=== PATIENT | female | born 1980 | race Caucasian/White ===

== ENCOUNTER → 2017-01-24 | Outpatient (CLI) | payer OTHER ==
[2017-01-24 07:54] LABS: Blood Urea Nitrogen 17 mg/dL (7-17); Cholesterol 184 mg/dL (<200); Glucose 90 mg/dL (74-99); HDL Cholesterol 60 mg/dL (40-60); Non-African American GFR(MDRD) >60 (>60 ml/min/1.73 sqM); Triglycerides 126 mg/dL (<150)
[2017-01-24 09:13] LABS: Hemoglobin A1C 5.1 % (4.2-6.1)
[2017-01-24 11:07] LABS: Lithium 0.4 mmol/L
== END | disposition home or self-care (01) ==
LOC: LABWHC1 07:11
PROVIDERS: ATTEND Psychiatry & Neurology Psychiatry
DX: Z51.81 Encounter for therapeutic drug level monitoring (principal); Z79.899 Other long term (current) drug therapy
CPT/HCPCS: 36415; 80061; 80178; 82565; 82947; 83036; 84439; 84443; 84520

== ENCOUNTER 2017-02-02 19:40 | Emergency (ER) | payer OTHER ==
[2017-02-02 19:55] VITALS: BP 135/76; PULSE 100; RESP 18; TEMP 97
--- NOTE | 2017-02-02 20:15 | ED ---
General Adult HPI - General Chief complaint: Extremity Problem,Nontraumatic Stated complaint: leg swelling/burning/numbness Time Seen by Provider: 02/02/17 20:04 Source: patient, RN notes reviewed Mode of arrival: wheelchair Limitations: no limitations - History of Present Illness Initial comments: 36-year-old female presenting for left foot pain and swelling. Patient states this began about 3 days ago and has been persistent. States she feels a sensation like her toes are turning blue and she is concerned she is not getting good blood flow to them. She states that she did recently get started on a thyroid medication for low thyroid levels about a week ago. She denies any history of blood clots. She denies any shortness of breath or chest pain associated. She denies any trauma or injury. - Related Data Home Medications Medication Instructions Recorded Confirmed ARIPiprazole [Abilify] 10 mg PO HS 02/02/17 02/02/17 Dextroamphetamine/Amphetamine 20 mg PO BID 02/02/17 02/02/17 [Adderall] Levomilnacipran Hydrochloride 40 mg PO HS 02/02/17 02/02/17 [Fetzima] Levothyroxine Sodium [Synthroid] 50 mcg PO DAILY 02/02/17 02/02/17 [place] Carbonate 600 mg PO HS 02/02/17 02/02/17 Allergies Allergy/AdvReac Type Severity Reaction Status Date / Time cephalexin monohydrate Allergy Mild Dyspnea Verified 02/02/17 20:17 [From [employer]] Review of Systems ROS Statement: Those systems with pertinent positive or pertinent negative responses have been documented in the HPI. ROS Other: All systems not noted in ROS Statement are negative. 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 Additional Past Medical History / Comment(s): Narcolepsy History of Any Multi-Drug Resistant Organisms: None Reported Past Surgical History: Hernia Repair Past Psychological History: Bipolar, Depression Smoking Status: Heavy tobacco smoker Past Alcohol Use History: None Reported Additional Past Alcohol Use History / Comment(s): He is a smoker one pack per day since she was 10 years of age. She denies any street drug or marijuana use. She drinks alcohol very rare basis. Patient is . 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 Past Drug Use History: None Reported Additional Drug Use History / Comment(s): none - Past Family History Mother Family Medical History: Cancer Additional Family Medical History / Comment(s): Mother of lung cancer with history of smoking. Father Additional Family Medical History / Comment(s): Father from suicide. He had history of alcoholism and drug abuse. Sister(s) Additional Family Medical History / Comment(s): She has one sister with no major medical problems. Brother(s) Additional Family Medical History / Comment(s): She has 2 half brothers with no major medical problems. Daughter(s) Additional Family Medical History / Comment(s): She has 4 children. One daughter at 17, son 14, son 12, son 6. Youngest has autism. General Exam - General Exam Comments Initial Comments: General: Awake and Alert. No acute distress. Does not appear acutely ill. Eyes: RUDDY, EOM intact. No nystagmus. No scleral icterus. HENT: Atraumatic, normocephalic. Mucous membranes moist. Trachea midline. Neck: The neck is supple, there is no tenderness or JVD. Cardiovascular: Regular rate and rhythm. No murmur, rub, or gallop is appreciated. Distal pulses intact, 2+ PT and DP bilaterally. Respiratory: Lungs are clear to auscultation bilaterally. No wheezes, rales, rhonchi. No respiratory distress. Gastrointestinal: Soft, Nontender. No rebound or guarding. Non-distended. No masses or organomegaly noted. No CVA tenderness. Musculoskeletal: Mild tenderness to the bottom of the left foot, trace swelling in this area. Otherwise MSK exam with no tenderness. Normal ROM. No gross deformity. No strength deficits. Neurological: A&Ox3. CN II-XII grossly intact, There are no obvious motor or sensory deficits. Coordination appears grossly intact. Speech is normal. Skin: Skin is warm and dry and no rashes or lesions are noted. Psychiatric: Cooperative, appropriate mood & affect, normal judgment. Limitations: no limitations Course Vital Signs 02/02/17 19:51 Temperature 97 F L Pulse Rate 100 Respiratory 18 Rate Blood Pressure 135/76 O2 Sat by Pulse 99 Oximetry Medical Decision Making - Medical Decision Making 36-year-old female presented for left foot pain and swelling. Vitals are stable. Examination with mild tenderness to the bottom of the foot and possible trace edema. She has good arterial pulses intact B/L DP and PT. There is no calf pain on exam. There is lower suspicion of DVT however given symptoms left lower extremity duplex was performed with no evidence of DVT. Discussed that this could be possible side effect to recent initiation of her thyroid medication. Recommend NSAIDs for pain. Recommend heat and elevation as needed. Discussed close follow-up with PCP for further evaluation. Discussed concerning signs symptoms for immediate return to the ED. Patient is agreeable with plan and discharge home. - Radiology Data Radiology results: report reviewed Disposition Clinical Impression: Left foot pain, Foot swelling Disposition: HOME SELF-CARE Condition: Stable Instructions: Swollen Joint (ED), Levothyroxine (By mouth) Referrals: Ashley Dunbar MD [Primary Care Provider] - 1-2 days Time of Disposition: 21:00
--- NOTE | 2017-02-02 20:45 | US ---
EXAMINATION TYPE: US venous doppler duplex LE LT DATE OF EXAM: 02/02/2017 8:36 PM COMPARISON: NONE CLINICAL HISTORY: Pain in left foot. Patient states she noticed swelling in her left foot x3 days ago SIDE PERFORMED: Left VESSELS IMAGED: External Iliac Vein (EIV) Common Femoral Vein Deep Femoral Vein Greater Saphenous Vein * Femoral Vein Popliteal Vein Small Saphenous Vein * Proximal Calf Veins (* superficial vessels) TECHNOLOGIST IMPRESSION: Left Leg: Negative for DVT IMPRESSION: No sonographic evidence of deep venous thrombosis within the left lower extremity.
== END 2017-02-02 21:04 | disposition home or self-care (01) ==
LOC: EC 19:40
DX: M79.672 Pain in left foot (principal); M79.89 Other specified soft tissue disorders; F31.9 Bipolar disorder, unspecified; F17.200 Nicotine dependence, unspecified, uncomplicated; Z79.899 Other long term (current) drug therapy; Z88.1 Allergy status to other antibiotic agents
CPT/HCPCS: 99283

== ENCOUNTER → 2017-04-11 | Outpatient (CLI) | payer OTHER ==
[2017-04-11 10:48] LABS: Lithium 0.5 mmol/L
== END | disposition home or self-care (01) ==
LOC: LABWHC1 08:50
PROVIDERS: ATTEND Psychiatry & Neurology Psychiatry
DX: Z51.81 Encounter for therapeutic drug level monitoring (principal); Z79.899 Other long term (current) drug therapy
CPT/HCPCS: 36415; 80178; 84439; 84443

== ENCOUNTER → 2017-05-31 | Outpatient (CLI) | payer OTHER | END | disposition home or self-care (01) | LOC: LABWHC1 12:37 | PROVIDERS: ATTEND Internal Medicine Sleep Medicine | DX: G47.419 Narcolepsy without cataplexy (principal) | CPT/HCPCS: 36415 ==

== ENCOUNTER → 2018-01-02 | Outpatient (CLI) | payer OTHER ==
[2018-01-02 09:38] LABS: Basophils # (A) 0.1 k/uL (0-0.2); Basophils % (A) 1 %; Eosinophils # (A) 0.3 k/uL (0-0.7); Eosinophils % (A) 2 %; HCT 45.5 % (34.0-46.0); HGB 14.8 gm/dL (11.4-16.0); Lymphocytes # (A) 2.5 k/uL (1.0-4.8); Lymphocytes % (A) 19 %; MCH 29.6 pg (25.0-35.0); MCHC 32.6 g/dL (31.0-37.0); MCV 90.9 fL (80.0-100.0); Mean Platelet Volume 7.9; Monocytes # (A) 0.6 k/uL (0-1.0); Monocytes % (A) 5 %; Neutrophils # (A) 9.5 k/uL (1.3-7.7); Neutrophils % (A) 72 %; Platelet Count 242 k/uL (150-450); RBC 5.01 m/uL (3.80-5.40); RDW 11.9 % (11.5-15.5); WBC 13.2 k/uL (3.8-10.6)
[2018-01-02 10:49] LABS: ALT 27 U/L (9-52); AST 17 U/L (14-36); Albumin 4.4 g/dL (3.5-5.0); Alkaline Phosphatase 67 U/L (38-126); Anion Gap 9 mmol/L; Blood Urea Nitrogen 16 mg/dL (7-17); Calcium 10.1 mg/dL (8.4-10.2); Carbon Dioxide 28 mmol/L (22-30); Chloride 103 mmol/L (98-107); Cholesterol 176 mg/dL (<200); Glucose 94 mg/dL (74-99); HDL Cholesterol 52 mg/dL (40-60); LDL Cholesterol,Calculated 91 mg/dL (0-99); Lithium 0.4 mmol/L; Potassium 5.3 mmol/L (3.5-5.1); Sodium 140 mmol/L (137-145); Total Bilirubin 0.3 mg/dL (0.2-1.3); Total Protein 7.1 g/dL (6.3-8.2); Triglycerides 165 mg/dL (<150)
[2018-01-02 11:04] LABS: T4, Free (Free Thyroxine) 0.83 ng/dL (0.78-2.19)
[2018-01-02 16:36] LABS: Hemoglobin A1C 5.4 % (4.0-6.0)
== END | disposition home or self-care (01) ==
LOC: LABWHC1 09:01
PROVIDERS: ATTEND Nurse Practitioner
DX: F31.81 Bipolar II disorder (principal); G47.419 Narcolepsy without cataplexy; Z79.899 Other long term (current) drug therapy
CPT/HCPCS: 36415; 80053; 80061; 80178; 83036; 84439; 84443; 85025

== ENCOUNTER 2018-10-22 09:11 | Observation (INO) | payer OTHER ==
[2018-10-22] MEDS ORDERED: SODIUM CHLORIDE 0.9% 1,000 ML IV STA (09:33)
[2018-10-22 09:38] LABS: Glucose,Whole Blood 109 mg/dL (75-99)
[2018-10-22 09:56] LABS: Basophils # (A) 0.1 k/uL (0-0.2); Basophils % (A) 1 %; Eosinophils # (A) 0.1 k/uL (0-0.7); Eosinophils % (A) 1 %; HCT 44.1 % (34.0-46.0); HGB 14.8 gm/dL (11.4-16.0); Lymphocytes # (A) 2.6 k/uL (1.0-4.8); Lymphocytes % (A) 24 %; MCH 29.9 pg (25.0-35.0); MCHC 33.5 g/dL (31.0-37.0); MCV 89.3 fL (80.0-100.0); Mean Platelet Volume 8.4; Monocytes # (A) 0.5 k/uL (0-1.0); Monocytes % (A) 5 %; Neutrophils # (A) 7.4 k/uL (1.3-7.7); Neutrophils % (A) 68 %; Platelet Count 226 k/uL (150-450); RBC 4.93 m/uL (3.80-5.40); RDW 12.1 % (11.5-15.5); WBC 10.8 k/uL (3.8-10.6)
[2018-10-22 10:03] LABS: Appearance,Urine Clear (Clear); Bilirubin,Urine Negative (Negative); Blood,Urine Small (Negative); Color,Urine Light Yellow; Glucose,Urine (UA) Negative (Negative); Ketones,Urine Negative (Negative); Leukocyte Esterase,Urine Negative (Negative); Nitrite,Urine Negative (Negative); Protein,Urine Negative (Negative); Specific Gravity,Urine 1.003 (1.001-1.035); Squamous Epithelial Cell,Urine 2 /hpf (0-4); Urobilinogen,Urine <2.0 mg/dL (<2.0); WBC,Urine 1 /hpf (0-5)
[2018-10-22 10:11] LABS: ALT 20 U/L (9-52); AST 17 U/L (14-36); Albumin 4.4 g/dL (3.5-5.0); Alkaline Phosphatase 65 U/L (38-126); Anion Gap 8 mmol/L; Blood Urea Nitrogen 14 mg/dL (7-17); Calcium 9.9 mg/dL (8.4-10.2); Carbon Dioxide 26 mmol/L (22-30); Chloride 106 mmol/L (98-107); Glucose 106 mg/dL (74-99); Magnesium 1.9 mg/dL (1.6-2.3); Potassium 4.3 mmol/L (3.5-5.1); Sodium 140 mmol/L (137-145); Total Bilirubin 0.4 mg/dL (0.2-1.3); Total Protein 7.3 g/dL (6.3-8.2)
[2018-10-22 10:14] LABS: Creatine Kinase 74 U/L (30-135)
--- NOTE | 2018-10-22 10:14 | XR ---
EXAMINATION TYPE: XR chest 2V DATE OF EXAM: 10/22/2018 COMPARISON: 07/26/2015 HISTORY: Altered mental status TECHNIQUE: Frontal and lateral views of the chest are obtained. FINDINGS: There is no focal air space opacity, pleural effusion, or pneumothorax seen. The cardiac silhouette size is within normal limits. The osseous structures are intact. IMPRESSION: No acute cardiopulmonary process.
--- NOTE | 2018-10-22 10:17 | CT ---
EXAMINATION TYPE: CT brain wo con DATE OF EXAM: 10/22/2018 COMPARISON: none HISTORY: Lt facial numbness CT DLP: 1123.4 mGycm. Automated Exposure Control for Dose Reduction was Utilized. TECHNIQUE: CT scan of the head is performed without contrast. FINDINGS: There is no acute intracranial hemorrhage, mass effect, or midline shift identified. The ventricles and sulci are within normal limits in size. The globes are intact and the visualized sin uses are remarkable for possible mucus retention cyst or polyp left maxillary sinus. IMPRESSION: No acute intracranial hemorrhage, mass effect, or midline shift is seen.
[2018-10-22 10:20] LABS: INR 1.1 (<1.2); Partial Thromboplastin Time 24.6 sec (22.0-30.0); Prothrombin Time 10.3 sec (9.0-12.0)
[2018-10-22 10:27] LABS: Creatine Kinase MB 1.3 ng/mL (0.0-2.4); Troponin I <0.012 ng/mL (0.000-0.034)
--- NOTE | 2018-10-22 11:57 | ED ---
Neuro HPI - General Chief Complaint: Neuro Symptoms/Deficit Stated Complaint: lt sided facial numbness Time Seen by Provider: 10/22/18 09:20 Source: patient Mode of arrival: ambulatory Limitations: no limitations - History of Present Illness Is the patient presenting with stroke symptoms?: Yes - Related Data Home Medications: Home Medications Medication Instructions Recorded Confirmed Dextroamphetamine/Amphetamine 20 mg PO BID 02/02/17 10/22/18 [Adderall] [place] Carbonate 600 mg PO HS 02/02/17 10/22/18 Allergies/Adverse Reactions: Allergies Allergy/AdvReac Type Severity Reaction Status Date / Time cephalexin monohydrate Allergy Mild Dyspnea Verified 10/22/18 09:49 [From Keflex] Review of Systems ROS Statement: Those systems with pertinent positive or pertinent negative responses have been documented in the HPI. ROS Other: All systems not noted in ROS Statement are negative. General Exam Limitations: no limitations Stroke MDM - Lab Data Result diagrams: 10/22/18 09:32 10/22/18 09:32 Lab Results 10/22/18 10/22/18 10/22/18 Range/Units 09:32 09:32 09:32 WBC 10.8 H (3.8-10.6) k/uL RBC 4.93 (3.80-5.40) m/uL Hgb 14.8 (11.4-16.0) gm/dL Hct 44.1 (34.0-46.0) % MCV 89.3 (80.0-100.0) fL MCH 29.9 (25.0-35.0) pg MCHC 33.5 (31.0-37.0) g/dL RDW 12.1 (11.5-15.5) % Plt Count 226 (150-450) k/uL Neutrophils % 68 % Lymphocytes % 24 % Monocytes % 5 % Eosinophils % 1 % Basophils % 1 % Neutrophils # 7.4 (1.3-7.7) k/uL Lymphocytes # 2.6 (1.0-4.8) k/uL Monocytes # 0.5 (0-1.0) k/uL Eosinophils # 0.1 (0-0.7) k/uL Basophils # 0.1 (0-0.2) k/uL PT (9.0-12.0) sec INR (<1.2) APTT (22.0-30.0) sec Sodium 140 (137-145) mmol/L Potassium 4.3 (3.5-5.1) mmol/L Chloride 106 (98-107) mmol/L Carbon Dioxide 26 (22-30) mmol/L Anion Gap 8 mmol/L BUN 14 (7-17) mg/dL Creatinine 0.73 (0.52-1.04) mg/dL Est GFR (CKD-EPI)AfAm >90 (>60 ml/min/1.73 sqM) Est GFR (CKD-EPI)NonAf >90 (>60 ml/min/1.73 sqM) Glucose 106 H (74-99) mg/dL POC Glucose (mg/dL) (75-99) mg/dL POC Glu Healthcare Business Analyst ID Calcium 9.9 (8.4-10.2) mg/dL Magnesium 1.9 (1.6-2.3) mg/dL Total Bilirubin 0.4 (0.2-1.3) mg/dL AST 17 (14-36) U/L ALT 20 (9-52) U/L Alkaline Phosphatase 65 (38-126) U/L Total Creatine Kinase 74 (30-135) U/L CK-MB (CK-2) 1.3 (0.0-2.4) ng/mL CK-MB (CK-2) Rel Index 1.8 Troponin I <0.012 (0.000-0.034) ng/mL Total Protein 7.3 (6.3-8.2) g/dL Albumin 4.4 (3.5-5.0) g/dL Urine Color Urine Appearance (Clear) Urine pH (5.0-8.0) Ur Specific [place] (1.001-1.035) Urine Protein (Negative) Urine Glucose (UA) (Negative) Urine Ketones (Negative) Urine Blood (Negative) Urine Nitrite (Negative) Urine Bilirubin (Negative) Urine Urobilinogen (<2.0) mg/dL Ur Leukocyte Esterase (Negative) Urine WBC (0-5) /hpf Ur Squamous Epith Cells (0-4) /hpf 10/22/18 10/22/18 10/22/18 Range/Units 09:32 09:32 09:37 WBC (3.8-10.6) k/uL RBC (3.80-5.40) m/uL Hgb (11.4-16.0) gm/dL Hct (34.0-46.0) % MCV (80.0-100.0) fL MCH (25.0-35.0) pg MCHC (31.0-37.0) g/dL RDW (11.5-15.5) % Plt Count (150-450) k/uL Neutrophils % % Lymphocytes % % Monocytes % % Eosinophils % % Basophils % % Neutrophils # (1.3-7.7) k/uL Lymphocytes # (1.0-4.8) k/uL Monocytes # (0-1.0) k/uL Eosinophils # (0-0.7) k/uL Basophils # (0-0.2) k/uL PT 10.3 (9.0-12.0) sec INR 1.1 (<1.2) APTT 24.6 (22.0-30.0) sec Sodium (137-145) mmol/L Potassium (3.5-5.1) mmol/L Chloride (98-107) mmol/L Carbon Dioxide (22-30) mmol/L Anion Gap mmol/L BUN (7-17) mg/dL Creatinine (0.52-1.04) mg/dL Est GFR (CKD-EPI)AfAm (>60 ml/min/1.73 sqM) Est GFR (CKD-EPI)NonAf (>60 ml/min/1.73 sqM) Glucose (74-99) mg/dL POC Glucose (mg/dL) 109 H (75-99) mg/dL POC Glu Healthcare Business Analyst ID Swetha Wilson Calcium (8.4-10.2) mg/dL Magnesium (1.6-2.3) mg/dL Total Bilirubin (0.2-1.3) mg/dL AST (14-36) U/L ALT (9-52) U/L Alkaline Phosphatase (38-126) U/L Total Creatine Kinase (30-135) U/L CK-MB (CK-2) (0.0-2.4) ng/mL CK-MB (CK-2) Rel Index Troponin I (0.000-0.034) ng/mL Total Protein (6.3-8.2) g/dL Albumin (3.5-5.0) g/dL Urine Color Light Yellow Urine Appearance Clear (Clear) Urine pH 7.0 (5.0-8.0) Ur Specific [place] 1.003 (1.001-1.035) Urine Protein Negative (Negative) Urine Glucose (UA) Negative (Negative) Urine Ketones Negative (Negative) Urine Blood Small H (Negative) Urine Nitrite Negative (Negative) Urine Bilirubin Negative (Negative) Urine Urobilinogen <2.0 (<2.0) mg/dL Ur Leukocyte Esterase Negative (Negative) Urine WBC 1 (0-5) /hpf Ur Squamous Epith Cells 2 (0-4) /hpf - NIH Stroke Scale 1a. Level of Consciousness: (0) alert 1b. LOC Questions: (0) answers correctly 1c. LOC Commands: (0) performs tasks correctly 3. Visual: (0) no visual loss 4. Facial Palsy: (0) normal symmetrical movement 5a. Motor Arm Left: (0) no drift 5b. Motor Arm Right: (0) no drift 6a. Motor Leg Left: (0) no drift 6b. Motor Leg Right: (0) no drift 7. Limb Ataxia: (0) absent 8. Sensory: (1) mild/moderate sensory loss 9. Best Language: (0) no aphasia 10. Dysarthria: (0) normal 11. Extinction/Inattention: (0) no abnormality - Thrombolytic Inclusion/Exclusion Thrombolytic Exclusion Criteria: Symptom Onset > 3 Hours - Medical Decision Making I did review the imaging and the tests were performed patient is no evidence of acute findings. She does still have left facial left extremity numbness compared to the right side. She does state that since he began 4 days ago. She currently is not a candidate for intervention she will be admitted for further inpatient evaluation. 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 Additional Past Medical History / Comment(s): Narcolepsy History of Any Multi-Drug Resistant Organisms: None Reported Past Surgical History: Hernia Repair Past Psychological History: Bipolar, Depression Smoking Status: Heavy tobacco smoker Past Alcohol Use History: None Reported Past Drug Use History: None Reported - Past Family History Mother Family Medical History: Cancer Additional Family Medical History / Comment(s): Mother of lung cancer with history of smoking. Father Additional Family Medical History / Comment(s): Father from suicide. He had history of alcoholism and drug abuse. Sister(s) Additional Family Medical History / Comment(s): She has one sister with no major medical problems. Brother(s) Additional Family Medical History / Comment(s): She has 2 half brothers with no major medical problems. Daughter(s) Additional Family Medical History / Comment(s): She has 4 children. One daughter at 17, son 14, son 12, son 6. Youngest has autism. Course Vital Signs 10/22/18 10/22/18 10/22/18 09:14 10:30 11:00 Temperature 98.3 F Pulse Rate 100 86 77 Respiratory 18 20 15 Rate Blood Pressure 135/82 125/89 119/75 O2 Sat by Pulse 100 99 99 Oximetry - Reevaluation(s) Reevaluation #1: 10/22/18 11:51 I did reevaluate the patient after return from CAT scan she has no change in her symptoms. Disposition Clinical Impression: Cerebrovascular accident, Paresthesia Disposition: ADMITTED IP TO THIS [facility] Condition: Stable Referrals: Zuleima Bullock MD [Primary Care Provider] - 1-2 days
[2018-10-22] MEDS ORDERED: ASPIRIN 325 MG TAB PO STA (12:00)
[2018-10-22] MEDS ORDERED: NICOTINE 21MG/24HR PATCH TRANSDERM STA (12:10)
[2018-10-22] MEDS ORDERED: TEMAZEPAM 15 MG CAP PO PRN (15:07)
[2018-10-22] MEDS ORDERED: HYDROcodone/APAP 5-325MG 1 EACH TAB PO PRN (15:07)
[2018-10-22] MEDS ORDERED: ALPRAZolam 0.25 MG TAB PO PRN (15:07)
[2018-10-22] MEDS: SODIUM CHLORIDE 0.9% 1,000 ML IV SCH (17:38)
--- NOTE | 2018-10-22 19:31 | HP ---
HISTORY AND PHYSICAL DATE OF SERVICE: 10/22/2018 CHIEF COMPLAINT: Numbness and weakness of the left side of the body. HISTORY OF PRESENT ILLNESS: This 38-year-old woman with a past medical history of multiple medical problems including narcolepsy, UTI and hernia repair, bilateral inguinal hernia, bipolar depression being followed by Dr. Bullock in the outpatient setting, was complaining of numbness and weakness of the left side of the body. The patient reports several stressors and because of lack of improvement, the patient came to [facility] and was admitted for further evaluation and treatment. There is no history of fever, rigors. No history of headache, loss of consciousness, seizures. PAST MEDICAL HISTORY: Narcolepsy, UTI, bipolar depression. MEDICATIONS: Prior to admission include home medications are: 1. Adderall 20 mg p.o. b.i.d. 2. [place] carbonate 600 mg q.h.s. ALLERGIES: KEFLEX. FAMILY HISTORY: History of lung cancer. SOCIAL HISTORY: History of smoking. Occasional alcohol intake. REVIEW OF SYSTEMS: ENT: No diminished hearing or vision. CARDIOVASCULAR: No angina or palpitations. Respirations: No cough or hemoptysis. GI: No nausea or vomiting. : No dysuria. NERVOUS SYSTEM: No numbness or weakness. ALLERGY/IMMUNOLOGY: No asthma or hay fever. MUSCULOSKELETAL: As mentioned earlier. Hematology/Oncology: No history of anemia. ENDOCRINE: No history of diabetes or hypothyroidism. CONSTITUTIONAL: As mentioned earlier. Dermatology: Negative. Rheumatology: Negative. Psychiatry: As mentioned earlier. PHYSICAL EXAM: Patient is alert, oriented x3. The pulse is 78, blood pressure 112/74, respiration 18, temp is normal. Pulse ox 100 percent on room air. HEENT: Conjunctivae normal. Oral mucosa moist. Neck is no jugular venous distention. No carotid bruit. No lymph node enlargement. Cardiovascular: S1, S2. Respiratory: Breath sounds diminished in the bases. No rhonchi. No crackles. ABDOMEN: Soft, nontender. No mass palpable. Legs: No edema. No swelling. NERVOUS SYSTEM: Higher functions as mentioned earlier. Moves all 4 limbs. No focal motor or sensory deficits. Minimal left facial deviation noted. Otherwise, no sensory abnormality. No sensory or cerebellar dysfunction. Gait normal. Skin: No ulcer, rash or bleeding. JOINTS: No active deforming arthropathy. LABS: At this time shows WBC 10.8 and glucose 106. ASSESSMENT: 1. Numbness and weakness left side of the body, possible acute transient ischemic attack. 2. History of narcolepsy. 3. History of urinary tract infection. 4. Bilateral inguinal hernia repair. 5. Bipolar depression. 6. History of continued ongoing nicotine dependence. RECOMMENDATIONS AND DISCUSSION: This 38-year-old woman who presented with multiple complex medical issues, we will monitor the patient closely, continue the current medications, management and symptomatic treatment. Initiate antiplatelet agents. Otherwise continue to monitor. Smoking cessation. Resume the home medications. I would also recommend lipid panel in the morning. Prognosis guarded. Further recommendations to follow. MMODL / IJN: [id number] /
--- NOTE | 2018-10-22 20:10 | P.CNNES ---
History of Present Illness Consult date: 10/22/18 History of Present Illness: The patient is a 38-year-old right-handed white female who states that today she noticed some numbness in the left upper and lower lip area. She states a 4 days ago she noticed a change in [place] temperature sensation in the left arm and left hand. She also noticed some numbness in the left leg at that time. Also she complains of swelling in the fingers of both hands. She felt that heat sensation in the back of her neck earlier today. She denies any visual disturbance or headache. She denies any swallowing difficulty. The patient takes lithium for bipolar disorder disease but decided to taper off of it over a one-week period. The patient did not inform her psychiatrist regarding this taper. She decided to come off of lithium she states she is not sure. Review of Systems Constitutional: Denies chills, Denies fever Ears, nose, mouth and throat: Denies headache, Denies sore throat Cardiovascular: Denies chest pain, Denies shortness of breath Respiratory: Denies cough Gastrointestinal: Denies abdominal pain, Denies diarrhea, Denies nausea, Denies vomiting Genitourinary: Denies dysuria, Denies hematuria Musculoskeletal: Denies myalgias Neurological: Denies numbness, Denies weakness Psychiatric: Denies anxiety, Denies depression 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 Additional Past Medical History / Comment(s): Narcolepsy, UTI History of Any Multi-Drug Resistant Organisms: None Reported Past Surgical History: Hernia Repair Additional Past Surgical History / Comment(s): Bilateral inguinal hernia repairs Past Anesthesia/Blood Transfusion Reactions: No Reported Reaction Smoking Status: Current every day smoker - Past Family History Mother Family Medical History: Cancer Additional Family Medical History / Comment(s): Mother of lung cancer with history of smoking. Father Additional Family Medical History / Comment(s): Father from suicide. He had history of alcoholism and drug abuse. Sister(s) Additional Family Medical History / Comment(s): She has one sister with no major medical problems. Brother(s) Additional Family Medical History / Comment(s): She has 2 half brothers with no major medical problems. Daughter(s) Additional Family Medical History / Comment(s): She has 4 children. One daughter at 20, son 17, son 15, son 9. Youngest has autism. Medications and Allergies Home Medications Medication Instructions Recorded Confirmed Type Dextroamphetamine/Amphetamine 20 mg PO BID 02/02/17 10/22/18 History [Adderall] [place] Carbonate 600 mg PO HS 02/02/17 10/22/18 History Allergies Allergy/AdvReac Type Severity Reaction Status Date / Time cephalexin monohydrate Allergy Mild Dyspnea Verified 10/22/18 09:49 [From Keflex] Physical Examination - Vital Signs Vital Signs: Vital Signs Temp Pulse Pulse Resp BP BP Pulse Ox 10/22/18 19:51 98.0 F 80 16 123/73 100 10/22/18 17:45 98.7 F 84 142/86 99 10/22/18 17:00 87 18 123/62 99 10/22/18 15:00 85 20 123/75 99 10/22/18 14:00 97 18 123/75 99 10/22/18 13:00 69 18 113/76 98 10/22/18 12:00 78 18 112/74 100 10/22/18 11:00 77 15 119/75 99 10/22/18 10:30 86 20 125/89 99 10/22/18 09:14 98.3 F 100 18 135/82 100 Intake and Output 10/22/18 10/22/18 10/22/18 06:59 14:59 22:59 Other: Weight 63.503 kg - Constitutional General appearance: cooperative - EENT EENT: PERRL, vision intact - Respiratory Respiratory: lungs clear - Cardiovascular Cardiovascular: regular rate, normal S1 - Neurologic Neurologic examination: Mental status: She was awake alert and oriented 3. Her speech was fluent. There is no a aphasia or dysarthria. Cranial nerve examination: Cranial nerves II through XII grossly intact Motor examination: 5 out of 5 throughout Sensory examination: Slightly decreased light touch left leg and left arm Deep tendon reflexes: 1+ and symmetric Coordination: Finger to nose [id number] intact Gait: Not tested Results - Laboratory Findings CBC and BMP: 10/22/18 09:32 10/22/18 09:32 Abnormal Lab Findings: Abnormal Labs 10/22/18 10/22/18 10/22/18 09:32 09:32 09:32 WBC 10.8 H Glucose 106 H POC Glucose (mg/dL) Urine Blood Small H 10/22/18 09:37 WBC Glucose POC Glucose (mg/dL) 109 H Urine Blood Assessment and Plan (1) Left sided numbness Current Visit: Yes Status: Acute SNOMED Code(s): 36704618 (2) Depression Current Visit: No Status: Acute SNOMED Code(s): 59735862 Plan: The patient is a 38-year-old woman who has been experiencing some left-sided symptoms for the past 4 days. Her neurologic examination demonstrates decreased subjective numbness on the left arm and leg. Commend further evaluation with MRI of the brain rule out underlying demyelinating disease. will have a stroke workup including carotid ultrasound and echocardiogram. The patient has had some medication changes in the past week when she self titrated down her lithium. She did this without physician instruction. Recommend psych evaluation for bipolar disorder. Patient has been started on aspirin.
[2018-10-22] MEDS: HEPARIN SODIUM,PORCINE 5,000 UNIT/ML 1 ML VIAL SQ SCH (20:35)
[2018-10-22] MEDS: LITHIUM CARBONATE 300 MG CAP PO SCH (20:35)
[2018-10-22] MEDS: FAMOTIDINE 20 MG TAB PO SCH (20:36)
[2018-10-22] MEDS ORDERED: NON-FORMULARY DRUG (Dextroamphetamine/Amphetamine [Adderall] 20 MG) PO SCH (21:00)
--- NOTE | 2018-10-23 01:54 | US ---
EXAMINATION TYPE: US carotid duplex BILAT DATE OF EXAM: 10/22/2018 COMPARISON: NONE CLINICAL HISTORY: Left-sided numbness. Left side weakness. EXAM MEASUREMENTS: RIGHT: Peak Systolic Velocity (PSV) cm/sec ----- Right CCA: 84.2 ----- Right ICA: 117.7 ----- Right ECA: 101.6 ICA/CCA ratio: 1.4 RIGHT: End Diastole cm/sec ----- Right CCA: 30.4 ----- Right ICA: 64.4 ----- Right ECA: 22.5 LEFT: Peak Systolic Velocity (PSV) cm/sec ----- Left CCA: 91.9 ----- Left ICA: 85.4 ----- Left ECA: 103.2 ICA/CCA ratio: 0.9 LEFT: End Diastole cm/sec ----- Left CCA: 37.0 ----- Left ICA: 38.6 ----- Left ECA: 22.5 VERTEBRALS (direction of flow): Right Vertebral: Antegrade Left Vertebral: Antegrade Rhythm: Normal No significant stenosis seen IMPRESSION: There is antegrade flow in the vertebral arteries. The images and measurements suggest c lose to 0% stenosis in both internal carotid arteries. Criteria for Assigning % of Stenosis / Diameter reduction (Estimation based on the indirect measurements of the internal carotid artery velocities (ICA PSV). 1. Normal (no stenosis)=ICA PSV < 125 cm/s: ratio < 2.0: ICA EDV<40 cm/s. 2. Less than 50% stenosis=ICA PSV < 125 cm/s: ratio < 2.0: ICA EDV<40 cm/s. 3. 50 to 69% stenosis=ICA PSV of 125 to 230 cm/s: ration 2.0 ? 4.0: ICA EDV 40-100 cm/s. 4. Greater than 70% stenosis to near occlusion= ICA PSV > 230 cm/s: ratio > 4.0: ICA EDV > 100 cm/s. 5. Near occlusion= ICA PSV velocities may be low or undetectable: variable ratio and ICA EDV. 6. Total occlusion=unable to detect flow.
[2018-10-23] MEDS: ACETAMINOPHEN TAB 500 MG TAB PO PRN (06:33)
[2018-10-23] MEDS: PANTOPRAZOLE 40 MG TABLET PO SCH (06:33)
[2018-10-23 06:47] LABS: Basophils % (A) 0 %; Eosinophils # (A) 0.2 k/uL (0-0.7); Eosinophils % (A) 3 %; HCT 40.9 % (34.0-46.0); HGB 13.4 gm/dL (11.4-16.0); Lymphocytes # (A) 3.2 k/uL (1.0-4.8); Lymphocytes % (A) 44 %; MCH 29.9 pg (25.0-35.0); MCHC 32.8 g/dL (31.0-37.0); Mean Platelet Volume 8.4; Monocytes # (A) 0.3 k/uL (0-1.0); Monocytes % (A) 5 %; Neutrophils # (A) 3.4 k/uL (1.3-7.7); Neutrophils % (A) 46 %; Platelet Count 201 k/uL (150-450); RBC 4.49 m/uL (3.80-5.40); RDW 12.1 % (11.5-15.5); WBC 7.4 k/uL (3.8-10.6)
[2018-10-23 06:55] LABS: Anion Gap 5 mmol/L; Blood Urea Nitrogen 13 mg/dL (7-17); Calcium 9.4 mg/dL (8.4-10.2); Carbon Dioxide 29 mmol/L (22-30); Chloride 107 mmol/L (98-107); Cholesterol 144 mg/dL (<200); Glucose 88 mg/dL (74-99); HDL Cholesterol 42 mg/dL (40-60); LDL Cholesterol,Calculated 75 mg/dL (0-99); Sodium 141 mmol/L (137-145); Triglycerides 134 mg/dL (<150)
[2018-10-23] MEDS: NICOTINE 14MG/24HR PATCH TRANSDERM SCH (08:42)
[2018-10-23] MEDS: CLOPIDOGREL 75 MG TAB PO SCH (08:42)
[2018-10-23] MEDS: FAMOTIDINE 20 MG TAB PO SCH (08:42)
[2018-10-23] MEDS: HEPARIN SODIUM,PORCINE 5,000 UNIT/ML 1 ML VIAL SQ SCH ×2 (08:42→21:32)
--- NOTE | 2018-10-23 11:21 | ECHOF ---
Referral Reason:Left-sided numbness MEASUREMENTS -------- HEIGHT: 160.0 cm WEIGHT: 61.2 kg BP: 115/70 RVIDd: 2.6 cm (< 3.3) IVSd: 0.8 cm (0.6 - 1.1) LVIDd: 4.0 cm (3.9 - 5.3) LVPWd: 0.9 cm (0.6 - 1.1) IVSs: 1.2 cm LVIDs: 2.8 cm LVPWs: 1.2 cm LA Diam: 2.7 cm (2.7 - 3.8) LAESV Index (A-L): 24.03 ml/m Ao Diam: 2.6 cm (2.0 - 3.7) AV Cusp: 1.9 cm (1.5 - 2.6) MV EXCURSION: 21.085 mm (> 18.000) MV EF SLOPE: 166 mm/s (70 - 150) EPSS: 0.2 cm MV E Jem: 1.07 m/s MV DecT: 239 ms MV A Jem: 0.74 m/s MV E/A Ratio: 1.44 FINDINGS -------- Sinus rhythm. This was a technically good study. The left ventricular size is normal. Left ventricular wall thickness is normal. Overall left vent ricular systolic function is normal with, an EF between 55 - 60 %. The right ventricle is normal in size. Normal LA size by volume 22+/-6 ml/m2. The right atrium is normal in size. The aortic valve is trileaflet, and appears structurally normal. No aortic stenosis or regurgitation. The mitral valve is normal. There is trace mitral regurgitation. The tricuspid valve appears structurally normal. There is no pulmonic regurgitation present. The aortic root size is normal. Normal inferior vena cava with normal inspiratory collapse consistent with estimated right atrial pre ssure of 5 mmHg. The inferior vena cava is mildly dilated. There is no pericardial effusion. CONCLUSIONS -------- 1. Sinus rhythm. 2. This was a technically good study. 3. The left ventricular size is normal. 4. Left ventricular wall thickness is normal. 5. Overall left ventricular systolic function is normal with, an EF between 55 - 60 %. 6. Normal LA size by volume 22+/-6 ml/m2. 7. The aortic valve is trileaflet, and appears structurally normal. No aortic stenosis or regurgitati on. 8. There is trace mitral regurgitation. 9. The tricuspid valve appears structurally normal. 10. There is no pulmonic regurgitation present. 11. The aortic root size is normal. 12. Normal inferior vena cava with normal inspiratory collapse consistent with estimated right atrial pressure of 5 mmHg. 13. The inferior vena cava is mildly dilated. 14. There is no pericardial effusion. RETAIL FIELD REPRESENTATIVE: Elizabeth Reveles RDCS
[2018-10-23] MEDS: ASPIRIN 325 MG TAB PO SCH (12:37)
[2018-10-23] MEDS: SODIUM CHLORIDE 0.9% 1,000 ML IV SCH (13:23)
--- NOTE | 2018-10-23 19:15 | MR ---
EXAMINATION TYPE: MR brain wo con DATE OF EXAM: 10/23/2018 COMPARISON: None HISTORY: Lt facial numbness, TIA Standard multiplanar, multisequence MRI departmental protocol Multiplanar, multisequence images of the brain were acquired. Diffusion weighted imaging was performe d. FINDINGS: Ventricles of normal size. There is no mass effect nor midline shift. There is no sign of i ntracranial hemorrhage. Fuentes-white matter structures have fairly normal signal pattern. There are a f ew small scattered foci of increased signal at the fuentes-white matter junction of both cerebral hemisp heres on the FLAIR images. Largest measures 5 mm in the right parietal lobe. Total number is 5. There is 1.5 cm mucous retention cyst left maxillary sinus. Brainstem is intact. Corpus callosum is intact. IMPRESSION: There are a few Scattered small white matter high signal foci are probably of no clinical significanc e. Otherwise negative exam.
--- NOTE | 2018-10-23 20:42 | PN ---
PROGRESS NOTE DATE OF SERVICE: 10/23/2018 This 38-year-old woman who was admitted with numbness and weakness of the left side of the body, possibly acute TIA, is being closely monitored. Patient has some weakness of the leg also. A 2D echo with Doppler showed ejection fraction 55% to 60%. MRI of the brain shows a few scattered white matter changes. No chest pain. No palpitations. No fever. PHYSICAL EXAMINATION: Alert and oriented x3. Pulse 75, blood pressure 120/69, respiration 18, temperature 97.8, pulse ox 99% on room air. HEENT: Conjunctivae normal. NECK: No jugular venous distention. CARDIOVASCULAR SYSTEM: S1, S2 muffled. RESPIRATORY SYSTEM: Breath sounds diminished at the bases. No rhonchi. No crackles. ABDOMEN: Soft, non-tender. LEGS: No edema. No swelling. NERVOUS SYSTEM: No focal deficit. Minimal weakness of the left leg present. LABS: CBC, BMP noted. Lipid panel is also normal. ASSESSMENT: 1. Numbness on the left side of the body; possible acute transient ischemic attack. 2. History of narcolepsy. 3. History of urinary tract infection. 4. Bilateral inguinal hernia repair. 5. History of bipolar, depression. 6. History of continued ongoing nicotine dependence. RECOMMENDATIONS AND DISCUSSION: I recommend to continue current management, continue symptomatic treatment. Continue with antiplatelet agents. Closely follow with Neurology. Increase ambulation. Guarded prognosis. Further recommendations to follow. MMODL / IJN: [id number] /
[2018-10-23] MEDS: LITHIUM CARBONATE 300 MG CAP PO SCH (21:33)
[2018-10-24] MEDS: NICOTINE 14MG/24HR PATCH TRANSDERM SCH (08:14)
[2018-10-24] MEDS: CLOPIDOGREL 75 MG TAB PO SCH (08:14)
[2018-10-24] MEDS: ASPIRIN 325 MG TAB PO SCH (08:15)
[2018-10-24] MEDS: HEPARIN SODIUM,PORCINE 5,000 UNIT/ML 1 ML VIAL SQ SCH ×2 (08:15→19:59)
[2018-10-24] MEDS: PANTOPRAZOLE 40 MG TABLET PO SCH (08:15)
[2018-10-24] MEDS: ACETAMINOPHEN TAB 500 MG TAB PO PRN ×2 (08:15→15:24)
--- NOTE | 2018-10-24 11:01 | P.PN ---
Subjective This is a pleasant 38 years old female with past medical history of narcolepsy, UTI, bipolar disorder, who follow up with his psychiatrist as an outpatient. Presents with left sided weakness and numbness. Patient has been evaluated by neurologist and workup of brain MRI, echocardiogram and carotid blocks having been revealing for a cause. EEG is still pending. Neurology team are following the patient. Physical on the Patient therapist evaluated the patient and they recommended home with no therapy. 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 Patient agrees to see a psychiatrist while inpatient she is currently on lithium. As well as Plavix and aspirin. Patient states that she gets panic attacks at times, she missed her appointment last week with a psychiatrist and rescheduled her appointment for tomorrow for a later date, she is in the hospital. Objective - Vital Signs Vital signs: Vital Signs Temp 98 F 10/24/18 04:00 Pulse 60 10/24/18 07:44 Resp 18 10/24/18 07:44 BP 124/63 10/24/18 07:44 Pulse Ox 100 10/24/18 07:44 Intake & Output 10/23/18 10/24/18 10/24/18 18:59 06:59 18:59 Intake Total 702 10 360 Output Total 900 Balance -198 10 360 Weight 61.5 kg 61.1 kg Intake: IV 10 0.9 10 Oral 702 360 Output: Urine 900 Other: Voiding Method Toilet # Voids 1 - Exam GENERAL: The patient is alert and oriented x3, not in any acute distress. Well developed, well nourished. HEENT: Pupils are round and equally reacting to light. EOMI. No scleral icterus. No conjunctival pallor. Normocephalic, atraumatic. No pharyngeal erythema. No thyromegaly. CARDIOVASCULAR: S1 and S2 present. No murmurs, rubs, or gallops. PULMONARY: Chest is clear to auscultation, no wheezing or crackles. ABDOMEN: Soft, nontender, nondistended, normoactive bowel sounds. No palpable organomegaly. MUSCULOSKELETAL: No joint swelling or deformity. EXTREMITIES: No cyanosis, clubbing, or pedal edema. NEUROLOGICAL: Gross neurological examination did not reveal any focal deficits. Mild weakness in the left upper extremity, more weakness in the left lower extremity. Patient reports numbness in the left upper extremity from the elbow down to the fingers and in the left SKIN: No rashes. - Labs CBC & Chem 7: 10/23/18 06:02 10/23/18 06:02 Assessment and Plan Assessment: Numbness and weakness of the left side of the body, possible TIA versus others History of narcolepsy History of bipolar disorder Plan: This is a pleasant 38 years old female who presents because of left-sided numbness and weakness. Patient has been evaluated by neurology and workup of MRI of the brain, carotid duplex and echo were unrevealing.Labs and medication were reviewed.. Continue same treatment. Continue with symptomatic treatment. Resume home medication. Monitor lytes and vitals. DVT and GI prophylaxis. Further recommendations of the clinical course of the patient DVT prophylaxis: Subcutaneous heparin GI Prophylaxis: Protonix PT/OT: home Prognosis is guarded
[2018-10-24] MEDS: SODIUM CHLORIDE 0.9% 1,000 ML IV SCH (11:40)
[2018-10-24] MEDS: LITHIUM CARBONATE 300 MG CAP PO SCH (20:00)
[2018-10-25] MEDS: PANTOPRAZOLE 40 MG TABLET PO SCH (05:55)
[2018-10-25] MEDS: ASPIRIN 325 MG TAB PO SCH (09:41)
[2018-10-25] MEDS: NICOTINE 14MG/24HR PATCH TRANSDERM SCH (09:41)
[2018-10-25] MEDS: CLOPIDOGREL 75 MG TAB PO SCH (09:41)
[2018-10-25] MEDS: HEPARIN SODIUM,PORCINE 5,000 UNIT/ML 1 ML VIAL SQ SCH ×2 (09:42→19:48)
--- NOTE | 2018-10-25 11:46 | MR ---
EXAMINATION TYPE: MR cervical spine wo con DATE OF EXAM: 10/25/2018 COMPARISON: None HISTORY: Left-sided numbness TECHNIQUE: Multiplanar, multisequence images of the cervical spine were acquired. C2-C3: No evidence for degenerative disc disease. No disc bulge/herniation or protrusion. No Canal stenosis. Foramina are patent bilaterally. C3-C4: No evidence for degenerative disc disease. No disc bulge/herniation or protrusion. No Canal stenosis. Foramina are patent bilaterally. C4-C5: Mild hypertrophic changes present at the foramina. No evident disc herniation or central steno sis. C5-C6: Lateral extension of endplate disc complex results in some mild foraminal encroachment bilater ally. There is a posterior broad-based disc bulge causes minimal anterior mass effect on the thecal s ac. No significant central stenosis. C6-C7: No evidence for degenerative disc disease. No disc bulge/herniation or protrusion. No Canal stenosis. Minimal left-sided foraminal encroachment.. C7-T1: No evidence for degenerative disc disease. No disc bulge/herniation or protrusion. No Canal stenosis. Foramina are patent bilaterally. Cervical segments are intact. There is normal alignment. Cervical spinal cord is remarkable for a p rominent central canal or possibly small syrinx measuring only 1 mm at the level of the C4-5 through C7-T1 level. Craniovertebral junction relationships are within normal limits. Cervical vertebral bodi es show preserved height and alignment. Spondylosis is present especially at C5-6, C6-7, C4-5, there is associated loss of disc height signal greatest at C5-6. Some minimal endplate discogenic marrow si gnal changes. IMPRESSION: Mild degenerative disc disease, small syrinx suspected, contrast-enhanced exam may be of benefit.
[2018-10-25] MEDS: SODIUM CHLORIDE 0.9% 1,000 ML IV SCH (14:10)
--- NOTE | 2018-10-25 18:39 | MR ---
EXAMINATION TYPE: MR cervical spine w con DATE OF EXAM: 10/25/2018 COMPARISON: Prior cervical spine MRI same date earlier time. HISTORY: MRI cervical contrast only, left-sided numbness, possible syrinx seen on MRI cervical w/o TECHNIQUE: Postcontrast images obtained through the cervical spine FINDINGS: No abnormal enhancement following contrast administration. Previously identified central ca nal T2 hyperintensities compatible with prominent aqueduct. No evident enhancing mass. IMPRESSION: Prominence of the central aqueduct.
--- NOTE | 2018-10-25 19:36 | P.PN ---
Subjective This is a pleasant 38 years old female with past medical history of narcolepsy, UTI, bipolar disorder, who follow up with his psychiatrist as an outpatient. Presents with left sided weakness and numbness. Patient has been evaluated by neurologist and workup of brain MRI, echocardiogram and carotid blocks having been revealing for a cause. EEG is still pending. Neurology team are following the patient. Physical on the Patient therapist evaluated the patient and they recommended home with no therapy. 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 Patient agrees to see a psychiatrist while inpatient she is currently on lithium. As well as Plavix and aspirin. Patient states that she gets panic attacks at times, she missed her appointment last week with a psychiatrist and rescheduled her appointment for tomorrow for a later date, she is in the hospital. 10/25/2018 Patient was sitting in chair, still complaining from her weakness and numbness in her feet on the left side, when she stood up she could walk without difficulty. Physical therapy already evaluated her they recommended home and the patient will therapy they recommended 24-hour supervision. Patient is informed. We going to ask for physical therapy reevaluation. Patient with history of depression but she didn't denies suicidal ideation or homicidal ideation.: Psych consult area patient told me she follow up with his psychiatrist Dr. Childs at [facility] with home she has an appointment on 11/14/2018. EEG and MRI of the cervical spine without contrast all pending. Objective - Vital Signs Vital signs: Vital Signs Temp 97.7 F 10/25/18 04:00 Pulse 73 10/25/18 04:00 Resp 18 10/25/18 04:00 BP 132/63 10/25/18 04:00 Pulse Ox 99 10/25/18 04:00 Intake & Output 10/24/18 10/25/18 10/25/18 18:59 06:59 18:59 Intake Total 814 250 118 Balance 814 250 118 Weight 57.9 kg Intake: IV 10 10 0.9 10 10 Oral 804 240 118 Other: Voiding Method Toilet # Voids 2 - Exam GENERAL: The patient is alert and oriented x3, not in any acute distress. Well developed, well nourished. HEENT: Pupils are round and equally reacting to light. EOMI. No scleral icterus. No conjunctival pallor. Normocephalic, atraumatic. No pharyngeal erythema. No thyromegaly. CARDIOVASCULAR: S1 and S2 present. No murmurs, rubs, or gallops. PULMONARY: Chest is clear to auscultation, no wheezing or crackles. ABDOMEN: Soft, nontender, nondistended, normoactive bowel sounds. No palpable organomegaly. MUSCULOSKELETAL: No joint swelling or deformity. EXTREMITIES: No cyanosis, clubbing, or pedal edema. NEUROLOGICAL: Gross neurological examination did not reveal any focal deficits. Mild weakness in the left upper extremity, more weakness in the left lower extremity. Patient reports numbness in the left upper extremity from the elbow down to the fingers and in the left SKIN: No rashes. - Labs CBC & Chem 7: 10/23/18 06:02 10/23/18 06:02 Assessment and Plan Assessment: Numbness and weakness of the left side of the body, possible TIA versus others History of narcolepsy History of bipolar disorder Plan: This is a pleasant 38 years old female who presents because of left-sided numbness and weakness. Patient has been evaluated by neurology and workup of MRI of the brain, carotid duplex and echo were unrevealing.Labs and medication were reviewed.. Continue same treatment. Continue with symptomatic treatment. Resume home medication. Monitor lytes and vitals. DVT and GI prophylaxis. Further recommendations of the clinical course of the patient DVT prophylaxis: Subcutaneous heparin GI Prophylaxis: Protonix PT/OT: home Prognosis is guarded
[2018-10-25] MEDS: LITHIUM CARBONATE 300 MG CAP PO SCH (19:48)
[2018-10-26] MEDS: PANTOPRAZOLE 40 MG TABLET PO SCH (06:03)
[2018-10-26] MEDS: NICOTINE 14MG/24HR PATCH TRANSDERM SCH (08:20)
[2018-10-26] MEDS: HEPARIN SODIUM,PORCINE 5,000 UNIT/ML 1 ML VIAL SQ SCH ×2 (08:20→20:25)
[2018-10-26] MEDS: CLOPIDOGREL 75 MG TAB PO SCH (08:20)
[2018-10-26] MEDS: ASPIRIN 325 MG TAB PO SCH (08:20)
[2018-10-26] MEDS: SODIUM CHLORIDE 0.9% 1,000 ML IV SCH (08:21)
[2018-10-26 11:18] VITALS: BMI 24.1
--- NOTE | 2018-10-26 13:06 | P.CONS ---
History of Present Illness - Chief Complaint Gait disturbance - History of Present Illness I had the opportunity to see patient for inpatient consultation with regard to gait disturbance. She was admitted to [facility] October 22 with left facial numbness. Also found to have left arm and leg numbness and weakness. Seen in consultation by Dr. Grimaldo for stroke. Head CT and chest x-ray negative. Carotid Doppler was 0% stenosis. Brain MRI with scattered white matter change. C-spine MRI with hypertrophy at C5 and disc complex at C6 with bilateral encroachment. PT reports supervision for bed mobility and minimal assistance for transfers and gait 100 feet, fatigues. OT reports supervision for upper dressing and minimal assist for lower dressing, bathing, toileting and transfers. Previous functional history as elicited from patient: 38-year-old right-handed white female who is and lives in 2 floor home with 3 kids ages 9-20. 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 Describes independent with cooking, laundry, shower. Doesn't own a car. 20-year-old son does own a car drives. Patient was a pack a day smoker but has quit. Denies a car. Dr. Jaimes is regular doctor. Family history of mother with cancer. Review of Systems Review of systems: ENT: Denies sneezes or discharge. Eyes: Denies discharge or photophobia. Cardiac: Denies chest pain or palpitation. Pulmonary: Denies cough or shortness of breath. Breast: Denies discharge or lumps. Gastrointestinal: Denies nausea, emesis, constipation, diarrhea. Genitourinary: Denies discharge or frequency. Musculoskeletal: Denies muscle or bone aches. Neurologic: Numbness and weakness left face, arm, leg. Endocrine: Denies shakes or sweats. Oncology: Denies cancers. Dermatologic: Denies rash, itching, pruritus. ALLERGY/immunology: Denies sneezes, rashes. 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 Additional Past Medical History / Comment(s): Narcolepsy, UTI History of Any Multi-Drug Resistant Organisms: None Reported Past Surgical History: Hernia Repair Additional Past Surgical History / Comment(s): Bilateral inguinal hernia repairs Past Anesthesia/Blood Transfusion Reactions: No Reported Reaction Smoking Status: Current every day smoker - Past Family History Mother Family Medical History: Cancer Additional Family Medical History / Comment(s): Mother of lung cancer with history of smoking. Father Additional Family Medical History / Comment(s): Father from suicide. He had history of alcoholism and drug abuse. Sister(s) Additional Family Medical History / Comment(s): She has one sister with no major medical problems. Brother(s) Additional Family Medical History / Comment(s): She has 2 half brothers with no major medical problems. Daughter(s) Additional Family Medical History / Comment(s): She has 4 children. One daughter at 20, son 17, son 15, son 9. Youngest has autism. Medications and Allergies Home Medications Medication Instructions Recorded Confirmed Type Dextroamphetamine/Amphetamine 20 mg PO BID 02/02/17 10/22/18 History [Adderall] Mabel Carbonate 600 mg PO HS 02/02/17 10/22/18 History Acetaminophen Tab [Tylenol] 500 mg PO Q6HR PRN tab 10/23/18 Rx Clopidogrel [Plavix] 75 mg PO DAILY #30 tab 10/23/18 Rx Nicotine 14Mg/24Hr Patch [Habitrol] 1 patch TRANSDERM DAILY #30 patch 10/23/18 Rx Pantoprazole [Protonix] 40 mg PO AC-BRKFST #30 tablet. 10/23/18 Rx Allergies Allergy/AdvReac Type Severity Reaction Status Date / Time cephalexin monohydrate Allergy Mild Dyspnea Verified 10/22/18 09:49 [From Keflex] Physical Exam Vitals: Vital Signs Temp Pulse Resp BP Pulse Ox 10/26/18 12:00 98.2 F 80 18 116/68 98 10/26/18 08:00 98.2 F 82 18 114/74 99 10/26/18 04:00 97.8 F 80 18 132/80 98 10/26/18 00:00 82 18 124/65 98 10/25/18 20:00 98 F 79 18 137/85 99 10/25/18 16:00 98.0 F 72 18 116/68 99 Intake and Output 10/25/18 10/26/18 10/26/18 22:59 06:59 14:59 Intake Total 1060 10 260 Balance 1060 10 260 Intake: IV 10 20 0.9 10 Invasive Line 1 20 Oral 1060 240 Other: Voiding Method Toilet Toilet Toilet # Voids 1 Weight 61.8 kg 61.8 kg Skin: Good color, texture, turgor. General: Medium build and comfortable appearance. Head: Normocephalic, atraumatic. Eyes: Symmetric. Pupils equal round. Ears: Symmetric. Hearing within normal limits. Mouth: Clear. Neck: Supple. Carotid without bruit. Cardiac: Regular rate and rhythm. Lungs: Clear anteriorly and posteriorly. Abdomen: Soft active nontender. Extremities: Normal tone. Neurological: Mental status: Alert, cooperative, pleasant. Cranial nerves: Symmetric facial tone and trapezius. Left facial numbness. Motor: Active movement throughout but definite weakness of it best 4/5 left hand and 3+/5 left ankle. Sensation: Intact throughout. DTRs: Symmetric and equal throughout. Mobility: Sits and stands with assistance. Results CBC & Chem 7: 10/23/18 06:02 10/23/18 06:02 Assessment and Plan (1) Cerebrovascular accident Current Visit: Yes Status: Acute Code(s): I63.9 - CEREBRAL INFARCTION, UNSPECIFIED SNOMED Code(s): 407422287 Plan: Impression: 1. Gait disturbance. 2. Right cerebral stroke result in left hemiparesthesias. Comments and plan: At this time discussed with patient and ex- the patient in fact appears to me to have had a stroke and lifting pierces, as this is now day 4. Patient and ex- did do agree with this point. At this time, discussed possible need and benefit of inpatient rehab. Reevaluate Monday a.m.
--- NOTE | 2018-10-26 13:52 | P.PN ---
Subjective This is a pleasant 38 years old female with past medical history of narcolepsy, UTI, bipolar disorder, who follow up with his psychiatrist as an outpatient. Presents with left sided weakness and numbness. Patient has been evaluated by neurologist and workup of brain MRI, echocardiogram and carotid blocks having been revealing for a cause. EEG is still pending. Neurology team are following the patient. Physical on the Patient therapist evaluated the patient and they recommended home with no therapy. 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 Patient agrees to see a psychiatrist while inpatient she is currently on lithium. As well as Plavix and aspirin. Patient states that she gets panic attacks at times, she missed her appointment last week with a psychiatrist and rescheduled her appointment for tomorrow for a later date, she is in the hospital. 10/25/2018 Patient was sitting in chair, still complaining from her weakness and numbness in her feet on the left side, when she stood up she could walk without difficulty. Physical therapy already evaluated her they recommended home and the patient will therapy they recommended 24-hour supervision. Patient is informed. We going to ask for physical therapy reevaluation. Patient with history of depression but she didn't denies suicidal ideation or homicidal ideation.: Psych consult area patient told me she follow up with his psychiatrist Dr. Childs at [facility] [address] with home she has an appointment on 11/14/2018. EEG and MRI of the cervical spine without contrast all pending. 10/26/2018 Patient still with left side weakness and numbness, similar to yesterday with no improvement or worsening. No new complaint. No chest pain or dyspnea. Patient have cervical MRI showing small syrinx suspected on the level of C4 to 5 through C7 to T1. EKG: Pending. Neurology following the case. Cici evaluated the patient and recommended inpatient rehab for her. Patient continue with aspirin and Plavix. Psychiatrist to see the patient. She is currently on lithium and actually today she was telling the staff she was not taken lithium before coming to the hospital. Objective - Vital Signs Vital signs: Vital Signs Temp 98.2 F 10/26/18 12:00 Pulse 80 10/26/18 12:00 Resp 18 10/26/18 12:00 BP 116/68 10/26/18 12:00 Pulse Ox 98 10/26/18 12:00 Intake & Output 10/25/18 10/26/18 10/26/18 18:59 06:59 18:59 Intake Total 1198 250 482 Balance 1198 250 482 Weight 61.8 kg 61.8 kg Intake: IV 10 20 0.9 10 Invasive Line 1 20 Oral 1198 240 462 Other: Voiding Method Toilet Toilet Toilet # Voids 3 1 - Exam GENERAL: The patient is alert and oriented x3, not in any acute distress. Well developed, well nourished. HEENT: Pupils are round and equally reacting to light. EOMI. No scleral icterus. No conjunctival pallor. Normocephalic, atraumatic. No pharyngeal erythema. No thyromegaly. CARDIOVASCULAR: S1 and S2 present. No murmurs, rubs, or gallops. PULMONARY: Chest is clear to auscultation, no wheezing or crackles. ABDOMEN: Soft, nontender, nondistended, normoactive bowel sounds. No palpable organomegaly. MUSCULOSKELETAL: No joint swelling or deformity. EXTREMITIES: No cyanosis, clubbing, or pedal edema. NEUROLOGICAL: Gross neurological examination did not reveal any focal deficits. Mild weakness in the left upper extremity, more weakness in the left lower extremity. Patient reports numbness in the left upper extremity from the elbow down to the fingers and in the left SKIN: No rashes. - Labs CBC & Chem 7: 10/23/18 06:02 10/23/18 06:02 Assessment and Plan Assessment: Numbness and weakness of the left side of the body, possible TIA versus others Left sided weakness and numbness. History of narcolepsy History of bipolar disorder Plan: This is a pleasant 38 years old female who presents because of left-sided numbness and weakness. Patient has been evaluated by neurology and workup of MRI of the brain, carotid duplex and echo were unrevealing.Labs and medication were reviewed. Physical therapy consult is appreciated with Dr. Ledezma. Continue same treatment. Continue with symptomatic treatment. Resume home medication. Monitor lytes and vitals. DVT and GI prophylaxis. Further recommendations of the clinical course of the patient DVT prophylaxis: Subcutaneous heparin GI Prophylaxis: Protonix PT/OT: home Prognosis is guarded
--- NOTE | 2018-10-26 17:36 | EEG ---
ELECTROENCEPHALOGRAM REPORT DATE OF EE10/23/2018 ELECTROENCEPHALOGRAPHIC EXAMINATION REPORT: INDICATION FOR EXAMINATION: This patient is a 38-year-old female being evaluated for acute left-sided weakness. Patient has history of bipolar disorder and narcolepsy. AGE: [age]. EEG FINDINGS: A routine 21-channel awake digital EEG recording was accomplished utilizing the 10-20 international system with bipolar and referential montages. The background activity in the most alert resting state consists of a low to medium amplitude, fairly well developed and well sustained 8-9 Hz activity over the posterior head regions. This posterior rhythm attenuates to eye opening. There is a small amount of low amplitude 18-20 Hz beta activity seen maximally over the anterior head regions. Muscle and movement artifact was observed on several occasions during the tracing. Hyperventilation was not performed. Photic stimulation at flash frequencies of 2-30 Hz produced a good symmetrical occipital driving response. No epileptiform discharges were seen. IMPRESSION: This EEG is within normal limits for the patient's age. The EEG failed to reveal any focal, lateralized, or epileptiform abnormalities. Clinical correlation is recommended. MMODL / IJN: [id number] /
--- NOTE | 2018-10-26 18:49 | P.PN ---
Subjective Progress Note Date: 10/26/18 The patient is a 38-year-old woman who presented to the hospital with left lip hand and leg numbness. It primarily involves the lips and arm on admission which is now resolved but her left leg is numb to the point where she has difficulty walking on it. Is no weakness or pain. She had an MRI of the brain which showed nonspecific changes. She had an MRI of the cervical spine which did not show any acute abnormality. She had a carotid ultrasound and echocardiogram which was unremarkable. She had an EEG which was normal. The patient's main complaint is not being able to stand or bear weight on her leg even though she has the strength in the leg. Objective - Vital Signs Vital signs: Vital Signs Temp 98.0 F 10/26/18 16:00 Pulse 60 10/26/18 16:00 Resp 18 10/26/18 16:00 BP 112/62 10/26/18 16:00 Pulse Ox 98 10/26/18 16:00 Intake & Output 10/25/18 10/26/18 10/26/18 18:59 06:59 18:59 Intake Total 1198 250 732 Output Total 900 Balance 1198 250 -168 Weight 61.8 kg 61.8 kg Intake: IV 10 30 0.9 10 Invasive Line 1 30 Oral 1198 240 702 Output: Urine 900 Other: Voiding Method Toilet Toilet Toilet # Voids 3 1 - Constitutional General appearance: Present: average body habitus - Respiratory Respiratory: bilateral: CTA - Cardiovascular Rhythm: regular - Neurologic Neurologic Comment(s): Neurologic examination: Mental status: She was awake alert and oriented 3. Her speech was fluent. There was no a aphasia or dysarthria. Cranial nerve examination: Cranial nerves II through XII grossly intact next Motor examination: 5 out of 5 throughout Sensory examination: Decreased temperature sensation lateral aspect of left leg decreased light touch lateral aspect of left leg Coordination finger to nose intact next Deep tendon reflexes 2+ and symmetric next Gait unable to bear weight on the left leg since experiencing numbness in the bottom of her left foot - Labs CBC & Chem 7: 10/23/18 06:02 10/23/18 06:02 Assessment and Plan (1) Left sided numbness Current Visit: Yes Status: Acute SNOMED Code(s): 45567690 (2) Depression Current Visit: No Status: Acute SNOMED Code(s): 51847665 Plan: The patient is a 38-year-old woman who presented to the hospital with left lip left hand and numbness and tingling now presents with primarily left foot numbness to the point where she finds it difficult to walk. There is no weakness detected. Her deep tendon reflexes are symmetric. There is no evidence of stroke. Her MRI of the cervical spine was unremarkable. Further other investigation with spinal tap will be done to rule out demyelinating disease. CIDP is unlikely given the unilateral symptoms and presence and preservation of deep tendon reflexes.
[2018-10-26] MEDS: LITHIUM CARBONATE 300 MG CAP PO SCH (20:25)
[2018-10-26] MEDS: ACETAMINOPHEN TAB 500 MG TAB PO PRN (21:50)
[2018-10-26 22:55] LABS: Basophils # (A) 0.1 k/uL (0-0.2); Basophils % (A) 0 %; Eosinophils # (A) 0.3 k/uL (0-0.7); Eosinophils % (A) 3 %; HGB 14.9 gm/dL (11.4-16.0); Lymphocytes # (A) 3.8 k/uL (1.0-4.8); Lymphocytes % (A) 33 %; MCH 30.5 pg (25.0-35.0); MCHC 33.8 g/dL (31.0-37.0); MCV 90.3 fL (80.0-100.0); Mean Platelet Volume 8.1; Monocytes # (A) 0.6 k/uL (0-1.0); Monocytes % (A) 5 %; Neutrophils # (A) 6.8 k/uL (1.3-7.7); Neutrophils % (A) 57 %; Platelet Count 215 k/uL (150-450); RBC 4.88 m/uL (3.80-5.40); RDW 11.9 % (11.5-15.5); WBC 11.8 k/uL (3.8-10.6)
[2018-10-26 23:00] LABS: Anion Gap 7 mmol/L; Blood Urea Nitrogen 24 mg/dL (7-17); Calcium 9.9 mg/dL (8.4-10.2); Carbon Dioxide 26 mmol/L (22-30); Chloride 103 mmol/L (98-107); Glucose 113 mg/dL (74-99); Potassium 4.4 mmol/L (3.5-5.1); Sodium 136 mmol/L (137-145)
[2018-10-27] MEDS: PANTOPRAZOLE 40 MG TABLET PO SCH (06:10)
[2018-10-27] MEDS: ACETAMINOPHEN TAB 500 MG TAB PO PRN ×2 (06:12→16:05)
[2018-10-27] MEDS: HEPARIN SODIUM,PORCINE 5,000 UNIT/ML 1 ML VIAL SQ SCH (09:17)
[2018-10-27] MEDS: NICOTINE 14MG/24HR PATCH TRANSDERM SCH (09:18)
--- NOTE | 2018-10-27 10:14 | P.PN ---
Subjective This is a pleasant 38 years old female with past medical history of narcolepsy, UTI, bipolar disorder, who follow up with his psychiatrist as an outpatient. Presents with left sided weakness and numbness. Patient has been evaluated by neurologist and workup of brain MRI, echocardiogram and carotid blocks having been revealing for a cause. EEG is still pending. Neurology team are following the patient. Physical on the Patient therapist evaluated the patient and they recommended home with no therapy. 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 Patient agrees to see a psychiatrist while inpatient she is currently on lithium. As well as Plavix and aspirin. Patient states that she gets panic attacks at times, she missed her appointment last week with a psychiatrist and rescheduled her appointment for tomorrow for a later date, she is in the hospital. 10/25/2018 Patient was sitting in chair, still complaining from her weakness and numbness in her feet on the left side, when she stood up she could walk without difficulty. Physical therapy already evaluated her they recommended home and the patient will therapy they recommended 24-hour supervision. Patient is informed. We going to ask for physical therapy reevaluation. Patient with history of depression but she didn't denies suicidal ideation or homicidal ideation.: Psych consult area patient told me she follow up with his psychiatrist Dr. Childs at [facility] with home she has an appointment on 11/14/2018. EEG and MRI of the cervical spine without contrast all pending. 10/26/2018 Patient still with left side weakness and numbness, similar to yesterday with no improvement or worsening. No new complaint. No chest pain or dyspnea. Patient have cervical MRI showing small syrinx suspected on the level of C4 to 5 through C7 to T1. EKG: Pending. Neurology following the case. Cici evaluated the patient and recommended inpatient rehab for her. Patient continue with aspirin and Plavix. Psychiatrist to see the patient. She is currently on lithium and actually today she was telling the staff she was not taken lithium before coming to the hospital. 10/27/2018 Patients with weakness and numbness in her left side. Neurologist following the patient. Workup so far was nonrevealing for causes that can explain patient 's symptoms. Spinal tap has been recommended by neurologist. We will hold heparin and she is also on aspirin and Plavix will discuss it with the team for the planned LP, prior to the spinal tap. Patient also complained from generalized weakness and some suprapubic discomfort and difficulty in P 18. We will order an urinalysis and bladder scan. Objective - Vital Signs Vital signs: Vital Signs Temp 97.8 F 10/27/18 04:00 Pulse 70 10/27/18 04:00 Resp 18 10/27/18 04:00 BP 107/61 10/27/18 04:00 Pulse Ox 97 10/27/18 04:00 Intake & Output 10/26/18 10/27/18 10/27/18 18:59 06:59 18:59 Intake Total 732 250 Output Total 900 Balance -168 250 Weight 61.8 kg 61.3 kg Intake: IV 30 10 Invasive Line 1 30 Invasive Line 2 10 Oral 702 240 Output: Urine 900 Other: Voiding Method Toilet Toilet # Voids 1 1 - Exam GENERAL: The patient is alert and oriented x3, not in any acute distress. Well developed, well nourished. HEENT: Pupils are round and equally reacting to light. EOMI. No scleral icterus. No conjunctival pallor. Normocephalic, atraumatic. No pharyngeal erythema. No thyromegaly. CARDIOVASCULAR: S1 and S2 present. No murmurs, rubs, or gallops. PULMONARY: Chest is clear to auscultation, no wheezing or crackles. ABDOMEN: Soft, nontender, nondistended, normoactive bowel sounds. No palpable organomegaly. MUSCULOSKELETAL: No joint swelling or deformity. EXTREMITIES: No cyanosis, clubbing, or pedal edema. NEUROLOGICAL: Gross neurological examination did not reveal any focal deficits. Mild weakness in the left upper extremity, more weakness in the left lower extremity. Patient reports numbness in the left upper extremity from the elbow down to the fingers and in the left SKIN: No rashes. - Labs CBC & Chem 7: 10/26/18 22:30 10/26/18 22:30 Labs: Abnormal Lab Results - Last 24 Hours (Table) 10/26/18 10/26/18 Range/Units 22:30 22:30 WBC 11.8 H (3.8-10.6) k/uL Sodium 136 L (137-145) mmol/L BUN 24 H (7-17) mg/dL Glucose 113 H (74-99) mg/dL Assessment and Plan Assessment: Numbness and weakness of the left side of the body, possible TIA versus others Left sided weakness and numbness. History of narcolepsy History of bipolar disorder Plan: This is a pleasant 38 years old female who presents because of left-sided numbness and weakness. Patient has been evaluated by neurology and workup of MRI of the brain, carotid duplex and echo were unrevealing.Labs and medication were reviewed. Physical therapy consult is appreciated with Dr. Ledezma. Continue same treatment. Continue with symptomatic treatment. Resume home medication. Monitor lytes and vitals. DVT and GI prophylaxis. Further recommendations of the clinical course of the patient DVT prophylaxis: Subcutaneous heparin GI Prophylaxis: Protonix PT/OT: home Prognosis is guarded
[2018-10-27] MEDS: ASPIRIN 325 MG TAB PO SCH (11:59)
[2018-10-27] MEDS: SODIUM CHLORIDE 0.9% 1,000 ML IV SCH (11:59)
[2018-10-27] MEDS: CLOPIDOGREL 75 MG TAB PO SCH (12:07)
[2018-10-27 12:22] LABS: Appearance,Urine Clear (Clear); Bilirubin,Urine Negative (Negative); Blood,Urine Trace (Negative); Color,Urine Light Yellow; Glucose,Urine (UA) Negative (Negative); Ketones,Urine Negative (Negative); Leukocyte Esterase,Urine Trace (Negative); Nitrite,Urine Negative (Negative); Protein,Urine Negative (Negative); RBC,Urine 4 /hpf (0-5); Specific Gravity,Urine 1.011 (1.001-1.035); Squamous Epithelial Cell,Urine 2 /hpf (0-4); Urobilinogen,Urine <2.0 mg/dL (<2.0)
[2018-10-27] MEDS: LITHIUM CARBONATE 300 MG CAP PO SCH (19:53)
[2018-10-27] MEDS: ONDANSETRON 4 MG/2 ML VIAL IVP PRN (22:16)
[2018-10-28] MEDS: PANTOPRAZOLE 40 MG TABLET PO SCH (05:53)
[2018-10-28 06:17] LABS: Basophils # (A) 0.1 k/uL (0-0.2); Basophils % (A) 1 %; Eosinophils # (A) 0.4 k/uL (0-0.7); Eosinophils % (A) 3 %; HCT 47.3 % (34.0-46.0); HGB 14.8 gm/dL (11.4-16.0); Lymphocytes # (A) 2.5 k/uL (1.0-4.8); Lymphocytes % (A) 21 %; MCH 28.9 pg (25.0-35.0); MCHC 31.4 g/dL (31.0-37.0); MCV 92.1 fL (80.0-100.0); Mean Platelet Volume 7.7; Monocytes # (A) 0.7 k/uL (0-1.0); Monocytes % (A) 6 %; Neutrophils # (A) 8.1 k/uL (1.3-7.7); Neutrophils % (A) 67 %; Platelet Count 241 k/uL (150-450); RBC 5.14 m/uL (3.80-5.40); RDW 11.9 % (11.5-15.5)
[2018-10-28 06:32] LABS: Calcium 10.3 mg/dL (8.4-10.2); Potassium 5.5 mmol/L (3.5-5.1)
[2018-10-28] MEDS: NICOTINE 14MG/24HR PATCH TRANSDERM SCH (09:11)
[2018-10-28] MEDS ORDERED: SODIUM POLYSTYRENE SULFONATE 15 GM/60 ML BOTTLE PO STA (12:24)
--- NOTE | 2018-10-28 12:25 | P.PN ---
Subjective This is a pleasant 38 years old female with past medical history of narcolepsy, UTI, bipolar disorder, who follow up with his psychiatrist as an outpatient. Presents with left sided weakness and numbness. Patient has been evaluated by neurologist and workup of brain MRI, echocardiogram and carotid blocks having been revealing for a cause. EEG is still pending. Neurology team are following the patient. Physical on the Patient therapist evaluated the patient and they recommended home with no therapy. 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 Patient agrees to see a psychiatrist while inpatient she is currently on lithium. As well as Plavix and aspirin. Patient states that she gets panic attacks at times, she missed her appointment last week with a psychiatrist and rescheduled her appointment for tomorrow for a later date, she is in the hospital. 10/25/2018 Patient was sitting in chair, still complaining from her weakness and numbness in her feet on the left side, when she stood up she could walk without difficulty. Physical therapy already evaluated her they recommended home and the patient will therapy they recommended 24-hour supervision. Patient is informed. We going to ask for physical therapy reevaluation. Patient with history of depression but she didn't denies suicidal ideation or homicidal ideation.: Psych consult area patient told me she follow up with his psychiatrist Dr. Childs at [facility] with home she has an appointment on 11/14/2018. EEG and MRI of the cervical spine without contrast all pending. 10/26/2018 Patient still with left side weakness and numbness, similar to yesterday with no improvement or worsening. No new complaint. No chest pain or dyspnea. Patient have cervical MRI showing small syrinx suspected on the level of C4 to 5 through C7 to T1. EKG: Pending. Neurology following the case. Cici evaluated the patient and recommended inpatient rehab for her. Patient continue with aspirin and Plavix. Psychiatrist to see the patient. She is currently on lithium and actually today she was telling the staff she was not taken lithium before coming to the hospital. 10/27/2018 Patients with weakness and numbness in her left side. Neurologist following the patient. Workup so far was nonrevealing for causes that can explain patient 's symptoms. Spinal tap has been recommended by neurologist. We will hold heparin and she is also on aspirin and Plavix will discuss it with the team for the planned LP, prior to the spinal tap. Patient also complained from generalized weakness and some suprapubic discomfort and difficulty in P 18. We will order an urinalysis and bladder scan. 10/28/2018 Patient is more relaxed looking today and more smiling that's her left side is improving even the numbness in her left foot which was great concern for the patient. However they still have residual numbness and weakness. Aspirin, Plavix and heparin on hold for possible need for lumbar puncture. Patient explained the risks benefits of the lumbar puncture and she agrees to it. Patient might benefit from rehab . Vital signs are stable. Except for mild hyperkalemia at 5.5 Yesterday she has some nausea and irrigated air this morning she had some cramps on her right side which is completely resolved now. Patient states that she didn't have a bowel movement for the last 4-5 days. Objective - Vital Signs Vital signs: Vital Signs Temp 98.9 F 10/28/18 08:00 Pulse 93 10/28/18 08:00 Resp 18 10/28/18 08:00 BP 102/64 10/28/18 08:00 Pulse Ox 99 10/28/18 08:00 Intake & Output 10/27/18 10/28/18 10/28/18 18:59 06:59 18:59 Intake Total 444 10 240 Output Total 600 Balance -156 10 240 Weight 59.4 kg Intake: IV 10 0.9 10 Oral 444 240 Output: Urine 600 Other: Voiding Method Toilet # Voids 1 1 - Exam GENERAL: The patient is alert and oriented x3, not in any acute distress. Well developed, well nourished. HEENT: Pupils are round and equally reacting to light. EOMI. No scleral icterus. No conjunctival pallor. Normocephalic, atraumatic. No pharyngeal erythema. No thyromegaly. CARDIOVASCULAR: S1 and S2 present. No murmurs, rubs, or gallops. PULMONARY: Chest is clear to auscultation, no wheezing or crackles. ABDOMEN: Soft, nontender, nondistended, normoactive bowel sounds. No palpable organomegaly. MUSCULOSKELETAL: No joint swelling or deformity. EXTREMITIES: No cyanosis, clubbing, or pedal edema. NEUROLOGICAL: Gross neurological examination did not reveal any focal deficits. Mild weakness in the left upper extremity, more weakness in the left lower extremity. Patient reports numbness in the left upper extremity from the elbow down to the fingers and in the left SKIN: No rashes. - Labs CBC & Chem 7: 10/28/18 05:58 10/28/18 05:58 Labs: Abnormal Lab Results - Last 24 Hours (Table) 10/27/18 10/28/18 10/28/18 Range/Units 11:40 05:58 05:58 WBC 12.0 H (3.8-10.6) k/uL Hct 47.3 H (34.0-46.0) % Neutrophils # 8.1 H (1.3-7.7) k/uL Potassium 5.5 H (3.5-5.1) mmol/L Carbon Dioxide 31 H (22-30) mmol/L BUN 24 H (7-17) mg/dL Calcium 10.3 H (8.4-10.2) mg/dL Urine Blood Trace H (Negative) Ur Leukocyte Esterase Trace H (Negative) Assessment and Plan Assessment: Numbness and weakness of the left side of the body, possible TIA versus others Left sided weakness and numbness. History of narcolepsy History of bipolar disorder Plan: This is a pleasant 38 years old female who presents because of left-sided numbness and weakness. Patient has been evaluated by neurology and workup of MRI of the brain, carotid duplex and echo were unrevealing.Labs and medication were reviewed. Physical therapy consult is appreciated with Dr. Ledezma. Continue same treatment. Continue with symptomatic treatment. Resume home medication. Monitor lytes and vitals. DVT and GI prophylaxis. Further recommendations of the clinical course of the patient DVT prophylaxis: Subcutaneous heparin GI Prophylaxis: Protonix PT/OT: home Prognosis is guarded
[2018-10-28] MEDS: SODIUM CHLORIDE 0.9% 1,000 ML IV SCH (14:27)
[2018-10-28] MEDS: ONDANSETRON 4 MG/2 ML VIAL IVP PRN (14:39)
[2018-10-28] MEDS: LITHIUM CARBONATE 300 MG CAP PO SCH (21:18)
[2018-10-28 22:53] VITALS: RESP 16
[2018-10-29] MEDS: PANTOPRAZOLE 40 MG TABLET PO SCH (06:06)
[2018-10-29 07:14] LABS: Basophils # (A) 0.1 k/uL (0-0.2); Basophils % (A) 1 %; Eosinophils # (A) 0.3 k/uL (0-0.7); Eosinophils % (A) 3 %; HGB 14.7 gm/dL (11.4-16.0); Lymphocytes % (A) 21 %; MCH 29.6 pg (25.0-35.0); MCHC 32.8 g/dL (31.0-37.0); MCV 90.3 fL (80.0-100.0); Mean Platelet Volume 7.9; Monocytes # (A) 0.7 k/uL (0-1.0); Monocytes % (A) 7 %; Neutrophils # (A) 6.4 k/uL (1.3-7.7); Neutrophils % (A) 66 %; Platelet Count 235 k/uL (150-450); RBC 4.98 m/uL (3.80-5.40); WBC 9.8 k/uL (3.8-10.6)
[2018-10-29 07:43] LABS: Potassium 4.7 mmol/L (3.5-5.1)
[2018-10-29] MEDS: NICOTINE 14MG/24HR PATCH TRANSDERM SCH (08:37)
--- NOTE | 2018-10-29 09:05 | P.PN ---
Subjective This is a pleasant 38 years old female with past medical history of narcolepsy, UTI, bipolar disorder, who follow up with his psychiatrist as an outpatient. Presents with left sided weakness and numbness. Patient has been evaluated by neurologist and workup of brain MRI, echocardiogram and carotid blocks having been revealing for a cause. EEG is still pending. Neurology team are following the patient. Physical on the Patient therapist evaluated the patient and they recommended home with no therapy. 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 Patient agrees to see a psychiatrist while inpatient she is currently on lithium. As well as Plavix and aspirin. Patient states that she gets panic attacks at times, she missed her appointment last week with a psychiatrist and rescheduled her appointment for tomorrow for a later date, she is in the hospital. 10/25/2018 Patient was sitting in chair, still complaining from her weakness and numbness in her feet on the left side, when she stood up she could walk without difficulty. Physical therapy already evaluated her they recommended home and the patient will therapy they recommended 24-hour supervision. Patient is informed. We going to ask for physical therapy reevaluation. Patient with history of depression but she didn't denies suicidal ideation or homicidal ideation.: Psych consult area patient told me she follow up with his psychiatrist Dr. Childs at [facility] with home she has an appointment on 11/14/2018. EEG and MRI of the cervical spine without contrast all pending. 10/26/2018 Patient still with left side weakness and numbness, similar to yesterday with no improvement or worsening. No new complaint. No chest pain or dyspnea. Patient have cervical MRI showing small syrinx suspected on the level of C4 to 5 through C7 to T1. EKG: Pending. Neurology following the case. Cici evaluated the patient and recommended inpatient rehab for her. Patient continue with aspirin and Plavix. Psychiatrist to see the patient. She is currently on lithium and actually today she was telling the staff she was not taken lithium before coming to the hospital. 10/27/2018 Patients with weakness and numbness in her left side. Neurologist following the patient. Workup so far was nonrevealing for causes that can explain patient 's symptoms. Spinal tap has been recommended by neurologist. We will hold heparin and she is also on aspirin and Plavix will discuss it with the team for the planned LP, prior to the spinal tap. Patient also complained from generalized weakness and some suprapubic discomfort and difficulty in P 18. We will order an urinalysis and bladder scan. 10/28/2018 Patient is more relaxed looking today and more smiling that's her left side is improving even the numbness in her left foot which was great concern for the patient. However they still have residual numbness and weakness. Aspirin, Plavix and heparin on hold for possible need for lumbar puncture. Patient explained the risks benefits of the lumbar puncture and she agrees to it. Patient might benefit from rehab . Vital signs are stable. Except for mild hyperkalemia at 5.5 Yesterday she has some nausea and irrigated air this morning she had some cramps on her right side which is completely resolved now. Patient states that she didn't have a bowel movement for the last 4-5 days. 10/29/2018 Patient numbness is starting improvement patient is happy about that. Her numbness in her face has resolved completely. His numbness in her lateral side of her left forearm and left hand is mild and improving. Her major numbness in her left foot is also improving patient is kind walk better today however she still needs to use the walker. Lumbar puncture still indicated for the patient also discussed the case with the neurologist. Patient might benefit from rehab upon discharge. Objective - Vital Signs Vital signs: Vital Signs Temp 97.6 F 10/29/18 08:43 Pulse 76 10/29/18 08:43 Resp 16 10/29/18 08:43 BP 98/54 10/29/18 08:43 Pulse Ox 98 10/29/18 08:43 Intake & Output 10/28/18 10/29/18 10/29/18 18:59 06:59 18:59 Intake Total 684 240 Output Total 200 Balance 484 240 Weight 60 kg Intake: Oral 684 240 Output: Urine 200 Other: Voiding Method Toilet Toilet # Voids 0 - Labs CBC & Chem 7: 10/29/18 06:22 10/29/18 06:22 Labs: Abnormal Lab Results - Last 24 Hours (Table) 10/29/18 Range/Units 06:22 Carbon Dioxide 31 H (22-30) mmol/L BUN 22 H (7-17) mg/dL
[2018-10-29] MEDS: SODIUM CHLORIDE 0.9% 1,000 ML IV SCH (15:45)
[2018-10-29] MEDS: LITHIUM CARBONATE 300 MG CAP PO SCH (23:15)
[2018-10-30] MEDS: PANTOPRAZOLE 40 MG TABLET PO SCH (06:47)
[2018-10-30 07:39] LABS: Basophils # (A) 0.1 k/uL (0-0.2); Basophils % (A) 1 %; Eosinophils # (A) 0.3 k/uL (0-0.7); Eosinophils % (A) 4 %; HCT 42.5 % (34.0-46.0); HGB 13.7 gm/dL (11.4-16.0); Lymphocytes # (A) 1.8 k/uL (1.0-4.8); Lymphocytes % (A) 20 %; MCHC 32.2 g/dL (31.0-37.0); MCV 90.1 fL (80.0-100.0); Monocytes # (A) 0.6 k/uL (0-1.0); Monocytes % (A) 6 %; Neutrophils % (A) 67 %; Platelet Count 213 k/uL (150-450); RBC 4.71 m/uL (3.80-5.40); RDW 11.8 % (11.5-15.5)
[2018-10-30 07:46] LABS: Anion Gap 5 mmol/L; Blood Urea Nitrogen 24 mg/dL (7-17); Calcium 9.7 mg/dL (8.4-10.2); Carbon Dioxide 31 mmol/L (22-30); Chloride 103 mmol/L (98-107); Glucose 93 mg/dL (74-99); Potassium 4.6 mmol/L (3.5-5.1); Sodium 139 mmol/L (137-145)
[2018-10-30] MEDS: NICOTINE 14MG/24HR PATCH TRANSDERM SCH (08:33)
--- NOTE | 2018-10-30 10:56 | P.PN ---
Subjective This is a pleasant 38 years old female with past medical history of narcolepsy, UTI, bipolar disorder, who follow up with his psychiatrist as an outpatient. Presents with left sided weakness and numbness. Patient has been evaluated by neurologist and workup of brain MRI, echocardiogram and carotid blocks having been revealing for a cause. EEG is still pending. Neurology team are following the patient. Physical on the Patient therapist evaluated the patient and they recommended home with no therapy. 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 Patient agrees to see a psychiatrist while inpatient she is currently on lithium. As well as Plavix and aspirin. Patient states that she gets panic attacks at times, she missed her appointment last week with a psychiatrist and rescheduled her appointment for tomorrow for a later date, she is in the hospital. 10/25/2018 Patient was sitting in chair, still complaining from her weakness and numbness in her feet on the left side, when she stood up she could walk without difficulty. Physical therapy already evaluated her they recommended home and the patient will therapy they recommended 24-hour supervision. Patient is informed. We going to ask for physical therapy reevaluation. Patient with history of depression but she didn't denies suicidal ideation or homicidal ideation.: Psych consult area patient told me she follow up with his psychiatrist Dr. Childs at [facility] with home she has an appointment on 11/14/2018. EEG and MRI of the cervical spine without contrast all pending. 10/26/2018 Patient still with left side weakness and numbness, similar to yesterday with no improvement or worsening. No new complaint. No chest pain or dyspnea. Patient have cervical MRI showing small syrinx suspected on the level of C4 to 5 through C7 to T1. EKG: Pending. Neurology following the case. Cici evaluated the patient and recommended inpatient rehab for her. Patient continue with aspirin and Plavix. Psychiatrist to see the patient. She is currently on lithium and actually today she was telling the staff she was not taken lithium before coming to the hospital. 10/27/2018 Patients with weakness and numbness in her left side. Neurologist following the patient. Workup so far was nonrevealing for causes that can explain patient 's symptoms. Spinal tap has been recommended by neurologist. We will hold heparin and she is also on aspirin and Plavix will discuss it with the team for the planned LP, prior to the spinal tap. Patient also complained from generalized weakness and some suprapubic discomfort and difficulty in P 18. We will order an urinalysis and bladder scan. 10/28/2018 Patient is more relaxed looking today and more smiling that's her left side is improving even the numbness in her left foot which was great concern for the patient. However they still have residual numbness and weakness. Aspirin, Plavix and heparin on hold for possible need for lumbar puncture. Patient explained the risks benefits of the lumbar puncture and she agrees to it. Patient might benefit from rehab . Vital signs are stable. Except for mild hyperkalemia at 5.5 Yesterday she has some nausea and irrigated air this morning she had some cramps on her right side which is completely resolved now. Patient states that she didn't have a bowel movement for the last 4-5 days. 10/29/2018 Patient numbness is starting improvement patient is happy about that. Her numbness in her face has resolved completely. His numbness in her lateral side of her left forearm and left hand is mild and improving. Her major numbness in her left foot is also improving patient is kind walk better today however she still needs to use the walker. Lumbar puncture still indicated for the patient also discussed the case with the neurologist. Patient might benefit from rehab upon discharge. 10/30/2018 Patient numbness in her upper and lower extremity left side is the same as of yesterday which was improving. No new complaints like chest pain or dyspnea or others. Patient pending insurance catheterization to be sent to [facility] for inpatient rehab. Patient still has holding aspirin and Plavix and heparin for possible lumbar puncture and Monday. Patient informed and she agrees with this plan Objective - Vital Signs Vital signs: Vital Signs Temp 98.3 F 10/30/18 08:36 Pulse 84 10/30/18 08:36 Resp 16 10/30/18 08:36 BP 116/76 10/30/18 08:36 Pulse Ox 98 10/30/18 08:36 Intake & Output 10/29/18 10/30/18 10/30/18 18:59 06:59 18:59 Intake Total 684 480 Output Total 800 1000 Balance -116 -1000 480 Weight 61.9 kg Intake: Oral 684 480 Output: Urine 800 1000 Other: Voiding Method Toilet Toilet Toilet - Exam GENERAL: The patient is alert and oriented x3, not in any acute distress. Well developed, well nourished. HEENT: Pupils are round and equally reacting to light. EOMI. No scleral icterus. No conjunctival pallor. Normocephalic, atraumatic. No pharyngeal erythema. No thyromegaly. CARDIOVASCULAR: S1 and S2 present. No murmurs, rubs, or gallops. PULMONARY: Chest is clear to auscultation, no wheezing or crackles. ABDOMEN: Soft, nontender, nondistended, normoactive bowel sounds. No palpable organomegaly. MUSCULOSKELETAL: No joint swelling or deformity. EXTREMITIES: No cyanosis, clubbing, or pedal edema. NEUROLOGICAL: Gross neurological examination did not reveal any focal deficits. Mild weakness in the left upper extremity, more weakness in the left lower extremity. Patient reports numbness in the left upper extremity from the elbow down to the fingers and in the left SKIN: No rashes. - Labs CBC & Chem 7: 10/30/18 06:38 10/30/18 06:38 Labs: Abnormal Lab Results - Last 24 Hours (Table) 10/30/18 Range/Units 06:38 Carbon Dioxide 31 H (22-30) mmol/L BUN 24 H (7-17) mg/dL Assessment and Plan Assessment: Numbness and weakness of the left side of the body, possible TIA versus others Left sided weakness and numbness. History of narcolepsy History of bipolar disorder Plan: This is a pleasant 38 years old female who presents because of left-sided numbness and weakness. Patient has been evaluated by neurology and workup of MRI of the brain, carotid duplex and echo were unrevealing.Labs and medication were reviewed. Physical therapy consult is appreciated with Dr. Ledezma. Continue same treatment. Continue with symptomatic treatment. Resume home medication. Monitor lytes and vitals. DVT and GI prophylaxis. Further recommendations of the clinical course of the patient DVT prophylaxis: Subcutaneous heparin GI Prophylaxis: Protonix PT/OT: home Prognosis is guarded
[2018-10-30] MEDS: ACETAMINOPHEN TAB 500 MG TAB PO PRN (20:00)
[2018-10-30] MEDS: LITHIUM CARBONATE 300 MG CAP PO SCH (21:35)
[2018-10-31] MEDS: PANTOPRAZOLE 40 MG TABLET PO SCH (06:53)
[2018-10-31 07:20] LABS: Basophils # (A) 0.1 k/uL (0-0.2); Basophils % (A) 1 %; Eosinophils # (A) 0.3 k/uL (0-0.7); Eosinophils % (A) 4 %; HCT 40.7 % (34.0-46.0); Lymphocytes # (A) 1.8 k/uL (1.0-4.8); Lymphocytes % (A) 22 %; MCHC 32.1 g/dL (31.0-37.0); MCV 90.3 fL (80.0-100.0); Mean Platelet Volume 8.1; Monocytes # (A) 0.5 k/uL (0-1.0); Monocytes % (A) 6 %; Neutrophils # (A) 5.4 k/uL (1.3-7.7); Neutrophils % (A) 65 %; Platelet Count 208 k/uL (150-450); RDW 11.9 % (11.5-15.5); WBC 8.2 k/uL (3.8-10.6)
[2018-10-31 08:04] LABS: Anion Gap 6 mmol/L; Blood Urea Nitrogen 23 mg/dL (7-17); Calcium 9.7 mg/dL (8.4-10.2); Carbon Dioxide 27 mmol/L (22-30); Chloride 106 mmol/L (98-107); Glucose 89 mg/dL (74-99); Potassium 4.6 mmol/L (3.5-5.1); Sodium 139 mmol/L (137-145)
[2018-10-31] MEDS: SODIUM CHLORIDE 0.9% 1,000 ML IV SCH (08:38)
[2018-10-31] MEDS: NICOTINE 14MG/24HR PATCH TRANSDERM SCH (08:50)
[2018-10-31 11:06] VITALS: TEMP 98.3
[2018-10-31 11:58] VITALS: BP 115/59; PULSE 81
--- NOTE | 2018-10-31 11:59 | P.DS ---
Providers Date of admission: 10/22/18 12:14 Attending physician: Mary Ellen Magallanes Consults: 10/22/18 12:02 Consult Physician Routine Consulting Provider: Mirian Corona Consult Reason/Comments: Left facial and extremity numbness Do you want consulting provider notified?: Yes 10/23/18 16:55 Consult Physician Routine Consulting Provider: Venkat Mo Consult Reason/Comments: Bipolar disorder Do you want consulting provider notified?: Yes 10/26/18 10:04 Consult Physician Routine Consulting Provider: Eren Ledezma Consult Reason/Comments: evaluate for inpatient rehab Do you want consulting provider notified?: Yes Primary care physician: Ara Dewey Hospital Course: Diagnoses: Numbness and weakness of the left side of the body, needs Lumbar puncture for further evaluation . Improvement History of narcolepsy History of bipolar disorder Hospital course: This is a pleasant 38 years old female with past medical history of narcolepsy, UTI, bipolar disorder, who follow up with his psychiatrist as an outpatient. Presents with left sided weakness and numbness. Patient has been evaluated by neurologist and workup of brain MRI, EEG, echocardiogram and carotid dopplers have not revealed a cause for her symptoms. Neurology team are following the patient. And the recommended lumbar puncture which can be done as an outpatient. Aspirin, Plavix and heparin they were put on hold for the need for the lumbar puncture. Physical therapy and farm mechanic apprentice evaluated the patient and recommended subacute rehab. However over the last 3 days patient started to have improvement in her numbness, numbness around her lips has completely resolved and in her left upper extremity went to minimal, but kept improvement in her left foot. Vision felt she could walk better. However she uses a walker and she might need rehab. Patient was cleared by neurology team for discharge Problems and management plan was discussed with the patient and she verbalized understanding and acceptance Patient is found stable and can be discharged to rehab however she needs follow- up as an outpatient. Appointments and time and discussed with the patient and she agrees with them and states she will follow-up. Discharge exam Gen: patient is a AAOx3, no distress CVS: S1-S2, RRR, no murmur Lungs: B/L CTA, no wheezing Abdomen: soft, no distention, no tenderness, positive bowel sounds Extremity: no leg edema or induration. Gait uses a walker with difficulty due to numbness in her left foot. Time spent more than 35 minutes Patient Condition at Discharge: Stable Plan - Discharge Summary Discharge Rx Participant: No New Discharge Prescriptions: New Acetaminophen Tab [Tylenol] 500 mg PO Q6HR PRN tab PRN Reason: Fever And/ Or Pain Nicotine 14Mg/24Hr Patch [Habitrol] 1 patch TRANSDERM DAILY #30 patch Pantoprazole [Protonix] 40 mg PO AC-BRKFST #30 tablet. Continue Dextroamphetamine/Amphetamine [Adderall] 20 mg PO BID [place] Carbonate 600 mg PO HS Discharge Medication List Dextroamphetamine/Amphetamine [Adderall] 20 mg PO BID 02/02/17 [History] [place] Carbonate 600 mg PO HS 02/02/17 [History] Acetaminophen Tab [Tylenol] 500 mg PO Q6HR PRN tab 10/23/18 [Rx] Nicotine 14Mg/24Hr Patch [Habitrol] 1 patch TRANSDERM DAILY #30 patch 10/23/18 [ Rx] Pantoprazole [Protonix] 40 mg PO AC-BRKFST #30 tablet. 10/23/18 [Rx] Follow up Appointment(s)/Referral(s): Zuleima Bullock MD [Primary Care Provider] - 11/06/18 10:30 am (Monday) Mirian Corona MD [STAFF PHYSICIAN] - 11/08/18 2:50 pm () Patient Instructions/Handouts: Transient Ischemic Attack (DC), Safe Use of Antiplatelet Medication (DC) Activity/Diet/Wound Care/Special Instructions: Ceferino Santos In patient rehab neurology cleared patient for d/c. When patient is discharged from rehab need to schedule her a follow up appointment with Dr. Russell Corona - they will then assist her with scheduling lumbar puncture. Discharge Disposition: TRANSFER TO SNF/ECF
== END 2018-10-31 15:20 ==
LOC: EC 09:11 → 3SCARD 12:14
PROVIDERS: ADMIT Internal Medicine; ATTEND Internal Medicine
DX: R20.0 Anesthesia of skin (principal); R53.1 Weakness; R20.2 Paresthesia of skin; R26.2 Difficulty in walking, not elsewhere classified; G47.419 Narcolepsy without cataplexy; F31.30 Bipolar disorder, current episode depressed, mild or moderate severity, unspecified; F41.0 Panic disorder [episodic paroxysmal anxiety]; M50.322 Other cervical disc degeneration at C5-C6 level; R10.30 Lower abdominal pain, unspecified; E87.5 Hyperkalemia; R11.0 Nausea; T43.596A Underdosing of other antipsychotics and neuroleptics, initial encounter; Z91.128 Patient's intentional underdosing of medication regimen for other reason; F17.210 Nicotine dependence, cigarettes, uncomplicated; Z79.899 Other long term (current) drug therapy; Z88.1 Allergy status to other antibiotic agents; Z87.440 Personal history of urinary (tract) infections; Z80.1 Family history of malignant neoplasm of trachea, bronchus and lung; Z81.1 Family history of alcohol abuse and dependence; Z81.3 Family history of other psychoactive substance abuse and dependence; Z81.8 Family history of other mental and behavioral disorders; Z81.2 Family history of tobacco abuse and dependence
CPT/HCPCS: 96376; 96361 ×3; 96372 ×5; 96374; 99285; 36415; 95816; 93005; 93306; 97116 ×5; 97530 ×4; 97162; 97112; 97535 ×3; 97166; 92523; 80061; 80053; 80048 ×6; 82550; 82553; 80178; 83735; 84484; 85025 ×7; 85610; 85730; 81001 ×2; 71046; 93880; 70450; 70551; 72141; 72142; G0378 ×10; S4990 ×10; J1644 ×5; J2405 ×2; A9585

== ENCOUNTER → 2018-12-15 | Outpatient (CLI) | payer OTHER | END | disposition home or self-care (01) | LOC: LABWHC1 12:00 → EDSTATUS 12-16 11:00 → LABPRL 12-16 11:34 | PROVIDERS: ATTEND Psychiatry & Neurology Psychiatry | DX: Z51.81 Encounter for therapeutic drug level monitoring (principal); Z79.899 Other long term (current) drug therapy | CPT/HCPCS: 80178 ==

== ENCOUNTER → 2019-02-26 | Outpatient (CLI) | payer OTHER ==
--- NOTE | 2019-02-26 11:30 | MR ---
EXAMINATION TYPE: MR brain wow/ con DATE OF EXAM: 02/26/2019 COMPARISON: 10/23/2018 HISTORY: Numbness, weakness TECHNIQUE: Multiplanar, multisequence images of the brain and brainstem is performed without and with IV contras t, utilizing 6.5 mL intravenous Gadavist . FINDINGS: Diffusion weighted images demonstrate no evidence of a recent infarct or other diffusion ab normality. The ventricular system and cisternal spaces are normal in size and appearance. The brain volume is age appropriate. Midline structures demonstrate normal morphology. The craniocervical junction appears within normal limits. Post contrast images demonstrate no abnormal enhancement. The dural venous sinuses appear pa tent. There are changes of chronic sinusitis. Trace amount of fluid surrounding the optic nerves. White matter: There are approximately 5 areas of abnormal signal seen within the white matter. All measure less than 5 mm. No enhancing lesions. No callosal lesions. No lesions perpendicular to the ventricular system. IMPRESSION: 1. Stable nonspecific minimal white matter change. Differential diagnosis would include migraine head aches, hypertension, demyelinating disease or remote microvascular ischemia. 2. Trace amount of fluid surrounding the optic nerve is stable and nonspecific and could be a normal finding. Correlate clinically to exclude papilledema.
--- NOTE | 2019-02-26 11:36 | MR ---
EXAMINATION TYPE: MR thoracic spine wo/w con DATE OF EXAM: 02/26/2019 COMPARISON: 10/25/2018 MRI cervical spine HISTORY: Numbness, weakness CONTRAST: Standard multiplanar, multisequence MRI departmental protocol utilizing 6.5 mL intravenous Gadavist g adolinium contrast. FINDINGS: Vertebral body height and disc interspace and signal is maintained at all levels. There are no compression deformities. No abnormal signal in the marrow. No disc herniation, canal stenosis, or foraminal encroachment. There is also abnormal signal within the spinal cord throughout the thoracic spine. This is been prev iously reported in MRI cervical spine. No enhancement. IMPRESSION: Abnormal signal within the spinal cord appears to be well defined. Recently reported by MRI cervical spine representing prominent central canal. Would also include syrinx within the differential diagnos is. No enhancement. Extends a length of the thoracic spinal cord. Measures approximately 1.5 x 1.5 mi llimeters in AP and transverse dimension.
== END | disposition home or self-care (01) ==
LOC: RADMRIMAIN 09:13
PROVIDERS: ATTEND Psychiatry & Neurology Neurology
DX: R90.89 Other abnormal findings on diagnostic imaging of central nervous system (principal); R93.0 Abnormal findings on diagnostic imaging of skull and head, not elsewhere classified
CPT/HCPCS: 70553; 72157; A9585

== ENCOUNTER → 2020-01-21 | Outpatient (CLI) | payer OTHER ==
[2020-01-21 17:53] LABS: Erythrocyte Sedimentation Rate 9 mm/hr (0-20)
[2020-01-21 19:04] LABS: HCT 36.7 % (34.0-46.0); HGB 12.1 gm/dL (11.4-16.0); MCH 27.6 pg (25.0-35.0); MCHC 32.9 g/dL (31.0-37.0); Mean Platelet Volume 8.9; Platelet Count 296 k/uL (150-450); RBC 4.37 m/uL (3.80-5.40); WBC 6.2 k/uL (3.8-10.6)
[2020-01-21 23:46] LABS: C Reactive Protein <0.4 mg/dL (0.0-0.8)
[2020-01-22 02:00] LABS: Hemoglobin A1C 5.7 % (4.0-6.0)
== END | disposition home or self-care (01) ==
LOC: LABWHC1 15:14
PROVIDERS: ATTEND Ophthalmology
DX: E05.00 Thyrotoxicosis with diffuse goiter without thyrotoxic crisis or storm (principal)
CPT/HCPCS: 36415; 83036; 84439; 84443; 85027; 85652; 86140

== ENCOUNTER → 2020-06-05 | Outpatient (CLI) | payer OTHER ==
[2020-06-05 12:03] LABS: Basophils % (A) 0 %; Eosinophils # (A) 0.2 k/uL (0-0.7); Eosinophils % (A) 3 %; HCT 39.9 % (34.0-46.0); HGB 12.7 gm/dL (11.4-16.0); Lymphocytes # (A) 2.3 k/uL (1.0-4.8); Lymphocytes % (A) 38 %; MCH 26.9 pg (25.0-35.0); MCHC 31.9 g/dL (31.0-37.0); MCV 84.5 fL (80.0-100.0); Mean Platelet Volume 9.1; Monocytes # (A) 0.4 k/uL (0-1.0); Monocytes % (A) 7 %; Neutrophils % (A) 49 %; Platelet Count 240 k/uL (150-450); RBC 4.72 m/uL (3.80-5.40); RDW 12.2 % (11.5-15.5); WBC 6.1 k/uL (3.8-10.6)
[2020-06-05 19:50] LABS: ALT 40 U/L (8-44); AST 28 U/L (13-35); African American GFR (CKD) 139.3 (60.0-200.0); Albumin/Globulin Ratio 1.95 (1.60-3.17); Alkaline Phosphatase 124 U/L (41-126); Carbon Dioxide 27.7 mmol/L (21.6-31.8); Chloride 107 mmol/L (96-109); Globulin 2.1 g/dL (1.6-3.3); Glucose 107 mg/dL (70-110); Non-African American GFR(CKD) 120.2 (60.0-200.0); Potassium 5.3 mmol/L (3.5-5.5); Sodium 140 mmol/L (135-145); Total Bilirubin 0.2 mg/dL (0.2-1.2); Total Protein 6.2 g/dL (6.2-8.2)
== END | disposition home or self-care (01) ==
LOC: LABWHC1 09:23
PROVIDERS: ATTEND Nurse Practitioner Acute Care
DX: R53.83 Other fatigue (principal); Z86.73 Personal history of transient ischemic attack (TIA), and cerebral infarction without residual deficits
CPT/HCPCS: 36415; 80053; 82306; 82607; 84207; 84439; 84443; 84481; 85025

== ENCOUNTER → 2020-06-18 | Outpatient (CLI) | payer OTHER | END | disposition home or self-care (01) | LOC: LABWHC1 11:19 | PROVIDERS: ATTEND Psychiatry & Neurology Neurology | DX: Z53.9 Procedure and treatment not carried out, unspecified reason (principal) ==

== ENCOUNTER 2021-03-10 20:49 | Emergency (ER) | payer OTHER ==
[2021-03-10] MEDS ORDERED: IBUPROFEN 600 MG TAB PO STA (20:53)
[2021-03-10 20:56] VITALS: BP 158/85; PULSE 90; TEMP 98.2
--- NOTE | 2021-03-10 21:55 | ED ---
URI HPI - General Chief Complaint: Upper Respiratory Infection Stated Complaint: SOB, Fever Time Seen by Provider: 03/10/21 21:02 Source: patient Mode of arrival: ambulatory Limitations: no limitations - History of Present Illness MD Complaint: cough, nasal congestion Onset/Timin -: days(s) Severity: moderate Consistency: constant Improves With: nothing Worsens With: nothing Context: sick contacts Associated Symptoms: fever, chills, myalgias, headache, nasal congestion, cough, diarrhea Treatments Prior to Arrival: none - Related Data Home Medications Medication Instructions Recorded Confirmed Dextroamphetamine/Amphetamine 20 mg PO BID 02/02/17 03/10/21 [Adderall] Acetaminophen Tab [Tylenol] 1,000 mg PO Q6HR PRN 03/10/21 03/10/21 Furosemide [Lasix] 20 mg PO DAILY PRN 03/10/21 03/10/21 Ibuprofen [Motrin Ib] 600 mg PO Q8H PRN 03/10/21 03/10/21 Methimazole [Tapazole] 20 mg PO DAILY 03/10/21 03/10/21 Metoprolol Tartrate [Lopressor] 50 mg PO BID 03/10/21 03/10/21 Allergies Allergy/AdvReac Type Severity Reaction Status Date / Time cephalexin monohydrate Allergy Mild Dyspnea Verified 03/10/21 21:34 [From Keflex] Review of Systems ROS Statement: Those systems with pertinent positive or pertinent negative responses have been documented in the HPI. ROS Other: All systems not noted in ROS Statement are negative. Constitutional: Reports: fever, chills ENT: Reports: congestion Respiratory: Reports: cough. Denies: dyspnea, wheezes Cardiovascular: Denies: chest pain, palpitations, edema Gastrointestinal: Reports: diarrhea. Denies: abdominal pain, nausea, vomiting, melena, hematochezia Genitourinary: Denies: dysuria, hematuria Musculoskeletal: Reports: myalgia. Denies: back pain Skin: Denies: rash Neurological: Reports: headache. Denies: weakness, numbness 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 Additional Past Medical History / Comment(s): Narcolepsy, UTI History of Any Multi-Drug Resistant Organisms: None Reported Past Surgical History: Hernia Repair Additional Past Surgical History / Comment(s): Bilateral inguinal hernia repairs Past Anesthesia/Blood Transfusion Reactions: No Reported Reaction Past Psychological History: Bipolar, Depression Smoking Status: Vaper Past Alcohol Use History: None Reported Past Drug Use History: None Reported - Past Family History Mother Family Medical History: Cancer Additional Family Medical History / Comment(s): Mother of lung cancer with history of smoking. Father Additional Family Medical History / Comment(s): Father from suicide. He had history of alcoholism and drug abuse. Sister(s) Additional Family Medical History / Comment(s): She has one sister with no major medical problems. Brother(s) Additional Family Medical History / Comment(s): She has 2 half brothers with no major medical problems. Daughter(s) Additional Family Medical History / Comment(s): She has 4 children. One daughter at 20, son 17, son 15, son 9. Youngest has autism. General Exam Limitations: no limitations General appearance: alert, in no apparent distress Head exam: Present: atraumatic, normocephalic Eye exam: Present: normal appearance. Absent: scleral icterus, conjunctival injection Neck exam: Present: full ROM. Absent: meningismus Respiratory exam: Present: normal lung sounds bilaterally. Absent: respiratory distress, wheezes, rales, rhonchi, stridor Cardiovascular Exam: Present: regular rate, normal rhythm, normal heart sounds. Absent: systolic murmur, diastolic murmur, rubs, gallop GI/Abdominal exam: Present: soft. Absent: distended, tenderness, guarding, rebound, rigid, mass Extremities exam: Present: normal inspection, normal capillary refill. Absent: pedal edema, calf tenderness Back exam: Present: normal inspection. Absent: CVA tenderness (R), CVA tenderness (L) Neurological exam: Present: alert Skin exam: Present: warm, dry, intact, normal color. Absent: rash Course Vital Signs 03/10/21 20:53 Temperature 98.2 F Pulse Rate 90 Respiratory 17 Rate Blood Pressure 158/85 O2 Sat by Pulse 99 Oximetry Medical Decision Making - Lab Data Lab Results 03/10/21 Range/Units 20:56 Coronavirus (PCR) Detected A (Not Detectd) Disposition Clinical Impression: COVID-19 Disposition: HOME SELF-CARE Condition: Good Instructions (If sedation given, give patient instructions): Coronavirus Disease 2019 (COVID-19) Is patient prescribed a controlled substance at d/c from ED?: No Referrals: Zuleima Bullock MD [Primary Care Provider] - 1-2 days
--- NOTE | 2021-03-10 21:58 | XR ---
EXAMINATION TYPE: XR chest 2V DATE OF EXAM: 03/10/2021 CLINICAL HISTORY: fever. TECHNIQUE: Frontal and lateral view of the chest. COMPARISON: 10/22/2018 FINDINGS: The cardiomediastinal silhouette is within normal limits for size. Pulmonary vasculature i s normal. There is no focal air space opacity. No pleural effusion. No pneumothorax seen. No acute d isplaced osseous fracture. IMPRESSION: No acute cardiopulmonary process.
[2021-03-10 22:27] VITALS: RESP 20
== END 2021-03-10 22:27 | disposition home or self-care (01) ==
LOC: EC 20:49
DX: U07.1 COVID-19 (principal); F32.9 Major depressive disorder, single episode, unspecified; G47.419 Narcolepsy without cataplexy; F17.290 Nicotine dependence, other tobacco product, uncomplicated
CPT/HCPCS: 71046; 87635; 99285

== ENCOUNTER 2021-05-09 18:49 | Emergency (ER) | payer OTHER ==
[2021-05-09 18:53] VITALS: BP 136/64; PULSE 94; RESP 16; TEMP 97.8
[2021-05-09] MEDS ORDERED: AMOXIC-POT CLAV 875MG STARTER PACK 2 TAB BTL PO STA (19:10)
[2021-05-09] MEDS ORDERED: MORPHINE SULFATE 4 MG/ML SYRINGE IM STA (19:10)
[2021-05-09] MEDS ORDERED: ACET/COD 300 MG/30 MG STARTER PACK 6 TAB BTL PO STA (19:10)
[2021-05-09] MEDS ORDERED: KETOROLAC 15 MG/ML 1 ML VIAL IM STA (19:10)
--- NOTE | 2021-05-09 19:13 | ED ---
General Adult HPI - General Chief complaint: Dental/Oral Stated complaint: dental pain Time Seen by Provider: 05/09/21 19:02 Source: patient Mode of arrival: ambulatory Limitations: no limitations - History of Present Illness Initial comments: 40 year-old female patient presents to the emergency department for evaluation of left upper dental pain. Patient states that she had filling come out of the left molar and the pain started about 4 days ago. States that the pain is worsening, radiating in to her head and ear. Denies any fever but states she has been chilled. Denies any trismus or difficulty swallowing. Denies vomiting. Denies facial swelling. States she does not have dental insurance. - Related Data Home Medications Medication Instructions Recorded Confirmed Dextroamphetamine/Amphetamine 20 mg PO BID 02/02/17 03/10/21 [Adderall] Acetaminophen Tab [Tylenol] 1,000 mg PO Q6HR PRN 03/10/21 03/10/21 Furosemide [Lasix] 20 mg PO DAILY PRN 03/10/21 03/10/21 Ibuprofen [Motrin Ib] 600 mg PO Q8H PRN 03/10/21 03/10/21 Methimazole [Tapazole] 20 mg PO DAILY 03/10/21 03/10/21 Metoprolol Tartrate [Lopressor] 50 mg PO BID 03/10/21 03/10/21 Previous Rx's Medication Instructions Recorded Amoxic-Pot Clav 875-125Mg 1 tab PO Q12HR #20 tablet 05/09/21 [Augmentin 875-125] Ibuprofen [Motrin] 600 mg PO Q8HR PRN #30 tab 05/09/21 Allergies Allergy/AdvReac Type Severity Reaction Status Date / Time cephalexin monohydrate Allergy Mild Dyspnea Verified 05/09/21 18:53 [From Keflex] Review of Systems ROS Statement: Those systems with pertinent positive or pertinent negative responses have been documented in the HPI. ROS Other: All systems not noted in ROS Statement are negative. 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 Additional Past Medical History / Comment(s): Narcolepsy, UTI History of Any Multi-Drug Resistant Organisms: None Reported Past Surgical History: Hernia Repair Additional Past Surgical History / Comment(s): Bilateral inguinal hernia repairs Past Anesthesia/Blood Transfusion Reactions: No Reported Reaction Past Psychological History: Bipolar, Depression Smoking Status: Vaper Past Alcohol Use History: None Reported Past Drug Use History: None Reported - Past Family History Mother Family Medical History: Cancer Additional Family Medical History / Comment(s): Mother of lung cancer with history of smoking. Father Additional Family Medical History / Comment(s): Father from suicide. He had history of alcoholism and drug abuse. Sister(s) Additional Family Medical History / Comment(s): She has one sister with no major medical problems. Brother(s) Additional Family Medical History / Comment(s): She has 2 half brothers with no major medical problems. Daughter(s) Additional Family Medical History / Comment(s): She has 4 children. One daughter at 20, son 17, son 15, son 9. Youngest has autism. General Exam Limitations: no limitations General appearance: alert, in no apparent distress, other (Physical well- developed, well-nourished adult female patient in no acute distress. Vital signs upon presentation temperature 97.8F, pulse 94, respirations 16, blood pressure 136/64, pulse ox 100% on room air.) Eye exam: Present: scleral icterus, conjunctival injection. Absent: periorbital swelling ENT exam: Present: normal oropharynx, mucous membranes moist, TM's normal bilaterally, other (fractured tooth #16, no surrounding erythema or swelling.) Respiratory exam: Present: normal lung sounds bilaterally. Absent: respiratory distress, wheezes, rales, rhonchi, stridor Cardiovascular Exam: Present: regular rate, normal rhythm, normal heart sounds. Absent: systolic murmur, diastolic murmur, rubs, gallop, clicks Neurological exam: Present: alert, oriented X3, CN II-XII intact Psychiatric exam: Present: normal affect, normal mood Skin exam: Present: warm, dry, intact, normal color. Absent: rash Course Vital Signs 05/09/21 18:52 Temperature 97.8 F Pulse Rate 94 Respiratory 16 Rate Blood Pressure 136/64 O2 Sat by Pulse 100 Oximetry Medical Decision Making - Medical Decision Making 40-year-old female patient presents for evaluation of left upper dental pain started 4 days ago. Physical examination did reveal fractured tooth #16. No surrounding gingival erythema or hyperplasia. She is afebrile with normal vital signs. We will start antibiotic prescription pain medication but she is instructed to follow-up with dentistry soon as possible. Return parameters discussed in detail. She verbalizes understanding and agrees this plan. My attending is Dr. Cook. Disposition Clinical Impression: Dental infection Disposition: HOME SELF-CARE Condition: Good Instructions (If sedation given, give patient instructions): Dental Abscess (ED), Toothache (ED) Additional Instructions: Complete antibiotic as prescribed. The best place to get these medications are [facility] or [facility] for the lowest prices. Follow-up with dentistry as soon as possible. Return to the emergency department for any new, worsening, or concerning symptoms. Please follow up with the [facility] dental clinic. [facility] [place] [address]. Phone number for new patients or for existing patients. [facility]. Must pay for x-rays then services are free. Call for an appoitnment. Prescriptions: Amoxic-Pot Clav 875-125Mg [Augmentin 875-125] 1 tab PO Q12HR #20 tablet Ibuprofen [Motrin] 600 mg PO Q8HR PRN #30 tab PRN Reason: Pain Is patient prescribed a controlled substance at d/c from ED?: No Referrals: Zuleima Bullock MD [Primary Care Provider] - 1-2 days Time of Disposition: 19:13
== END 2021-05-09 19:35 | disposition home or self-care (01) ==
LOC: EC 18:49
DX: K04.7 Periapical abscess without sinus (principal); K03.81 Cracked tooth; F17.290 Nicotine dependence, other tobacco product, uncomplicated; Z88.1 Allergy status to other antibiotic agents
CPT/HCPCS: 99283; 96372; J2270; J1885

== ENCOUNTER → 2021-07-12 | Outpatient (CLI) | payer OTHER ==
[2021-07-12 14:01] LABS: Basophils # (A) 0.06 X 10*3/uL (0.00-0.10); Basophils % (A) 0.7 %; Eosinophils # (A) 0.19 X 10*3/uL (0.04-0.35); Eosinophils % (A) 2.1 %; HCT 43.6 % (37.2-46.3); HGB 14.6 g/dL (12.0-15.0); Lymphocytes # (A) 3.69 X 10*3/uL (0.90-5.00); Lymphocytes % (A) 40.7 %; MCHC 33.5 g/dL (32.0-37.0); MCV 86.5 fL (80.0-97.0); Mean Platelet Volume 11.9 fL (9.5-12.2); Monocytes # (A) 0.76 X 10*3/uL (0.20-1.00); Monocytes % (A) 8.4 %; Neutrophils # (A) 4.34 X 10*3/uL (1.80-7.70); Neutrophils % (A) 47.8 %; Platelet Count 278 X 10*3/uL (140-440); RBC 5.04 X 10*6/uL (4.10-5.20); RDW 11.8 % (11.5-14.5); WBC 9.07 X 10*3/uL (4.50-10.00)
[2021-07-12 17:17] LABS: Erythrocyte Sedimentation Rate 2 mm/Hr (0-20)
[2021-07-12 17:19] LABS: % Iron Saturation 25.65 (12.00-45.00); ALT 33 U/L (8-44); AST 17 U/L (13-35); African American GFR (CKD) 123.9 (60.0-200.0); Albumin/Globulin Ratio 1.91 (1.60-3.17); Alkaline Phosphatase 129 U/L (41-126); BUN/Creat Ratio 27.14 Ratio (12.00-20.00); C Reactive Protein <0.4 mg/dL (0.0-0.8); Calcium 9.8 mg/dL (8.7-10.3); Carbon Dioxide 21.3 mmol/L (21.6-31.8); Chloride 106 mmol/L (96-109); Globulin 2.3 g/dL (1.6-3.3); Glucose 112 mg/dL (70-110); Iron 99 ug/dL (50-170); Non-African American GFR(CKD) 106.9 (60.0-200.0); Potassium 4.6 mmol/L (3.5-5.5); Sodium 137 mmol/L (135-145); Total Bilirubin 0.3 mg/dL (0.3-1.2); Total Iron Binding Capacity 386 ug/dL (228-460); Total Protein 6.7 g/dL (6.2-8.2)
[2021-07-12 19:18] LABS: Creatine Kinase 41 U/L (26-186)
== END | disposition home or self-care (01) ==
LOC: LABWHC1 08:54
PROVIDERS: ATTEND Psychiatry & Neurology Neurology
DX: R42 Dizziness and giddiness (principal); I10 Essential (primary) hypertension; E05.90 Thyrotoxicosis, unspecified without thyrotoxic crisis or storm; R53.1 Weakness; R90.82 White matter disease, unspecified; E55.9 Vitamin D deficiency, unspecified; E53.9 Vitamin B deficiency, unspecified
CPT/HCPCS: 36415; 80053; 82306; 82550; 82607; 83540; 83550; 84207; 85025; 85652; 86140

== ENCOUNTER 2023-12-10 06:43 | Emergency (ER) | payer OTHER ==
[2023-12-10] MEDS ORDERED: SODIUM CHLORIDE 0.9% 1,000 ML IV STA (07:06)
[2023-12-10] MEDS ORDERED: METOPROLOL TARTRATE 25 MG TAB PO STA (07:08)
[2023-12-10 07:13] VITALS: TEMP 98.2
[2023-12-10 07:18] LABS: Basophils % (A) 1 %; Eosinophils # (A) 0.1 k/uL (0-0.7); Eosinophils % (A) 1 %; HGB 15.2 gm/dL (11.4-16.0); Lymphocytes # (A) 1.7 k/uL (1.0-4.8); Lymphocytes % (A) 32 %; MCH 30.2 pg (25.0-35.0); MCHC 33.7 g/dL (31.0-37.0); MCV 89.4 fL (80.0-100.0); Mean Platelet Volume 9.2; Monocytes # (A) 0.3 k/uL (0-1.0); Monocytes % (A) 6 %; Neutrophils # (A) 3.1 k/uL (1.3-7.7); Neutrophils % (A) 59 %; Platelet Count 246 k/uL (150-450); RBC 5.03 m/uL (3.80-5.40); RDW 11.9 % (11.5-15.5); WBC 5.4 k/uL (3.8-10.6)
--- NOTE | 2023-12-10 07:26 | ED ---
General Adult HPI - General Chief complaint: Chest Pain Stated complaint: Cardiac Symptoms Time Seen by Provider: 12/10/23 06:59 Source: patient, RN notes reviewed, old records reviewed Mode of arrival: EMS Limitations: no limitations - History of Present Illness Initial comments: 43-year-old female presents for evaluation of chest pain and anxiety. Patient states her symptoms started just prior to arrival. She does have history of bipolar depression and is scheduled to see [facility] tomorrow. She feels somewhat anxious about this. Additionally she has been off of her metoprolol for the past 2 days. She has remote history of hypothyroidism but has not been treated for the past several years. No significant dyspnea. No history of cardiac disease. - Related Data Home Medications Medication Instructions Recorded Confirmed Dextroamphetamine/Amphetamine 20 mg PO BID 02/02/17 03/10/21 [Adderall] Acetaminophen Tab [Tylenol] 1,000 mg PO Q6HR PRN 03/10/21 03/10/21 Furosemide [Lasix] 20 mg PO DAILY PRN 03/10/21 03/10/21 Ibuprofen [Motrin Ib] 600 mg PO Q8H PRN 03/10/21 03/10/21 Metoprolol Tartrate [Lopressor] 50 mg PO BID 03/10/21 03/10/21 methIMAzole [Tapazole] 20 mg PO DAILY 03/10/21 03/10/21 Previous Rx's Medication Instructions Recorded Amoxic-Pot Clav 875-125Mg 1 tab PO Q12HR #20 tablet 05/09/21 [Augmentin 875-125] Ibuprofen [Motrin] 600 mg PO Q8HR PRN #30 tab 05/09/21 Metoprolol Tartrate [Lopressor] 25 mg PO BID #60 tablet 12/10/23 Allergies Allergy/AdvReac Type Severity Reaction Status Date / Time cephalexin monohydrate Allergy Mild Dyspnea Verified 12/10/23 06:59 [From Keflex] Review of Systems ROS Statement: Those systems with pertinent positive or pertinent negative responses have been documented in the HPI. ROS Other: All systems not noted in ROS Statement are negative. 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 Additional Past Medical History / Comment(s): Narcolepsy, UTI History of Any Multi-Drug Resistant Organisms: None Reported Past Surgical History: Hernia Repair Additional Past Surgical History / Comment(s): Bilateral inguinal hernia repairs Past Anesthesia/Blood Transfusion Reactions: No Reported Reaction Past Psychological History: Bipolar, Depression Smoking Status: Vaper Past Alcohol Use History: None Reported Past Drug Use History: None Reported - Past Family History Mother Family Medical History: Cancer Additional Family Medical History / Comment(s): Mother of lung cancer with history of smoking. Father Additional Family Medical History / Comment(s): Father from suicide. He had history of alcoholism and drug abuse. Sister(s) Additional Family Medical History / Comment(s): She has one sister with no major medical problems. Brother(s) Additional Family Medical History / Comment(s): She has 2 half brothers with no major medical problems. Daughter(s) Additional Family Medical History / Comment(s): She has 4 children. One daughter at 20, son 17, son 15, son 9. Youngest has autism. General Exam Limitations: no limitations General appearance: alert, anxious Head exam: Present: atraumatic, normocephalic Eye exam: Present: normal appearance, PERRL ENT exam: Present: normal exam Neck exam: Present: normal inspection. Absent: tenderness, meningismus Respiratory exam: Present: normal lung sounds bilaterally, respiratory distress Cardiovascular Exam: Present: normal rhythm, tachycardia GI/Abdominal exam: Present: soft. Absent: distended, tenderness, guarding Extremities exam: Present: normal inspection, normal capillary refill Neurological exam: Present: alert, oriented X3, CN II-XII intact. Absent: motor sensory deficit Psychiatric exam: Present: normal affect, normal mood Skin exam: Present: warm, dry, intact. Absent: cyanosis, diaphoretic Course Vital Signs 12/10/23 12/10/23 12/10/23 06:54 06:58 07:57 Temperature 98.2 F 98.2 F Pulse Rate 128 H 122 H 70 Respiratory 18 18 20 Rate Blood Pressure 109/78 109/78 105/70 O2 Sat by Pulse 100 100 98 Oximetry 12/10/23 08:00 Temperature Pulse Rate 70 Respiratory 20 Rate Blood Pressure 105/70 O2 Sat by Pulse 98 Oximetry Medical Decision Making - Medical Decision Making Was pt. sent in by a medical professional or institution (, PA, [employer], urgent care, hospital, or jail...) When possible be specific @ -No Did you speak to anyone other than the patient for history (EMS, parent, family, police, friend...)? What history was obtained from this source @ -No Did you review nursing and triage notes (agree or disagree)? Why? @ -I reviewed and agree with nursing and triage notes Were old charts reviewed (outside hosp., previous admission, EMS record, old EKG, old radiological studies, urgent care reports/EKG's, jail records)? Report findings @ -No old charts were reviewed Differential Diagnosis (chest pain, altered mental status, abdominal pain women, abdominal pain men, vaginal bleeding, weakness, fever, dyspnea, syncope, h eadache, dizziness, GI bleed, back pain, seizure, CVA, palpatations, mental health, musculoskeletal)? @ -not applicable EKG interpreted by me (3pts min.). @Sinus tachycardia rate of 120, MN interval 151, QRS duration 73, QTC [address] segment elevation. X-rays interpreted by me (1pt min.). @ -Chest x-ray: No acute findings, no pneumothorax, no focal pneumonia CT interpreted by me (1pt min.). @ -None done U/S interpreted by me (1pt. min.). @ -None done What testing was considered but not performed or refused? (CT, X-rays, U/S, labs)? Why? @ -None What meds were considered but not given or refused? Why? @ -None Did you discuss the management of the patient with other professionals (professionals i.e. , PA, [employer], lab, RT, psych nurse, school social worker, moderate needs teacher, teacher, energy control officer, case picker)? Give summary @ -No Was smoking cessation discussed for >3mins.? @ -No Was critical care preformed (if so, how long)? @ -No Were there social determinants of health that impacted care today? How? (Homelessness, low income, unemployed, alcoholism, drug addiction, transportation, low edu. Level, literacy, decrease access to med. care, alf, rehab)? @ -No Was there de-escalation of care discussed even if they declined (Discuss DNR or withdrawal of care, Hospice)? DNR status @ -No What co-morbidities impacted this encounter? (DM, HTN, Smoking, COPD, CAD, Cancer, CVA, ARF, Chemo, Hep., AIDS, mental health diagnosis, sleep apnea, morbid obesity)? @ Tachycardia, Was patient admitted / discharged? Hospital course, mention meds given and route, prescriptions, significant lab abnormalities, going to OR and other pertinent info. @ 43-year-old female presenting with anxiety and chest discomfort. Patient is tachycardic upon arrival and states that she ran out of her metoprolol 2 days prior. Patient has chest x-ray showing sinus tachycardia, chest x-ray is clear. She has normal CBC, normal CMP, negative d-dimer, negative troponin. Patient has a normal TSH. Heart rate normalizes with 1 dose of oral metoprolol. Patient does appear anxious and states she has an appointment with [facility] tomorrow. I offered EPS evaluation the emergency department but the patient declines and prefers continued follow-up with [facility]. Patient stable for discharge at this time. Undiagnosed new problem with uncertain prognosis? @ -No Drug Therapy requiring intensive monitoring for toxicity (Heparin, Nitro, Insulin, Cardizem)? @ -No Were any procedures done? @ -No Diagnosis/symptom? @ Anxiety, tachycardia Acute, or Chronic, or Acute on Chronic? @ Acute Uncomplicated (without systemic symptoms) or Complicated (systemic symptoms)? @ complicated Side effects of treatment? @ -No Exacerbation, Progression, or Severe Exacerbation? @ -No Poses a threat to life or bodily function? How? (Chest pain, USA, MN, pneumonia, PE, COPD, DKA, ARF, appy, cholecystitis, CVA, Diverticulitis, Homicidal, Suicidal, threat to staff... and all critical care pts) @ -Low risk at this time - Lab Data Result diagrams: 12/10/23 07:00 12/10/23 07:00 Lab Results 12/10/23 12/10/23 12/10/23 Range/Units 07:00 07:00 07:00 WBC 5.4 (3.8-10.6) k/uL RBC 5.03 (3.80-5.40) m/uL Hgb 15.2 (11.4-16.0) gm/dL Hct 45.0 (34.0-46.0) % MCV 89.4 (80.0-100.0) fL MCH 30.2 (25.0-35.0) pg MCHC 33.7 (31.0-37.0) g/dL RDW 11.9 (11.5-15.5) % Plt Count 246 (150-450) k/uL MPV 9.2 Neutrophils % 59 % Lymphocytes % 32 % Monocytes % 6 % Eosinophils % 1 % Basophils % 1 % Neutrophils # 3.1 (1.3-7.7) k/uL Lymphocytes # 1.7 (1.0-4.8) k/uL Monocytes # 0.3 (0-1.0) k/uL Eosinophils # 0.1 (0-0.7) k/uL Basophils # 0.0 (0-0.2) k/uL PT 11.0 (10.0-12.5) sec INR 1.0 (<1.2) APTT 21.6 L (22.0-30.0) sec D-Dimer <0.17 (<0.60) mg/L FEU Sodium 140 (137-145) mmol/L Potassium 3.4 L (3.5-5.1) mmol/L Chloride 108 H (98-107) mmol/L Carbon Dioxide 26 (22-30) mmol/L Anion Gap 6 mmol/L BUN 20 H (7-17) mg/dL Creatinine 0.60 (0.52-1.04) mg/dL Est GFR (CKD-EPI)AfAm >90 (>60 ml/min/1.73 sqM) Est GFR (CKD-EPI)NonAf >90 (>60 ml/min/1.73 sqM) Glucose 149 H (74-99) mg/dL Calcium 9.4 (8.4-10.2) mg/dL Magnesium 1.7 (1.6-2.3) mg/dL Total Bilirubin 0.5 (0.2-1.3) mg/dL AST 21 (14-36) U/L ALT 18 (4-34) U/L Alkaline Phosphatase 76 (38-126) U/L Troponin I (0.000-0.034) ng/mL Total Protein 6.7 (6.3-8.2) g/dL Albumin 4.0 (3.5-5.0) g/dL TSH 0.543 (0.465-4.680) mIU/L 12/10/23 Range/Units 07:00 WBC (3.8-10.6) k/uL RBC (3.80-5.40) m/uL Hgb (11.4-16.0) gm/dL Hct (34.0-46.0) % MCV (80.0-100.0) fL MCH (25.0-35.0) pg MCHC (31.0-37.0) g/dL RDW (11.5-15.5) % Plt Count (150-450) k/uL MPV Neutrophils % % Lymphocytes % % Monocytes % % Eosinophils % % Basophils % % Neutrophils # (1.3-7.7) k/uL Lymphocytes # (1.0-4.8) k/uL Monocytes # (0-1.0) k/uL Eosinophils # (0-0.7) k/uL Basophils # (0-0.2) k/uL PT (10.0-12.5) sec INR (<1.2) APTT (22.0-30.0) sec D-Dimer (<0.60) mg/L FEU Sodium (137-145) mmol/L Potassium (3.5-5.1) mmol/L Chloride (98-107) mmol/L Carbon Dioxide (22-30) mmol/L Anion Gap mmol/L BUN (7-17) mg/dL Creatinine (0.52-1.04) mg/dL Est GFR (CKD-EPI)AfAm (>60 ml/min/1.73 sqM) Est GFR (CKD-EPI)NonAf (>60 ml/min/1.73 sqM) Glucose (74-99) mg/dL Calcium (8.4-10.2) mg/dL Magnesium (1.6-2.3) mg/dL Total Bilirubin (0.2-1.3) mg/dL AST (14-36) U/L ALT (4-34) U/L Alkaline Phosphatase (38-126) U/L Troponin I <0.012 (0.000-0.034) ng/mL Total Protein (6.3-8.2) g/dL Albumin (3.5-5.0) g/dL TSH (0.465-4.680) mIU/L Disposition Clinical Impression: Chest pain, Tachycardia Disposition: HOME SELF-CARE Condition: Fair Instructions (If sedation given, give patient instructions): Chest Pain (ED) Prescriptions: Metoprolol Tartrate [Lopressor] 25 mg PO BID #60 tablet Is patient prescribed a controlled substance at d/c from ED?: No Referrals: None,Stated [Primary Care Provider] - 1-2 days Zuleima Bullock MD [REFERRING] - 1-2 days Time of Disposition: 08:57
[2023-12-10 07:30] LABS: ALT 18 U/L (4-34); AST 21 U/L (14-36); African American GFR (CKD) >90 (>60 ml/min/1.73 sqM); Alkaline Phosphatase 76 U/L (38-126); Anion Gap 6 mmol/L; Blood Urea Nitrogen 20 mg/dL (7-17); Calcium 9.4 mg/dL (8.4-10.2); Carbon Dioxide 26 mmol/L (22-30); Chloride 108 mmol/L (98-107); Glucose 149 mg/dL (74-99); Magnesium 1.7 mg/dL (1.6-2.3); Non-African American GFR(CKD) >90 (>60 ml/min/1.73 sqM); Potassium 3.4 mmol/L (3.5-5.1); Sodium 140 mmol/L (137-145); Total Bilirubin 0.5 mg/dL (0.2-1.3); Total Protein 6.7 g/dL (6.3-8.2)
[2023-12-10 07:47] LABS: Partial Thromboplastin Time 21.6 sec (22.0-30.0)
--- NOTE | 2023-12-10 07:52 | XR ---
EXAMINATION TYPE: XR chest 2V DATE OF EXAM: 12/10/2023 COMPARISON: 03/10/2021 HISTORY: Chest pain TECHNIQUE: Frontal and lateral views of the chest are obtained. FINDINGS: There is no focal air space opacity, pleural effusion, or pneumothorax seen. The cardiac silhouette size is within normal limits. The osseous structures are intact. IMPRESSION: No acute cardiopulmonary process.
[2023-12-10 08:24] VITALS: RESP 20
[2023-12-10 11:05] VITALS: BP 130/60; PULSE 100
== END 2023-12-10 10:59 | disposition home or self-care (01) ==
LOC: EC 06:43
DX: R00.0 Tachycardia, unspecified (principal); R07.9 Chest pain, unspecified; I25.2 Old myocardial infarction; E03.9 Hypothyroidism, unspecified; F17.290 Nicotine dependence, other tobacco product, uncomplicated; Z86.59 Personal history of other mental and behavioral disorders; Z79.899 Other long term (current) drug therapy; Z88.1 Allergy status to other antibiotic agents
CPT/HCPCS: 36415; 71046; 80053; 83735; 84443; 84484; 85025; 85379; 85610; 85730; 93005; 96360; 96361; 99285

== ENCOUNTER 2023-12-16 14:53 | Emergency (ER) | payer OTHER ==
[2023-12-16 15:11] VITALS: RESP 16; TEMP 97.8
--- NOTE | 2023-12-16 15:54 | ED ---
Psych HPI - General Source: patient, family, RN notes reviewed Mode of arrival: ambulatory Limitations: no limitations - History of Present Illness MD Complaint: feels depressed <Milagros Alegria - Last Filed: 12/16/23 15:54> <Ramirez Anaya - Last Filed: 12/16/23 19:57> - General Source: patient, family, RN notes reviewed Mode of arrival: ambulatory Limitations: no limitations <Adrienne Solis - Last Filed: 12/17/23 11:12> - General Chief Complaint: Psychiatric Symptoms Stated Complaint: Mental health Time Seen by Provider: 12/16/23 15:53 - History of Present Illness Initial Comments: This is a 43-year-old female who presents to the emergency department for psychiatric evaluation. Reports a history of bipolar depression and anxiety and states that she has been struggling with increasing depression recently. Denies any suicidal or homicidal ideations. Also denies any auditory or visual hallucinations. (Milagros Alegria) 43-year-old female presents to the emergency department for mental health evaluation. Patient states that she has a history of bipolar disorder she is not currently taking any medications for this. She states that she has had worsening depression for around 1 month. She reports that she has been more te arful recently. She denies suicidal, homicidal ideation, self-harm. She denies any hallucinations, delusions. (Adrienne Solis) - Related Data Home Medications Medication Instructions Recorded Confirmed Dextroamphetamine/Amphetamine 20 mg PO BID@0500,1400 02/02/17 12/16/23 [Adderall] Naproxen [Naprosyn] 500 mg PO BID PRN 12/16/23 12/16/23 Previous Rx's Medication Instructions Recorded Metoprolol Tartrate [Lopressor] 25 mg PO BID #60 tablet 12/10/23 Allergies Allergy/AdvReac Type Severity Reaction Status Date / Time cephalexin monohydrate Allergy Mild Dyspnea Verified 12/16/23 20:45 [From Keflex] Review of Systems ROS Other: All systems not noted in ROS Statement are negative. <Milagros Alegria - Last Filed: 12/16/23 15:54> ROS Other: All systems not noted in ROS Statement are negative. <Ramirez Anaya - Last Filed: 12/16/23 19:57> ROS Other: All systems not noted in ROS Statement are negative. <GilmerkrunalAdrienne neville - Last Filed: 12/17/23 11:12> ROS Statement: Those systems with pertinent positive or pertinent negative responses have been documented in the HPI. 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, CVA/TIA Additional Past Medical History / Comment(s): Narcolepsy, UTI History of Any Multi-Drug Resistant Organisms: None Reported Past Surgical History: Hernia Repair Additional Past Surgical History / Comment(s): Bilateral inguinal hernia repairs Past Anesthesia/Blood Transfusion Reactions: No Reported Reaction Past Psychological History: Bipolar, Depression Smoking Status: Vaper Past Alcohol Use History: None Reported Past Drug Use History: None Reported - Past Family History Mother Family Medical History: Cancer Additional Family Medical History / Comment(s): Mother of lung cancer with history of smoking. Father Additional Family Medical History / Comment(s): Father from suicide. He had history of alcoholism and drug abuse. Sister(s) Additional Family Medical History / Comment(s): She has one sister with no major medical problems. Brother(s) Additional Family Medical History / Comment(s): She has 2 half brothers with no major medical problems. Daughter(s) Additional Family Medical History / Comment(s): She has 4 children. One daughter at 20, son 17, son 15, son 9. Youngest has autism. <Milagros Alegria - Last Filed: 12/16/23 15:54> General Exam Limitations: no limitations <Milagros Alegria - Last Filed: 12/16/23 15:54> Limitations: no limitations General appearance: alert, in no apparent distress Head exam: Present: atraumatic, normocephalic, normal inspection Eye exam: Present: normal appearance, PERRL, EOMI. Absent: scleral icterus, conjunctival injection, periorbital swelling ENT exam: Present: normal exam, mucous membranes moist Neck exam: Present: normal inspection. Absent: tenderness, meningismus, lymphadenopathy Respiratory exam: Present: normal lung sounds bilaterally. Absent: respiratory distress, wheezes, rales, rhonchi, stridor Cardiovascular Exam: Present: regular rate, normal rhythm, normal heart sounds. Absent: systolic murmur, diastolic murmur, rubs, gallop, clicks GI/Abdominal exam: Present: soft, normal bowel sounds. Absent: distended, tenderness, guarding, rebound, rigid Extremities exam: Present: normal inspection, full ROM, normal capillary refill. Absent: tenderness, pedal edema, joint swelling, calf tenderness Back exam: Present: normal inspection Neurological exam: Present: alert, oriented X3 Psychiatric exam: Present: depressed, flat affect Skin exam: Present: warm, dry, intact, normal color. Absent: rash <Adrienne Solis - Last Filed: 12/17/23 11:12> - General Exam Comments Initial Comments: Visual Physical Exam Vital signs reviewed General: Well-appearing, nontoxic, no acute distress. Head: Normocephalic, atraumatic Eyes: PERRLA, EOMI ENT: Airway patent Chest: Nonlabored breathing Skin: No visual rash, normal skin tone Neuro: Alert and oriented 3 Musculoskeletal: No gross abnormalities (Milagros Alegria) Course Vital Signs 12/16/23 12/17/23 14:57 05:37 Temperature 97.8 F Pulse Rate 92 87 Respiratory 16 16 Rate Blood Pressure 128/85 146/74 O2 Sat by Pulse 99 99 Oximetry Medical Decision Making <Milagros Alegria - Last Filed: 12/16/23 15:54> <Ramirez Anaya - Last Filed: 12/16/23 19:57> - Lab Data Result diagrams: 12/16/23 22:44 12/16/23 22:44 <Adrienne Solis - Last Filed: 12/17/23 11:12> - Medical Decision Making I performed the QuickNote portion of this chart. Signed Milagros Alegria PA-C. (Milagros Alegria) I did see the patient and completed the clinical certification. (Ramirez Anaya) Was pt. sent in by a medical professional or institution ([facility] Leggett, CASING WRINGER OPERATOR, urgent care, hospital, or custodial...) When possible be specific @ -No Did you speak to anyone other than the patient for history (EMS, parent, family, police, friend...)? What history was obtained from this source @ -No Did you review nursing and triage notes (agree or disagree)? Why? @ -I reviewed and agree with nursing and triage notes Were old charts reviewed (outside hosp., previous admission, EMS record, old EKG, old radiological studies, urgent care reports/EKG's, custodial records)? Report findings @ -No old charts were reviewed Differential Diagnosis (chest pain, altered mental status, abdominal pain women, abdominal pain men, vaginal bleeding, weakness, fever, dyspnea, syncope, headache, dizziness, GI bleed, back pain, seizure, CVA, palpatations, mental health, musculoskeletal)? @ -Differential Mental Health Depression, anxiety, bipolar, psychosis, schizophrenia, borderline personality, situational depression, adjustment disorder, behavioral disorder, brain tumor, malingering, substance abuse, encephalopathy, medication reaction, dementia, hypothyroidism, degenerative neurologic disorder, lupus.... This is not meant to be all-inclusive list EKG interpreted by me (3pts min.). @ -None X-rays interpreted by me (1pt min.). @ -None done CT interpreted by me (1pt min.). @ -None done U/S interpreted by me (1pt. min.). @ -None done What testing was considered but not performed or refused? (CT, X-rays, U/S, labs)? Why? @ -None What meds were considered but not given or refused? Why? @ -None Did you discuss the management of the patient with other professionals (professionals i.e. , PA, CASING WRINGER OPERATOR, lab, RT, psych nurse, social insurance administrator, retail manager in training, teacher, certification officer, transplant case manager)? Give summary @ -Management discussed with EPS nurse. Patient was evaluated and found to meet inpatient criteria. Was smoking cessation discussed for >3mins.? @ -No Was critical care preformed (if so, how long)? @ -No Were there social determinants of health that impacted care today? How? (Homelessness, low income, unemployed, alcoholism, drug addiction, transportation, low edu. Level, literacy, decrease access to med. care, care home, rehab)? @ -No Was there de-escalation of care discussed even if they declined (Discuss DNR or withdrawal of care, Hospice)? DNR status @ -No What co-morbidities impacted this encounter? (DM, HTN, Smoking, COPD, CAD, Cancer, CVA, ARF, Chemo, Hep., AIDS, mental health diagnosis, sleep apnea, morbid obesity)? @ -None Was patient admitted / discharged? Hospital course, mention meds given and route, prescriptions, significant lab abnormalities, going to OR and other pertinent info. @ -Presented to the emergency department for mental health evaluation. Patient admits to increased depression over the past month. She denies any physical symptoms at this time. She denies suicidal homicidal ideation. Patient was evaluated by emergency psychiatric services and case discussed with psychiatrist. Patient meeting inpatient criteria and will be referred to [facility] for treatment. Patient stable at time of transfer. Undiagnosed new problem with uncertain prognosis? @ -No Drug Therapy requiring intensive monitoring for toxicity (Heparin, Nitro, Insulin, Cardizem)? @ -No Were any procedures done? @ -No Diagnosis/symptom? @ -Depression, bipolar disorder Acute, or Chronic, or Acute on Chronic? @ -Acute Uncomplicated (without systemic symptoms) or Complicated (systemic symptoms)? @ -Uncomplicated Side effects of treatment? @ -No Exacerbation, Progression, or Severe Exacerbation? @ -No Poses a threat to life or bodily function? How? (Chest pain, USA, NM, pneumonia, PE, COPD, DKA, ARF, appy, cholecystitis, CVA, Diverticulitis, Homicidal, Suicidal, threat to staff... and all critical care pts) @ -No (Adrienne Solis) - Lab Data Lab Results 12/16/23 12/16/23 12/16/23 Range/Units 22:44 22:44 22:44 WBC 8.6 (3.8-10.6) k/uL RBC 4.81 (3.80-5.40) m/uL Hgb 14.4 (11.4-16.0) gm/dL Hct 41.8 (34.0-46.0) % MCV 87.0 (80.0-100.0) fL MCH 29.9 (25.0-35.0) pg MCHC 34.4 (31.0-37.0) g/dL RDW 11.8 (11.5-15.5) % Plt Count 264 (150-450) k/uL MPV 9.1 Neutrophils % 43 % Lymphocytes % 45 % Monocytes % 6 % Eosinophils % 2 % Basophils % 1 % Neutrophils # 3.7 (1.3-7.7) k/uL Lymphocytes # 3.8 (1.0-4.8) k/uL Monocytes # 0.5 (0-1.0) k/uL Eosinophils # 0.2 (0-0.7) k/uL Basophils # 0.1 (0-0.2) k/uL Sodium 135 L (137-145) mmol/L Potassium 3.9 (3.5-5.1) mmol/L Chloride 103 (98-107) mmol/L Carbon Dioxide 25 (22-30) mmol/L Anion Gap 7 mmol/L BUN 23 H (7-17) mg/dL Creatinine 0.71 (0.52-1.04) mg/dL Est GFR (CKD-EPI)AfAm >90 (>60 ml/min/1.73 sqM) Est GFR (CKD-EPI)NonAf >90 (>60 ml/min/1.73 sqM) Glucose 92 (74-99) mg/dL Calcium 9.3 (8.4-10.2) mg/dL Total Bilirubin 0.4 (0.2-1.3) mg/dL AST 20 (14-36) U/L ALT 18 (4-34) U/L Alkaline Phosphatase 69 (38-126) U/L Total Protein 6.6 (6.3-8.2) g/dL Albumin 3.9 (3.5-5.0) g/dL Urine HCG, Qual (Not Detectd) Urine Opiates Screen Not Detected (NotDetected) Ur Oxycodone Screen Not Detected (NotDetected) Urine Methadone Screen Not Detected (NotDetected) Ur Barbiturates Screen Not Detected (NotDetected) U Tricyclic Antidepress Not Detected (NotDetected) Ur Phencyclidine Scrn Not Detected (NotDetected) Ur Amphetamines Screen Detected H (NotDetected) U Methamphetamines Scrn Not Detected (NotDetected) U Benzodiazepines Scrn Not Detected (NotDetected) Urine Cocaine Screen Not Detected (NotDetected) U Marijuana (THC) Screen Not Detected (NotDetected) SARS-CoV-2 (PCR) (Not Detectd) 12/16/23 12/17/23 Range/Units 22:44 00:00 WBC (3.8-10.6) k/uL RBC (3.80-5.40) m/uL Hgb (11.4-16.0) gm/dL Hct (34.0-46.0) % MCV (80.0-100.0) fL MCH (25.0-35.0) pg MCHC (31.0-37.0) g/dL RDW (11.5-15.5) % Plt Count (150-450) k/uL MPV Neutrophils % % Lymphocytes % % Monocytes % % Eosinophils % % Basophils % % Neutrophils # (1.3-7.7) k/uL Lymphocytes # (1.0-4.8) k/uL Monocytes # (0-1.0) k/uL Eosinophils # (0-0.7) k/uL Basophils # (0-0.2) k/uL Sodium (137-145) mmol/L Potassium (3.5-5.1) mmol/L Chloride (98-107) mmol/L Carbon Dioxide (22-30) mmol/L Anion Gap mmol/L BUN (7-17) mg/dL Creatinine (0.52-1.04) mg/dL Est GFR (CKD-EPI)AfAm (>60 ml/min/1.73 sqM) Est GFR (CKD-EPI)NonAf (>60 ml/min/1.73 sqM) Glucose (74-99) mg/dL Calcium (8.4-10.2) mg/dL Total Bilirubin (0.2-1.3) mg/dL AST (14-36) U/L ALT (4-34) U/L Alkaline Phosphatase (38-126) U/L Total Protein (6.3-8.2) g/dL Albumin (3.5-5.0) g/dL Urine HCG, Qual Not Detected (Not Detectd) Urine Opiates Screen (NotDetected) Ur Oxycodone Screen (NotDetected) Urine Methadone Screen (NotDetected) Ur Barbiturates Screen (NotDetected) U Tricyclic Antidepress (NotDetected) Ur Phencyclidine Scrn (NotDetected) Ur Amphetamines Screen (NotDetected) U Methamphetamines Scrn (NotDetected) U Benzodiazepines Scrn (NotDetected) Urine Cocaine Screen (NotDetected) U Marijuana (THC) Screen (NotDetected) SARS-CoV-2 (PCR) Not Detected (Not Detectd) Disposition <Milagros Alegria - Last Filed: 12/16/23 15:54> <Ramirez Anaya - Last Filed: 12/16/23 19:57> Is patient prescribed a controlled substance at d/c from ED?: No <Adrienne Solis - Last Filed: 12/17/23 11:12> Clinical Impression: Bipolar disorder, Depressive disorder Disposition: TRANSFER TO PSYCH HOSP/UNIT Condition: Stable Referrals: None,Stated [Primary Care Provider] - 1-2 days
[2023-12-16 23:06] LABS: Basophils # (A) 0.1 k/uL (0-0.2); Basophils % (A) 1 %; Eosinophils # (A) 0.2 k/uL (0-0.7); Eosinophils % (A) 2 %; HCT 41.8 % (34.0-46.0); HGB 14.4 gm/dL (11.4-16.0); Lymphocytes # (A) 3.8 k/uL (1.0-4.8); Lymphocytes % (A) 45 %; MCH 29.9 pg (25.0-35.0); MCHC 34.4 g/dL (31.0-37.0); Mean Platelet Volume 9.1; Monocytes # (A) 0.5 k/uL (0-1.0); Monocytes % (A) 6 %; Neutrophils # (A) 3.7 k/uL (1.3-7.7); Neutrophils % (A) 43 %; Platelet Count 264 k/uL (150-450); RBC 4.81 m/uL (3.80-5.40); RDW 11.8 % (11.5-15.5); WBC 8.6 k/uL (3.8-10.6)
[2023-12-16 23:22] LABS: Potassium 3.9 mmol/L (3.5-5.1)
[2023-12-16 23:23] LABS: ALT 18 U/L (4-34); AST 20 U/L (14-36); African American GFR (CKD) >90 (>60 ml/min/1.73 sqM); Albumin 3.9 g/dL (3.5-5.0); Alkaline Phosphatase 69 U/L (38-126); Anion Gap 7 mmol/L; Blood Urea Nitrogen 23 mg/dL (7-17); Calcium 9.3 mg/dL (8.4-10.2); Carbon Dioxide 25 mmol/L (22-30); Chloride 103 mmol/L (98-107); Glucose 92 mg/dL (74-99); Non-African American GFR(CKD) >90 (>60 ml/min/1.73 sqM); Sodium 135 mmol/L (137-145); Total Bilirubin 0.4 mg/dL (0.2-1.3); Total Protein 6.6 g/dL (6.3-8.2)
[2023-12-16 23:45] LABS: Cocaine Screen,Urine Not Detected (NotDetected); Phencyclidine Screen,Urine Not Detected (NotDetected); Urn Cannabinoid Scrn Not Detected (NotDetected)
[2023-12-16 23:46] LABS: Amphetamine Screen,Urine Detected (NotDetected); Barbiturate Screen,Urine Not Detected (NotDetected); Benzodiazepines Screen,Urine Not Detected (NotDetected); Methadone Screen, Urine Not Detected (NotDetected); Opiate Screen,Urine Not Detected (NotDetected); Oxycodone Screen, Urine Not Detected (NotDetected); Tricyclic Antidepressant,Urine Not Detected (NotDetected)
[2023-12-17 06:00] VITALS: BP 146/74; PULSE 87
== END 2023-12-17 09:06 ==
LOC: EC 14:53
DX: F31.9 Bipolar disorder, unspecified (principal); F17.290 Nicotine dependence, other tobacco product, uncomplicated; Z20.822 Contact with and (suspected) exposure to COVID-19; Z88.1 Allergy status to other antibiotic agents; Z86.73 Personal history of transient ischemic attack (TIA), and cerebral infarction without residual deficits
CPT/HCPCS: 36415; 80053; 80306; 81025; 82075; 85025; 87635; 99285

== ENCOUNTER → 2024-05-21 | Outpatient (CLI) | payer OTHER ==
--- NOTE | 2024-05-25 16:53 | MM ---
Reason for Exam: Screening (asymptomatic). Last mammogram was performed 16 year(s) and 11 month(s) ago. Patient History: Menarche at age 9. First Full-Term at age 17. Patient has history of breast feeding. Maternal grandmother had breast cancer. Risk Values: Raquel 5 year model risk: 0.6%. NCI Lifetime model risk: 7.7%. Prior Study Comparison: 07/04/2007 Bilateral Diagnostic Mammogram, [facility]. Tissue Density: The breasts are heterogeneously dense, which may obscure small masses. Findings: Analyzed By CAD. There is no suspicious group of microcalcifications or new suspicious mass in either breast. Overall Assessment: Negative, BI-RAD 1 Management: Screening Mammogram of both breasts in 1 year. . Patient should continue monthly self-breast exams. A clinical breast exam by your physician is recommended on an annual basis. This exam should not preclude additional follow-up of suspicious palpable abnormalities. Note on Raquel scores and lifetime risk: 1. A Raquel score greater than 3% is considered moderate risk. If this is the case, consider specialist referral to assess eligibility for a risk reducing agent. 2. If overall lifetime risk for the development of breast cancer is 20% or higher, the patient may qualify for future screening with alternating mammogram and breast MRI. Electronically signed and approved by: Margarita Muñoz M.D. Radiologist
== END | disposition home or self-care (01) ==
LOC: RADMAMWWP 08:05
PROVIDERS: ATTEND Family Medicine
DX: Z12.31 Encounter for screening mammogram for malignant neoplasm of breast (principal); Z80.3 Family history of malignant neoplasm of breast
CPT/HCPCS: 77063; 77067

== ENCOUNTER 2024-07-21 16:52 | Observation (INO) | payer OTHER ==
[2024-07-21] MEDS: ONDANSETRON 4 MG/2 ML VIAL IVP STA (17:26)
[2024-07-21] MEDS: SODIUM CHLORIDE 0.9% 1,000 ML IV STA (17:26)
[2024-07-21] MEDS: MORPHINE SULFATE 4 MG/ML SYRINGE IVP STA (17:26)
[2024-07-21 17:35] LABS: Appearance,Urine Clear (Clear); Bilirubin,Urine Negative (Negative); Blood,Urine Large (Negative); Color,Urine Light Yellow; Glucose,Urine (UA) Negative (Negative); Ketones,Urine Negative (Negative); Leukocyte Esterase,Urine Small (Negative); Mucus,Urine Rare /hpf; Nitrite,Urine Negative (Negative); Protein,Urine Trace (Negative); RBC,Urine >182 /hpf (0-5); Specific Gravity,Urine 1.024 (1.001-1.035); Squamous Epithelial Cell,Urine 2 /hpf (0-4); Urobilinogen,Urine <2.0 mg/dL (<2.0); WBC,Urine 6 /hpf (0-5)
[2024-07-21 17:48] LABS: Basophils % (A) 1 %; Eosinophils # (A) 0.1 k/uL (0-0.7); Eosinophils % (A) 1 %; HGB 14.4 gm/dL (11.4-16.0); Lymphocytes # (A) 2.8 k/uL (1.0-4.8); Lymphocytes % (A) 37 %; MCH 31.1 pg (25.0-35.0); MCHC 33.4 g/dL (31.0-37.0); MCV 92.8 fL (80.0-100.0); Mean Platelet Volume 8.6; Monocytes # (A) 0.3 k/uL (0-1.0); Monocytes % (A) 4 %; Neutrophils # (A) 4.1 k/uL (1.3-7.7); Neutrophils % (A) 54 %; Platelet Count 292 k/uL (150-450); RBC 4.63 m/uL (3.80-5.40); RDW 13.7 % (11.5-15.5); WBC 7.6 k/uL (3.8-10.6)
--- NOTE | 2024-07-21 17:55 | ED ---
Abdominal Pain HPI - General Chief Complaint: Abdominal Pain Stated Complaint: abd pain Time Seen by Provider: 07/21/24 17:00 Source: patient Mode of arrival: ambulatory Limitations: no limitations - History of Present Illness Initial Comments: 43-year-old female presenting with chief complaint of abdominal pain. Patient is having right lower quadrant pain. Pain started late last night. Yesterday she was having diarrhea and some dysuria. Today she went to urgent care and was sent over to rule out appendicitis. She was told that she has blood in her urine. States that she is perimenopausal and 3 days ago she was having some heavy vaginal bleeding and is now having some spotting. No fevers. Admits to nausea with no vomiting. - Related Data Home Medications Medication Instructions Recorded Confirmed Dextroamphetamine/Amphetamine 20 mg PO BID@0500,1400 02/02/17 12/16/23 [Adderall] Naproxen [Naprosyn] 500 mg PO BID PRN 12/16/23 12/16/23 Previous Rx's Medication Instructions Recorded Metoprolol Tartrate [Lopressor] 25 mg PO BID #60 tablet 12/10/23 Allergies Allergy/AdvReac Type Severity Reaction Status Date / Time cephalexin monohydrate Allergy Mild Dyspnea Verified 07/21/24 16:57 [From Keflex] Review of Systems ROS Statement: Those systems with pertinent positive or pertinent negative responses have been documented in the HPI. ROS Other: All systems not noted in ROS Statement are negative. 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, CVA/TIA Additional Past Medical History / Comment(s): Narcolepsy, UTI History of Any Multi-Drug Resistant Organisms: None Reported Past Surgical History: Hernia Repair Additional Past Surgical History / Comment(s): Bilateral inguinal hernia repairs Past Anesthesia/Blood Transfusion Reactions: No Reported Reaction Past Psychological History: Bipolar, Depression Smoking Status: Vaper Past Alcohol Use History: None Reported Past Drug Use History: None Reported - Past Family History Mother Family Medical History: Cancer Additional Family Medical History / Comment(s): Mother of lung cancer with history of smoking. Father Additional Family Medical History / Comment(s): Father from suicide. He had history of alcoholism and drug abuse. Sister(s) Additional Family Medical History / Comment(s): She has one sister with no major medical problems. Brother(s) Additional Family Medical History / Comment(s): She has 2 half brothers with no major medical problems. Daughter(s) Additional Family Medical History / Comment(s): She has 4 children. One daughter at 20, son 17, son 15, son 9. Youngest has autism. General Exam Limitations: no limitations General appearance: alert, in no apparent distress Head exam: Present: atraumatic, normocephalic Eye exam: Present: normal appearance, EOMI Neck exam: Present: normal inspection. Absent: meningismus Respiratory exam: Present: normal lung sounds bilaterally. Absent: respiratory distress, wheezes, rales, rhonchi, stridor Cardiovascular Exam: Present: regular rate, normal rhythm, normal heart sounds. Absent: systolic murmur, diastolic murmur, rubs, gallop, clicks GI/Abdominal exam: Present: soft, tenderness, guarding. Absent: distended, rebound, rigid Neurological exam: Present: alert, oriented X3 Psychiatric exam: Present: normal affect, normal mood Skin exam: Present: warm, dry Course Vital Signs 07/21/24 07/21/24 07/21/24 16:53 18:25 20:12 Temperature 98.3 F Pulse Rate 81 53 L 55 L Respiratory 16 16 19 Rate Blood Pressure 129/77 129/87 141/82 O2 Sat by Pulse 99 99 95 Oximetry 07/21/24 07/21/24 21:23 23:30 Temperature Pulse Rate 55 L 50 L Respiratory 16 16 Rate Blood Pressure 145/90 119/66 O2 Sat by Pulse 100 100 Oximetry Medical Decision Making - Medical Decision Making Was pt. sent in by a medical professional or institution (Dr. PA, HOSPITAL PHARMACY TECHNICIAN, urgent care, hospital, or residential...) When possible be specific @ -Urgent care Did you speak to anyone other than the patient for history (EMS, parent, family, police, friend...)? What history was obtained from this source @ -No Did you review nursing and triage notes (agree or disagree)? Why? @ -I reviewed and agree with nursing and triage notes Were old charts reviewed (outside hosp., previous admission, EMS record, old EKG, old radiological studies, urgent care reports/EKG's, residential records)? Report findings @ -No old charts were reviewed Differential Diagnosis (chest pain, altered mental status, abdominal pain women, abdominal pain men, vaginal bleeding, weakness, fever, dyspnea, syncope, headache, dizziness, GI bleed, back pain, seizure, CVA, palpatations, mental health, musculoskeletal)? @ -MDM Differential Abdominal Pain Women: Appendicitis, Cholecystitis, diverticulosis, ischemic bowel, pancreatitis, he patitis, UTI, gastroenteritis, AAA, incarcerated hernia, bowel obstruction, constipation, inflammatory bowel, hepatitis, peptic ulcer disease, splenic infarction, perforated viscus, vulvitis, ovarian torsion, PID, kidney stone, placenta abruption... This is not meant to be an all-inclusive list EKG interpreted by me (3pts min.). @ -As above X-rays interpreted by me (1pt min.). @ -None done CT interpreted by me (1pt min.). @ -CT shows no acute abdominal process. No evidence for obstructive uropathy or renal calculus. The appendix is normal. IUD in appropriate position. U/S interpreted by me (1pt. min.). @ -Ultrasound shows IUD visualized within the endometrium. Both the right and left ovary are obscured by overlying bowel gas. What testing was considered but not performed or refused? (CT, X-rays, U/S, labs)? Why? @ -None What meds were considered but not given or refused? Why? @ -None Did you discuss the management of the patient with other professionals (professionals i.e. , PA, HOSPITAL PHARMACY TECHNICIAN, lab, RT, psych nurse, clinical social work aide, casino duty manager, teacher, commercial credit officer, case management specialist)? Give summary @ -I spoke with Dr. Campos regarding inconclusive ultrasound. She advised that we keep the patient for observation for pain control and repeat ultrasound in the morning. Was smoking cessation discussed for >3mins.? @ -No Was critical care preformed (if so, how long)? @ -No Were there social determinants of health that impacted care today? How? (Homelessness, low income, unemployed, alcoholism, drug addiction, transportation, low edu. Level, literacy, decrease access to med. care, shelter, rehab)? @ -No Was there de-escalation of care discussed even if they declined (Discuss DNR or withdrawal of care, Hospice)? DNR status @ -No What co-morbidities impacted this encounter? (DM, HTN, Smoking, COPD, CAD, Cancer, CVA, ARF, Chemo, Hep., AIDS, mental health diagnosis, sleep apnea, mor bid obesity)? @ -None Was patient admitted / discharged? Hospital course, mention meds given and [place], prescriptions, significant lab abnormalities, going to OR and other pertinent info. @ -43-year-old female presenting with chief complaint of right lower quadrant pain that started earlier today. History and physical exam are conducted. No leukocytosis or anemia. Negative hCG. Urine shows large blood with greater than 182 RBCs. Patient is currently spotting, she is perimenopausal and has irregular menstrual cycles, she was bleeding 3 days ago and this is now decreased to spotting. CT is obtained which shows no evidence of appendicitis or obstructive uropathy. Patient is still in quite a bit of pain after pain medication. Ultrasound is obtained to rule out ovarian torsion. Both ovaries are obscured by bowel gas. Patient is still in significant pain after pain medication. Given that the ultrasound was not able to provide an answer to the question of ovarian torsion I spoke with [employer] on-call Dr. Campos. She advised night for pain management patient is agreeable with this plan. I discussed this case with my attending Dr. Geroges. Undiagnosed new problem with uncertain prognosis? @ -No Drug Therapy requiring intensive monitoring for toxicity (Heparin, Nitro, Insulin, Cardizem)? @ -No Were any procedures done? @ -No Diagnosis/symptom? @ -Intractable abdominal pain, rule out ovarian torsion Acute, or Chronic, or Acute on Chronic? @ -Acute Uncomplicated (without systemic symptoms) or Complicated (systemic symptoms)? @ -Complicated Side effects of treatment? @ -No Exacerbation, Progression, or Severe Exacerbation? @ -No Poses a threat to life or bodily function? How? (Chest pain, [place], [place], pneumonia, PE, COPD, DKA, ARF, appy, cholecystitis, CVA, Diverticulitis, Homicidal, Suicidal, threat to staff... and all critical care pts) @ -Yes - Lab Data Result diagrams: 07/21/24 17:10 07/21/24 17:10 Lab Results 07/21/24 07/21/24 07/21/24 Range/Units 17:10 17:10 17:10 WBC 7.6 (3.8-10.6) k/uL RBC 4.63 (3.80-5.40) m/uL Hgb 14.4 (11.4-16.0) gm/dL Hct 43.0 (34.0-46.0) % MCV 92.8 (80.0-100.0) fL MCH 31.1 (25.0-35.0) pg MCHC 33.4 (31.0-37.0) g/dL RDW 13.7 (11.5-15.5) % Plt Count 292 (150-450) k/uL MPV 8.6 Neutrophils % 54 % Lymphocytes % 37 % Monocytes % 4 % Eosinophils % 1 % Basophils % 1 % Neutrophils # 4.1 (1.3-7.7) k/uL Lymphocytes # 2.8 (1.0-4.8) k/uL Monocytes # 0.3 (0-1.0) k/uL Eosinophils # 0.1 (0-0.7) k/uL Basophils # 0.0 (0-0.2) k/uL Sodium 142 (137-145) mmol/L Potassium 4.5 (3.5-5.1) mmol/L Chloride 109 H (98-107) mmol/L Carbon Dioxide 27 (22-30) mmol/L Anion Gap 6 mmol/L BUN 16 (7-17) mg/dL Creatinine 0.91 (0.52-1.04) mg/dL Est GFR (CKD-EPI)AfAm 88 (>60 ml/min/1.73 sqM) Est GFR (CKD-EPI)NonAf 76 (>60 ml/min/1.73 sqM) Glucose 85 (74-99) mg/dL Plasma Lactic Acid Khari (0.7-2.0) mmol/L Calcium 9.6 (8.4-10.2) mg/dL Total Bilirubin 0.3 (0.2-1.3) mg/dL AST 28 (14-36) U/L ALT 32 (4-34) U/L Alkaline Phosphatase 63 (38-126) U/L Total Protein 6.8 (6.3-8.2) g/dL Albumin 4.5 (3.5-5.0) g/dL Amylase 88 (30-110) U/L Lipase 240 (23-300) U/L Urine Color Light Yellow Urine Appearance Clear (Clear) Urine pH 6.0 (5.0-8.0) Ur Specific Wilson 1.024 (1.001-1.035) Urine Protein Trace H (Negative) Urine Glucose (UA) Negative (Negative) Urine Ketones Negative (Negative) Urine Blood Large H (Negative) Urine Nitrite Negative (Negative) Urine Bilirubin Negative (Negative) Urine Urobilinogen <2.0 (<2.0) mg/dL Ur Leukocyte Esterase Small H (Negative) Urine RBC >182 H (0-5) /hpf Urine WBC 6 H (0-5) /hpf Ur Squamous Epith Cells 2 (0-4) /hpf Urine Mucus Rare H (None) /hpf Urine HCG, Qual (Not Detectd) 07/21/24 07/21/24 Range/Units 17:10 17:10 WBC (3.8-10.6) k/uL RBC (3.80-5.40) m/uL Hgb (11.4-16.0) gm/dL Hct (34.0-46.0) % MCV (80.0-100.0) fL MCH (25.0-35.0) pg MCHC (31.0-37.0) g/dL RDW (11.5-15.5) % Plt Count (150-450) k/uL MPV Neutrophils % % Lymphocytes % % Monocytes % % Eosinophils % % Basophils % % Neutrophils # (1.3-7.7) k/uL Lymphocytes # (1.0-4.8) k/uL Monocytes # (0-1.0) k/uL Eosinophils # (0-0.7) k/uL Basophils # (0-0.2) k/uL Sodium (137-145) mmol/L Potassium (3.5-5.1) mmol/L Chloride (98-107) mmol/L Carbon Dioxide (22-30) mmol/L Anion Gap mmol/L BUN (7-17) mg/dL Creatinine (0.52-1.04) mg/dL Est GFR (CKD-EPI)AfAm (>60 ml/min/1.73 sqM) Est GFR (CKD-EPI)NonAf (>60 ml/min/1.73 sqM) Glucose (74-99) mg/dL Plasma Lactic Acid Khari 1.0 (0.7-2.0) mmol/L Calcium (8.4-10.2) mg/dL Total Bilirubin (0.2-1.3) mg/dL AST (14-36) U/L ALT (4-34) U/L Alkaline Phosphatase (38-126) U/L Total Protein (6.3-8.2) g/dL Albumin (3.5-5.0) g/dL Amylase (30-110) U/L Lipase (23-300) U/L Urine Color Urine Appearance (Clear) Urine pH (5.0-8.0) Ur Specific [place] (1.001-1.035) Urine Protein (Negative) Urine Glucose (UA) (Negative) Urine Ketones (Negative) Urine Blood (Negative) Urine Nitrite (Negative) Urine Bilirubin (Negative) Urine Urobilinogen (<2.0) mg/dL Ur Leukocyte Esterase (Negative) Urine RBC (0-5) /hpf Urine WBC (0-5) /hpf Ur Squamous Epith Cells (0-4) /hpf Urine Mucus (None) /hpf Urine HCG, Qual Not Detected (Not Detectd) Disposition Clinical Impression: Intractable abdominal pain Disposition: ADMITTED IP TO THIS [facility] Condition: Fair Time of Disposition: 22:14
[2024-07-21 17:59] LABS: ALT 32 U/L (4-34); AST 28 U/L (14-36); African American GFR (CKD) 88 (>60 ml/min/1.73 sqM); Albumin 4.5 g/dL (3.5-5.0); Alkaline Phosphatase 63 U/L (38-126); Amylase 88 U/L (30-110); Anion Gap 6 mmol/L; Blood Urea Nitrogen 16 mg/dL (7-17); Calcium 9.6 mg/dL (8.4-10.2); Carbon Dioxide 27 mmol/L (22-30); Chloride 109 mmol/L (98-107); Glucose 85 mg/dL (74-99); Lipase 240 U/L (23-300); Non-African American GFR(CKD) 76 (>60 ml/min/1.73 sqM); Potassium 4.5 mmol/L (3.5-5.1); Sodium 142 mmol/L (137-145); Total Bilirubin 0.3 mg/dL (0.2-1.3); Total Protein 6.8 g/dL (6.3-8.2)
--- NOTE | 2024-07-21 19:27 | CT ---
EXAMINATION TYPE: CT abdomen pelvis w con CT DLP: 529.5 mGycm, Automated exposure control for dose reduction was used. DATE OF EXAM: 07/21/2024 6:53 PM COMPARISON: None CLINICAL INDICATION: Female, 43 years old with history of abdominal pain; RLQ pain TECHNIQUE: Axial CT abdomen pelvis w con;Sagittal and coronal reformats were created on a separate w orkstation. Contrast used:100 ml mL of Isovue 300 with IV Contrast, (none if empty) Oral contrast used: without Oral Contrast (none if empty) FINDINGS: LOWER CHEST: Unremarkable ABDOMEN LIVER: Unremarkable GALLBLADDER AND BILE DUCTS: Unremarkable. PANCREAS: Unremarkable. SPLEEN: Unremarkable. ADRENAL GLANDS: Unremarkable. KIDNEYS AND URETERS: No evidence of hydronephrosis or renal calculus. The ureters are unremarkable. PELVIS BLADDER: Unremarkable REPRODUCTIVE: Intrauterine device seen within the endometrium. ABDOMEN & PELVIS STOMACH AND BOWEL: No evidence of bowel obstruction. The appendix is visualized and normal. PERITONEUM/RETROPERITONEUM: No evidence of pneumoperitoneum or free fluid. VASCULATURE: No evidence of aortic aneurysm. MUSCULOSKELETAL: No acute osseous abnormalities LYMPH NODES: No gross evidence for lymphadenopathy. SOFT TISSUE/ABDOMINAL WALL: Unremarkable IMPRESSION: 1. No acute abdominal process. No evidence for obstructive uropathy or renal calculus. The appendix is normal. 2. IUD in appropriate position.
[2024-07-21] MEDS: HYDROmorphone 1 MG/ML 1 ML SYRINGE IVP STA (20:11)
--- NOTE | 2024-07-21 21:32 | US ---
EXAMINATION TYPE: US transvaginal DATE OF EXAM: 07/21/2024 COMPARISON: NONE CLINICAL INDICATION: Female, 43 years old with history of R pelvic pain; Pain TECHNIQUE: Transvaginal (TV). EXAM MEASUREMENTS: Uterus: 9.0 x 4.2 x cm Endometrial Stripe: .5 cm 1. Uterus: Anteverted Nabothian cysts seen 2. Endometrium: IUD visualized 3. Right Ovary: Obscured by overlying bowel gas 4. Left Ovary: Obscured by overlying bowel gas 5. Bilateral Adnexa: wnl 6. Posterior cul-de-sac: wnl IMPRESSION: 1. No evidence for acute process. 2. IUD within the endometrium.
[2024-07-21] MEDS ORDERED: NALOXONE 0.4 MG/ML 1 ML VIAL IV PRN (22:11)
[2024-07-21] MEDS ORDERED: KETOROLAC 15 MG/ML 1 ML VIAL IVP PRN (22:11)
[2024-07-21] MEDS ORDERED: HYDROmorphone 1 MG/ML 1 ML SYRINGE IVP PRN (22:11)
[2024-07-21] MEDS: SODIUM CHLORIDE 0.9% 1,000 ML IV SCH (23:24)
[2024-07-21] MEDS: ONDANSETRON 4 MG/2 ML VIAL IVP PRN (23:24)
[2024-07-21] MEDS ORDERED: ACETAMINOPHEN TAB 500 MG TAB PO PRN (23:36)
[2024-07-22] MEDS: LACTATED RINGERS 1,000 ML IV SCH (00:52)
[2024-07-22] MEDS: IBUPROFEN IV 800 MG in SODIUM CHLORIDE 0.9% 250 ML IV PRN (01:17)
[2024-07-22] MEDS: ACETAMINOPHEN IV (For NPO) 1,000 MG in EMPTY BAG 1 BAG IVPB PRN (04:33)
[2024-07-22] MEDS: HYDROmorphone 0.5 MG/0.5 ML SYRINGE IM PRN (06:57)
--- NOTE | 2024-07-22 08:06 | US ---
EXAMINATION TYPE: US transvaginal DATE OF EXAM: 07/22/2024 COMPARISON: 07/21/24, CT: 07/21/24 CLINICAL INDICATION: Female, 43 years old with history of RLQ pain; RLQ pain TECHNIQUE: Transvaginal (TV). Date of LMP: spotting right now EXAM MEASUREMENTS: Uterus: 8.4 x 5.3 x 4.0 cm Endometrial Stripe: 0.4 cm Right Ovary: not seen Left Ovary: Not seen 1. Uterus: Anteverted wnl 2. Endometrium: wnl, IUD in place 3. Right Ovary: Not seen due to excessive bowel gas 4. Left Ovary: Not seen due to excessive bowel gas 5. Bilateral Adnexa: Vessels in bilateral adnexas appear dilated 6. Posterior cul-de-sac: moderate amount of free fluid seen IMPRESSION: 1. IUD device and small nabothian cysts otherwise unremarkable uterus. 2. Nonvisualization of the ovaries due to overlying bowel gas. 3. Interval development of moderate fluid within the cul-de-sac.
--- NOTE | 2024-07-22 08:39 | P.HPOB ---
History of Present Illness H&P Date: 07/22/24 Chief Complaint: Right mid abdomen pain 43-year-old 4 para 4 presented to the emergency department last evening with complaints of right lower quadrant pain. Patient states pain began yesterday, patient states she started having some diarrhea and an episode of dysuria. Patient went to an urgent care and was referred to the emergency department to rule out appendicitis. CT scan was performed with no acute process appreciated, ultrasound was performed with nonvisualization of the ovaries secondary to increased bowel gas. Patient has an IUD in place which she is scheduled to have removed on July 25. Patient denies nausea or vomiting. She is having light vaginal spotting. Patient denies fevers or chills. She does see Dr. Bell for primary care, she takes Satin twice daily for chronic back pain. 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, CVA/TIA Additional Past Medical History / Comment(s): Narcolepsy, UTI History of Any Multi-Drug Resistant Organisms: None Reported Past Surgical History: Hernia Repair Additional Past Surgical History / Comment(s): Bilateral inguinal hernia repairs Past Anesthesia/Blood Transfusion Reactions: No Reported Reaction Past Psychological History: Bipolar, Depression Smoking Status: Vaper Past Alcohol Use History: None Reported Past Drug Use History: None Reported - Past Family History Mother Family Medical History: Cancer Additional Family Medical History / Comment(s): Mother of lung cancer with history of smoking. Father Additional Family Medical History / Comment(s): Father from suicide. He had history of alcoholism and drug abuse. Sister(s) Additional Family Medical History / Comment(s): She has one sister with no major medical problems. Brother(s) Additional Family Medical History / Comment(s): She has 2 half brothers with no major medical problems. Daughter(s) Additional Family Medical History / Comment(s): She has 4 children. One daughter at 20, son 17, son 15, son 9. Youngest has autism. Medications and Allergies Home Medications Medication Instructions Recorded Confirmed Type Dextroamphetamine/Amphetamine 20 mg PO BID@0500,1400 02/02/17 12/16/23 History [Adderall] Metoprolol Tartrate [Lopressor] 25 mg PO BID #60 tablet 12/10/23 12/16/23 Rx Naproxen [Naprosyn] 500 mg PO BID PRN 12/16/23 07/22/24 History ARIPiprazole 07/22/24 History Butalb/APAP/Caff 50-325-40Mg 07/22/24 History [Fioricet 50-325-40] HYDROcodone/APAP 7.5-325MG [Satin 1 tab PO Q4H PRN 07/22/24 07/22/24 History 7.5-325] Mirtazapine [Remeron] 15 mg PO DAILY 07/22/24 07/22/24 History buPROPion HCL [buPROPion HCL XL] 300 mg PO DAILY 07/22/24 07/22/24 History Allergies Allergy/AdvReac Type Severity Reaction Status Date / Time cephalexin monohydrate Allergy Mild Dyspnea Verified 07/21/24 16:57 [From Keflex] Exam Osteopathic Statement: *. No significant issues noted on an osteopathic structural exam other than those noted in the History and Physical/Consult. Vital Signs Temp Pulse Pulse Resp BP BP Pulse Ox 07/21/24 23:30 50 L 16 119/66 100 07/21/24 23:12 98.8 F 83 18 146/76 07/21/24 21:23 55 L 16 145/90 100 07/21/24 20:12 55 L 19 141/82 95 07/21/24 18:25 53 L 16 129/87 99 07/21/24 16:53 98.3 F 81 16 129/77 99 Intake and Output 07/21/24 07/22/24 07/22/24 22:59 06:59 14:59 Other: # Voids 2 Weight 54.431 kg 54.431 kg Targeted physical exam is performed this date General This is a well-nourished well-developed female in no acute distress, breathing is noted to be nonlabored, abdomen is soft and nontender on bimanual exam the uterus is mobile no adnexal masses are appreciated no abdominal guarding is appreciated during exam. Results Result Diagrams: 07/21/24 17:10 07/21/24 17:10 Abnormal Lab Results - Last 24 Hours (Table) 07/21/24 07/21/24 Range/Units 17:10 17:10 Chloride 109 H (98-107) mmol/L Urine Protein Trace H (Negative) Urine Blood Large H (Negative) Ur Leukocyte Esterase Small H (Negative) Urine RBC >182 H (0-5) /hpf Urine WBC 6 H (0-5) /hpf Urine Mucus Rare H (None) /hpf Assessment and Plan (1) Abdominal pain Current Visit: Yes Status: Acute Code(s): R10.9 - UNSPECIFIED ABDOMINAL PAIN SNOMED Code(s): 95930604 Plan: 43-year-old female observed overnight for pain control secondary to abdominal pain. Exam is benign this morning, discussed with patient possible etiology of her pain including bowel. Patient states understanding and is desirous of discharge home. Patient is to follow-up with Dr. Bell for close follow-up.
--- NOTE | 2024-07-22 08:41 | P.DS ---
Providers Date of admission: 07/21/24 22:12 Expected date of discharge: 07/22/24 Attending physician: Tiffany Campos Primary care physician: Abdiel Bell - Discharge Diagnosis(es) (1) Abdominal pain Current Visit: Yes Status: Acute Hospital Course: 43-year-old female that presented to the hospital yesterday after being seen at urgent care. Patient went to urgent care after noted diarrhea, 1 episode of dysuria. Patient felt she might have food poisoning. Patient denied fevers or chills. Once in the emergency department CAT scan was performed where no acute process was appreciated. Appendix was visualized and felt to be normal. Ultrasound was performed given the nature of her pain ovaries were not visualized secondary to overlying bowel gas. Patient was observed overnight for pain control. Patient states she is slightly improved this morning. She denies nausea or vomiting this morning. Ultrasound was performed again this morning with once again nonvisualization of the ovaries. Patient is examined and on abdominal exam abdomen is soft and nontender no guarding is appreciated on bimanual exam no guarding is noted uterus is mobile no adnexal masses are appreciated ovaries are not palpated. Patient Condition at Discharge: Fair Plan - Discharge Summary New Discharge Prescriptions: No Action Dextroamphetamine/Amphetamine [Adderall] 20 mg PO BID@0500,1400 Metoprolol Tartrate [Lopressor] 25 mg PO BID #60 tablet buPROPion HCL [buPROPion HCL XL] 300 mg PO DAILY Butalb/APAP/Caff 50-325-40Mg [Fioricet 50-325-40] Mirtazapine [Remeron] 15 mg PO DAILY Naproxen [Naprosyn] 500 mg PO BID PRN PRN Reason: Pain HYDROcodone/APAP 7.5-325MG [[place] 7.5-325] 1 tab PO Q4H PRN PRN Reason: Moderate To Severe Pain (4-10) ARIPiprazole Discharge Medication List Dextroamphetamine/Amphetamine [Adderall] 20 mg PO BID@0500,1400 02/02/17 [History] Metoprolol Tartrate [Lopressor] 25 mg PO BID #60 tablet 12/10/23 [Rx] Naproxen [Naprosyn] 500 mg PO BID PRN 12/16/23 [History] ARIPiprazole 07/22/24 [History] Butalb/APAP/Caff 50-325-40Mg [Fioricet 50-325-40] 07/22/24 [History] HYDROcodone/APAP 7.5-325MG [[place] 7.5-325] 1 tab PO Q4H PRN 07/22/24 [History] Mirtazapine [Remeron] 15 mg PO DAILY 07/22/24 [History] buPROPion HCL [buPROPion HCL XL] 300 mg PO DAILY 07/22/24 [History] Follow up Appointment(s)/Referral(s): bAdiel Bell MD [Primary Care Provider] - 1-2 days Discharge Disposition: HOME SELF-CARE
[2024-07-22 09:40] VITALS: BP 134/71; PULSE 70; RESP 17; TEMP 97.9
== END 2024-07-22 10:30 | disposition home or self-care (01) ==
LOC: EC 16:52 → 4FBP 22:12
PROVIDERS: ADMIT Obstetrics & Gynecology Obstetrics; ATTEND Obstetrics & Gynecology Obstetrics
DX: R10.31 Right lower quadrant pain (principal); N92.4 Excessive bleeding in the premenopausal period; R19.7 Diarrhea, unspecified; R30.0 Dysuria; R11.0 Nausea; R31.9 Hematuria, unspecified; Z79.899 Other long term (current) drug therapy; Z88.1 Allergy status to other antibiotic agents; F17.290 Nicotine dependence, other tobacco product, uncomplicated; Z97.5 Presence of (intrauterine) contraceptive device
CPT/HCPCS: 36415; 74177; 76830; 80053; 81001; 81025; 82150; 83605; 83690; 85025; 96361; 96365; 96372; 96375; 96376; 99284; 99285

== ENCOUNTER 2024-09-19 09:49 | Inpatient (IN) | payer OTHER ==
--- NOTE | 2024-09-19 10:28 | ED ---
Overdose HPI - General Chief Complaint: Overdose Stated Complaint: Mental health eval. Time Seen by Provider: 09/19/24 09:59 Source: patient, EMS, RN notes reviewed Mode of arrival: ambulatory Limitations: no limitations - History of Present Illness Initial Comments: This is a 43-year-old female who presents to the emergency department for overdose and psychiatric valuation. Patient brought in by [facility] for overdose. States that she took a handful of approximately 20 naproxen tablets and a handful of her tizanidine. Unsure what the tizanidine dose was. Believes that she may have had 30 to 60 tablets of this left. Patient is very tearful and saying that she wanted to and still feels this way. She continues saying "I do not want to choose between my children" but does not elaborate. Denies any homicidal ideations. MD Complaint: intentional overdose - Related Data Home Medications Medication Instructions Recorded Confirmed ARIPiprazole 10 mg PO HS 07/22/24 09/19/24 Butalb/APAP/Caff 50-325-40Mg 1 tab PO Q6H PRN 07/22/24 09/19/24 [Fioricet 50-325-40] Mirtazapine [Remeron] 15 mg PO DAILY PRN 07/22/24 09/19/24 buPROPion HCL [buPROPion HCL XL] 300 mg PO DAILY 07/22/24 09/19/24 tiZANidine [Zanaflex] 4 mg PO TID PRN 09/19/24 09/19/24 Allergies Allergy/AdvReac Type Severity Reaction Status Date / Time cephalexin monohydrate Allergy Mild Dyspnea Verified 09/19/24 17:05 [From Keflex] Review of Systems ROS Statement: Those systems with pertinent positive or pertinent negative responses have been documented in the HPI. ROS Other: All systems not noted in ROS Statement are negative. 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, CVA/TIA Additional Past Medical History / Comment(s): Narcolepsy, UTI History of Any Multi-Drug Resistant Organisms: None Reported Past Surgical History: Hernia Repair Additional Past Surgical History / Comment(s): Bilateral inguinal hernia repairs Past Anesthesia/Blood Transfusion Reactions: No Reported Reaction Past Psychological History: Bipolar, Depression Smoking Status: Vaper Past Alcohol Use History: None Reported Past Drug Use History: None Reported - Past Family History Mother Family Medical History: Cancer Additional Family Medical History / Comment(s): Mother of lung cancer with history of smoking. Father Additional Family Medical History / Comment(s): Father from suicide. He had history of alcoholism and drug abuse. Sister(s) Additional Family Medical History / Comment(s): She has one sister with no major medical problems. Brother(s) Additional Family Medical History / Comment(s): She has 2 half brothers with no major medical problems. Daughter(s) Additional Family Medical History / Comment(s): She has 4 children. One daughter at 20, son 17, son 15, son 9. Youngest has autism. General Exam Limitations: no limitations General appearance: alert, in distress Head exam: Present: atraumatic, normocephalic, normal inspection Eye exam: Present: normal appearance, PERRL, EOMI. Absent: scleral icterus, conjunctival injection, periorbital swelling Respiratory exam: Present: normal lung sounds bilaterally. Absent: respiratory distress, wheezes, rales, rhonchi, stridor Cardiovascular Exam: Present: normal rhythm, bradycardia Psychiatric exam: Present: depressed, flat affect, suicidal ideation Skin exam: Present: warm, dry, intact, normal color. Absent: rash Course Vital Signs 09/19/24 09/19/24 09/19/24 09:51 11:02 11:35 Temperature 98.4 F Pulse Rate 71 50 L 46 L Respiratory 17 14 14 Rate Blood Pressure 180/93 135/87 125/86 O2 Sat by Pulse 100 99 97 Oximetry 09/19/24 09/19/24 09/19/24 12:05 12:25 13:25 Temperature 97.5 F L Pulse Rate 61 45 L 41 L Respiratory 16 16 16 Rate Blood Pressure 121/90 121/98 127/85 O2 Sat by Pulse 97 97 97 Oximetry 09/19/24 09/19/24 09/19/24 14:05 14:55 15:10 Temperature Pulse Rate 35 L 41 L 48 L Respiratory 12 18 20 Rate Blood Pressure 119/81 151/80 148/90 O2 Sat by Pulse 98 98 98 Oximetry 09/19/24 09/19/24 09/19/24 15:27 16:00 17:00 Temperature Pulse Rate 75 62 55 L Respiratory Rate Blood Pressure O2 Sat by Pulse Oximetry 09/19/24 09/19/24 09/19/24 18:00 18:38 18:40 Temperature Pulse Rate 46 L 42 L 75 Respiratory Rate Blood Pressure 140/86 O2 Sat by Pulse 98 Oximetry Medical Decision Making - Medical Decision Making This is a 43 year old female who presents to the emergency department for an overdose and psychiatric evaluation. Was pt. sent in by a medical professional or institution? @ -No Did you speak to anyone other than the patient for history? @ -No Did you review nursing and triage notes? @ -Yes, and I agree, it is accurate with regards to the patient's symptoms. Were old charts reviewed? @ -No Differential Diagnosis? @ -Differential Mental Health Depression, anxiety, bipolar, psychosis, schizophrenia, borderline personality, situational depression, adjustment disorder, behavioral disorder, brain tumor, malingering, substance abuse, encephalopathy, medication reaction, dementia, hypothyroidism, degenerative neurologic disorder, lupus.... This is not meant to be all-inclusive list EKG interpreted by me (3pts min.)? @ -EKG interpreted by me demonstrating the following: Sinus bradycardia. Ventricular rate 46 bpm, CO interval 143 ms, QRS duration 80 ms, QTc 421 ms. X-rays interpreted by me (1pt min.)? @ -Not obtained CT interpreted by me (1pt min.)? @ -Not obtained U/S interpreted by me (1pt. min.)? @ -Not obtained What testing was considered but not performed? (CT, X-rays, U/S, labs)? Why? @ -None What meds were considered but not given? Why? @ -None Did you discuss the management of the patient with other professionals? @ -Yes, Dr. Jose, who advsied Atropine. Dr. Bell accepts the patient for admission to medicine. Did you reconcile home meds? @ -No Was smoking cessation discussed for >3mins.? @ -I discussed smoking cessation for greater than 3 minutes. The risk of smoking were discussed with the patient including but not limited to risks of cancer, stroke, coronary artery disease and COPD. Also discussed with patient were multiple methods of quitting smoking. Lastly we discussed the financial cost of smoking. Was critical care preformed (if so, how long)? @ -Yes, >35 minutes Were there social determinants of health that impacted care today? How? (Homelessness, low income, unemployed, alcoholism, drug addiction, transportation, low edu. Level, literacy, decrease access to med. care, fci, rehab)? @ -No Was there de-escalation of care discussed even if they declined? (Discuss DNR or withdrawal of care, Hospice)? @ -No What co-morbidities impacted this encounter? (DM, HTN, Smoking, COPD, CAD, Cancer, CVA, Hep., AIDS, mental health diagnosis, sleep apnea, morbid obesity)? @ -Depressive disorder, bipolar disorder, smoking Was patient admitted / discharged? @ -Admitted. Lab work demonstrates leukocytosis with a white blood cell count of 12.9 and signs of dehydration. Alcohol and acetaminophen levels negative. Salicylate level 1.4. Nursing staff contacted poison control. They advised a repeat BMP and salicylate level after 2 hours. Salicylate level then returned negative and BMP improved. After being in the emergency department for several hours, she did start to become bradycardic with her heart rate dropping into the mid 30s. This was attributed to the overdose of Zanaflex. Pacer pads were applied to her chest, but not turned on. Case discussed with cardiology who advised 0.5 mg of atropine. Atropine administered and the patient had a positive response. Heart rate increased to the 70s to 80s. After about 2 to 2.5 hours, she started to become bradycardic again was given another 0.5 mg of atropine. She again had a positive response and heart rate increased to the 70s to 80s. Poison control did not have anything else to offer at that point. Given the bradycardia, patient admitted to medicine for further care until she can be medically cleared for psychiatric evaluation. Cardiology and psychiatry listed as consult. Suicide precautions initiated as well. Case discussed with ED attending, Dr. Mendsoa. Undiagnosed new problem with uncertain prognosis? @ -None Drug Therapy requiring intensive monitoring for toxicity (Heparin, Nitro, Insulin, Cardizem)? @ -None Were any procedures done? @ -None Diagnosis/symptom? @ -Intentional naproxen overdose, intentional muscle relaxant overdose, bradycardia, suicidal ideations Acute, or Chronic, or Acute on Chronic? @ -Acute Uncomplicated (without systemic symptoms) or Complicated (systemic symptoms)? @ -Complicated Side effects of treatment? @ -None Exacerbation, Progression, or Severe Exacerbation] @ -Not applicable Poses a threat to life or bodily function? @ -Yes, the suicidal ideations can lead to - Lab Data Result diagrams: 09/19/24 10:19 09/19/24 12:45 Lab Results 09/19/24 09/19/24 09/19/24 Range/Units 10:19 10:19 10:19 WBC 12.9 H (3.8-10.6) k/uL RBC 4.94 (3.80-5.40) m/uL Hgb 14.9 (11.4-16.0) gm/dL Hct 44.6 (34.0-46.0) % MCV 90.3 (80.0-100.0) fL MCH 30.1 (25.0-35.0) pg MCHC 33.3 (31.0-37.0) g/dL RDW 11.9 (11.5-15.5) % Plt Count 262 (150-450) k/uL MPV 8.2 Neutrophils % 74 % Lymphocytes % 19 % Monocytes % 4 % Eosinophils % 1 % Basophils % 1 % Neutrophils # 9.5 H (1.3-7.7) k/uL Lymphocytes # 2.5 (1.0-4.8) k/uL Monocytes # 0.6 (0-1.0) k/uL Eosinophils # 0.1 (0-0.7) k/uL Basophils # 0.1 (0-0.2) k/uL PT 12.2 (10.0-12.5) sec INR 1.1 (<1.2) Sodium (137-145) mmol/L Potassium (3.5-5.1) mmol/L Chloride (98-107) mmol/L Carbon Dioxide (22-30) mmol/L Anion Gap mmol/L BUN (7-17) mg/dL Creatinine (0.52-1.04) mg/dL Est GFR (CKD-EPI)AfAm (>60 ml/min/1.73 sqM) Est GFR (CKD-EPI)NonAf (>60 ml/min/1.73 sqM) Glucose (74-99) mg/dL Plasma Lactic Acid Khari (0.7-2.0) mmol/L Calcium (8.4-10.2) mg/dL Total Bilirubin (0.2-1.3) mg/dL AST (14-36) U/L ALT (4-34) U/L Alkaline Phosphatase (38-126) U/L Total Protein (6.3-8.2) g/dL Albumin (3.5-5.0) g/dL Lipase (23-300) U/L Urine Color Yellow Urine Appearance Clear (Clear) Urine pH 6.0 (5.0-8.0) Ur Specific [place] 1.038 H (1.001-1.035) Urine Protein 1+ H (Negative) Urine Glucose (UA) Negative (Negative) Urine Ketones Negative (Negative) Urine Blood Negative (Negative) Urine Nitrite Negative (Negative) Urine Bilirubin Negative (Negative) Urine Urobilinogen 2.0 (<2.0) mg/dL Ur Leukocyte Esterase Trace H (Negative) Urine WBC 1 (0-5) /hpf Ur Squamous Epith Cells 3 (0-4) /hpf Amorphous Sediment Rare H (None) /hpf Hyaline Casts 5 H (0-2) /lpf Granular Casts 1 (0) /lpf Urine Mucus Few H (None) /hpf Urine HCG, Qual (Not Detectd) Salicylates mg/dL Urine Opiates Screen Not Detected (NotDetected) Ur Oxycodone Screen Not Detected (NotDetected) Urine Methadone Screen Not Detected (NotDetected) Acetaminophen ug/mL Ur Barbiturates Screen Detected H (NotDetected) U Tricyclic Antidepress Not Detected (NotDetected) Ur Phencyclidine Scrn Not Detected (NotDetected) Ur Amphetamines Screen Not Detected (NotDetected) U Methamphetamines Scrn Not Detected (NotDetected) U Benzodiazepines Scrn Not Detected (NotDetected) Urine Cocaine Screen Not Detected (NotDetected) U Marijuana (THC) Screen Not Detected (NotDetected) Serum Alcohol mg/dL 09/19/24 09/19/24 09/19/24 Range/Units 10:19 10:19 10:19 WBC (3.8-10.6) k/uL RBC (3.80-5.40) m/uL Hgb (11.4-16.0) gm/dL Hct (34.0-46.0) % MCV (80.0-100.0) fL MCH (25.0-35.0) pg MCHC (31.0-37.0) g/dL RDW (11.5-15.5) % Plt Count (150-450) k/uL MPV Neutrophils % % Lymphocytes % % Monocytes % % Eosinophils % % Basophils % % Neutrophils # (1.3-7.7) k/uL Lymphocytes # (1.0-4.8) k/uL Monocytes # (0-1.0) k/uL Eosinophils # (0-0.7) k/uL Basophils # (0-0.2) k/uL PT (10.0-12.5) sec INR (<1.2) Sodium 134 L (137-145) mmol/L Potassium 4.6 (3.5-5.1) mmol/L Chloride 103 (98-107) mmol/L Carbon Dioxide 21 L (22-30) mmol/L Anion Gap 10 mmol/L BUN 34 H (7-17) mg/dL Creatinine 1.10 H (0.52-1.04) mg/dL Est GFR (CKD-EPI)AfAm 70 (>60 ml/min/1.73 sqM) Est GFR (CKD-EPI)NonAf 61 (>60 ml/min/1.73 sqM) Glucose 187 H (74-99) mg/dL Plasma Lactic Acid Khari 1.2 (0.7-2.0) mmol/L Calcium 9.9 (8.4-10.2) mg/dL Total Bilirubin 1.0 (0.2-1.3) mg/dL AST 30 (14-36) U/L ALT 24 (4-34) U/L Alkaline Phosphatase 84 (38-126) U/L Total Protein 7.2 (6.3-8.2) g/dL Albumin 4.5 (3.5-5.0) g/dL Lipase 116 (23-300) U/L Urine Color Urine Appearance (Clear) Urine pH (5.0-8.0) Ur Specific [place] (1.001-1.035) Urine Protein (Negative) Urine Glucose (UA) (Negative) Urine Ketones (Negative) Urine Blood (Negative) Urine Nitrite (Negative) Urine Bilirubin (Negative) Urine Urobilinogen (<2.0) mg/dL Ur Leukocyte Esterase (Negative) Urine WBC (0-5) /hpf Ur Squamous Epith Cells (0-4) /hpf Amorphous Sediment (None) /hpf Hyaline Casts (0-2) /lpf Granular Casts (0) /lpf Urine Mucus (None) /hpf Urine HCG, Qual Not Detected (Not Detectd) Salicylates 1.4 mg/dL Urine Opiates Screen (NotDetected) Ur Oxycodone Screen (NotDetected) Urine Methadone Screen (NotDetected) Acetaminophen <10.0 ug/mL Ur Barbiturates Screen (NotDetected) U Tricyclic Antidepress (NotDetected) Ur Phencyclidine Scrn (NotDetected) Ur Amphetamines Screen (NotDetected) U Methamphetamines Scrn (NotDetected) U Benzodiazepines Scrn (NotDetected) Urine Cocaine Screen (NotDetected) U Marijuana (THC) Screen (NotDetected) Serum Alcohol <10 mg/dL 09/19/24 Range/Units 12:45 WBC (3.8-10.6) k/uL RBC (3.80-5.40) m/uL Hgb (11.4-16.0) gm/dL Hct (34.0-46.0) % MCV (80.0-100.0) fL MCH (25.0-35.0) pg MCHC (31.0-37.0) g/dL RDW (11.5-15.5) % Plt Count (150-450) k/uL MPV Neutrophils % % Lymphocytes % % Monocytes % % Eosinophils % % Basophils % % Neutrophils # (1.3-7.7) k/uL Lymphocytes # (1.0-4.8) k/uL Monocytes # (0-1.0) k/uL Eosinophils # (0-0.7) k/uL Basophils # (0-0.2) k/uL PT (10.0-12.5) sec INR (<1.2) Sodium 135 L (137-145) mmol/L Potassium 4.4 (3.5-5.1) mmol/L Chloride 105 (98-107) mmol/L Carbon Dioxide 21 L (22-30) mmol/L Anion Gap 9 mmol/L BUN 34 H (7-17) mg/dL Creatinine 0.99 (0.52-1.04) mg/dL Est GFR (CKD-EPI)AfAm 80 (>60 ml/min/1.73 sqM) Est GFR (CKD-EPI)NonAf 69 (>60 ml/min/1.73 sqM) Glucose 135 H (74-99) mg/dL Plasma Lactic Acid Khari (0.7-2.0) mmol/L Calcium 9.0 (8.4-10.2) mg/dL Total Bilirubin (0.2-1.3) mg/dL AST (14-36) U/L ALT (4-34) U/L Alkaline Phosphatase (38-126) U/L Total Protein (6.3-8.2) g/dL Albumin (3.5-5.0) g/dL Lipase (23-300) U/L Urine Color Urine Appearance (Clear) Urine pH (5.0-8.0) Ur Specific [place] (1.001-1.035) Urine Protein (Negative) Urine Glucose (UA) (Negative) Urine Ketones (Negative) Urine Blood (Negative) Urine Nitrite (Negative) Urine Bilirubin (Negative) Urine Urobilinogen (<2.0) mg/dL Ur Leukocyte Esterase (Negative) Urine WBC (0-5) /hpf Ur Squamous Epith Cells (0-4) /hpf Amorphous Sediment (None) /hpf Hyaline Casts (0-2) /lpf Granular Casts (0) /lpf Urine Mucus (None) /hpf Urine HCG, Qual (Not Detectd) Salicylates <1.0 mg/dL Urine Opiates Screen (NotDetected) Ur Oxycodone Screen (NotDetected) Urine Methadone Screen (NotDetected) Acetaminophen ug/mL Ur Barbiturates Screen (NotDetected) U Tricyclic Antidepress (NotDetected) Ur Phencyclidine Scrn (NotDetected) Ur Amphetamines Screen (NotDetected) U Methamphetamines Scrn (NotDetected) U Benzodiazepines Scrn (NotDetected) Urine Cocaine Screen (NotDetected) U Marijuana (THC) Screen (NotDetected) Serum Alcohol mg/dL Critical Care Time Critical Care Time: Yes Critical Care Time: >35 minutes Disposition Clinical Impression: Intentional naproxen overdose, Overdose of skeletal muscle relaxant, Bradycardia, Suicidal ideations Disposition: ADMITTED IP TO THIS HOSP
[2024-09-19 10:53] LABS: Basophils # (A) 0.1 k/uL (0-0.2); Basophils % (A) 1 %; Eosinophils # (A) 0.1 k/uL (0-0.7); Eosinophils % (A) 1 %; HCT 44.6 % (34.0-46.0); HGB 14.9 gm/dL (11.4-16.0); Lymphocytes # (A) 2.5 k/uL (1.0-4.8); Lymphocytes % (A) 19 %; MCH 30.1 pg (25.0-35.0); MCHC 33.3 g/dL (31.0-37.0); MCV 90.3 fL (80.0-100.0); Mean Platelet Volume 8.2; Monocytes # (A) 0.6 k/uL (0-1.0); Monocytes % (A) 4 %; Neutrophils # (A) 9.5 k/uL (1.3-7.7); Neutrophils % (A) 74 %; Platelet Count 262 k/uL (150-450); RBC 4.94 m/uL (3.80-5.40); RDW 11.9 % (11.5-15.5); WBC 12.9 k/uL (3.8-10.6)
[2024-09-19] MEDS: PANTOPRAZOLE 40 MG/10 ML VIAL IVP ONE (10:58)
[2024-09-19] MEDS: SODIUM CHLORIDE 0.9% 1,000 ML IV STA (10:58)
[2024-09-19 11:02] LABS: ALT 24 U/L (4-34); AST 30 U/L (14-36); Acetaminophen <10.0 ug/mL; African American GFR (CKD) 70 (>60 ml/min/1.73 sqM); Albumin 4.5 g/dL (3.5-5.0); Alcohol <10 mg/dL; Alkaline Phosphatase 84 U/L (38-126); Anion Gap 10 mmol/L; Blood Urea Nitrogen 34 mg/dL (7-17); Calcium 9.9 mg/dL (8.4-10.2); Carbon Dioxide 21 mmol/L (22-30); Chloride 103 mmol/L (98-107); Glucose 187 mg/dL (74-99); Lipase 116 U/L (23-300); Non-African American GFR(CKD) 61 (>60 ml/min/1.73 sqM); Potassium 4.6 mmol/L (3.5-5.1); Salicylate 1.4 mg/dL; Sodium 134 mmol/L (137-145); Total Protein 7.2 g/dL (6.3-8.2)
[2024-09-19 11:16] LABS: INR 1.1 (<1.2); Prothrombin Time 12.2 sec (10.0-12.5)
[2024-09-19 12:46] LABS: Amorphous Sediment,Urine Rare /hpf; Appearance,Urine Clear (Clear); Bilirubin,Urine Negative (Negative); Blood,Urine Negative (Negative); Color,Urine Yellow; Glucose,Urine (UA) Negative (Negative); Granular Casts,Urine 1 /lpf (0); Hyaline Casts,Urine 5 /lpf (0-2); Ketones,Urine Negative (Negative); Leukocyte Esterase,Urine Trace (Negative); Mucus,Urine Few /hpf; Nitrite,Urine Negative (Negative); Protein,Urine 1+ (Negative); Specific Gravity,Urine 1.038 (1.001-1.035); Squamous Epithelial Cell,Urine 3 /hpf (0-4); WBC,Urine 1 /hpf (0-5)
[2024-09-19 12:56] LABS: Amphetamine Screen,Urine Not Detected (NotDetected); Barbiturate Screen,Urine Detected (NotDetected); Benzodiazepines Screen,Urine Not Detected (NotDetected); Cocaine Screen,Urine Not Detected (NotDetected); Methadone Screen, Urine Not Detected (NotDetected); Opiate Screen,Urine Not Detected (NotDetected); Oxycodone Screen, Urine Not Detected (NotDetected); Phencyclidine Screen,Urine Not Detected (NotDetected); Tricyclic Antidepressant,Urine Not Detected (NotDetected); Urn Cannabinoid Scrn Not Detected (NotDetected)
[2024-09-19 13:08] LABS: African American GFR (CKD) 80 (>60 ml/min/1.73 sqM); Anion Gap 9 mmol/L; Blood Urea Nitrogen 34 mg/dL (7-17); Carbon Dioxide 21 mmol/L (22-30); Chloride 105 mmol/L (98-107); Glucose 135 mg/dL (74-99); Non-African American GFR(CKD) 69 (>60 ml/min/1.73 sqM); Potassium 4.4 mmol/L (3.5-5.1); Salicylate <1.0 mg/dL; Sodium 135 mmol/L (137-145)
[2024-09-19] MEDS ORDERED: NALOXONE 0.4 MG/ML 1 ML VIAL IV PRN (14:47)
[2024-09-19] MEDS ORDERED: ONDANSETRON 4 MG/2 ML VIAL IVP PRN (14:47)
[2024-09-19] MEDS: ATROPINE SULFATE 0.1 MG/ML 10ML SYRINGE IV STA ×2 (15:05→18:38)
[2024-09-19] MEDS: SODIUM CHLORIDE 0.9% 1,000 ML IV SCH (15:10)
[2024-09-19] MEDS: HALOPERIDOL LACTATE 5 MG/ML 1 ML VIAL IM PRN (20:05)
[2024-09-20] MEDS: SODIUM CHLORIDE 0.9% 1,000 ML IV ONE (01:59)
[2024-09-20 04:52] LABS: ALT 20 U/L (4-34); AST 32 U/L (14-36); African American GFR (CKD) >90 (>60 ml/min/1.73 sqM); Alkaline Phosphatase 52 U/L (38-126); Anion Gap 4 mmol/L; Blood Urea Nitrogen 28 mg/dL (7-17); Calcium 8.1 mg/dL (8.4-10.2); Carbon Dioxide 17 mmol/L (22-30); Chloride 114 mmol/L (98-107); Glucose 77 mg/dL (74-99); Magnesium 1.7 mg/dL (1.6-2.3); Non-African American GFR(CKD) 86 (>60 ml/min/1.73 sqM); Potassium 4.3 mmol/L (3.5-5.1); Sodium 135 mmol/L (137-145); Total Bilirubin 0.6 mg/dL (0.2-1.3); Total Protein 5.2 g/dL (6.3-8.2)
[2024-09-20] MEDS: MAGNESIUM SULFATE-D5W PMX 1 GM in DEXTROSE/WATER 1 100ML.BAG IVPB SCH (06:40)
[2024-09-20] MEDS: DOPamine DRIP 800 MG in DEXTROSE/WATER 1 250ML.BAG IV SCH (08:47)
[2024-09-20] MEDS: PANTOPRAZOLE 40 MG/10 ML VIAL IV SCH (10:36)
--- NOTE | 2024-09-20 11:12 | P.CRDCN ---
History of Present Illness History of present illness: HISTORY OF PRESENT ILLNESS: This is a 43-year-old female with a past medical history significant for depression, bipolar disorder, hypertension, and nicotine dependence. Patient does not follow with a milk route deliverer. We have been asked to see the patient in consultation for bradycardia. Patient examined at the bedside in the emergency room. Patient is admitted to the hospital due to a suicide attempt. Patient states that she took approximately 20 naproxen and a handful of Zanaflex. Patient's vital signs were stable upon admission. However overnight the patient did develop bradycardia. She required atropine x 2 in the emergency room. She remains bradycardic this morning with a heart rate in the 40s50s. She also was now hypotensive with a systolic blood pressure in the 70s. She does report feeling dizzy and lightheaded this morning. She reports that she takes metoprolol on an outpatient basis for hypertension. She states the last time she took this medication was 2 days ago she believes. She states that she did not overdose on her metoprolol. DIAGNOSTICS: - EKG reveals sinus bradycardia - Laboratory data: WBC 12.9. Hemoglobin 14.9. Platelet count 262. Sodium 135. Potassium 4.3. BUN 28. Creatinine 0.83. Magnesium 1.7. - Current home cardiac medications include metoprolol. Dose unknown. - Most recent echocardiogram obtained in 2018 revealed ejection fraction 55 to 60%, trace MR REVIEW OF SYSTEMS: At the time of my exam: CONSTITUTIONAL: Denies fever or chills. HEENT: Denies blurred vision, vision changes, or eye pain. Denies hemoptysis CARDIOVASCULAR: Denies chest pain. Denies orthopnea. Denies PND. Denies palpitations RESPIRATORY: Denies shortness of breath. GASTROINTESTINAL: Denies abdominal pain. Denies nausea or vomiting. HEMATOLOGIC: Denies bleeding disorders. GENITOURINARY: Denies any blood in urine. SKIN: Denies pruitis. Denies rash. PHYSICAL EXAM: VITAL SIGNS: Reviewed. GENERAL: Well-developed in no acute distress. HEENT: Head is normocephalic. Pupils are equal, round. Sclerae anicteric. Mucous membranes of the mouth are moist. Neck supple. No JVD or thyromegaly LUNGS: Respirations even and unlabored. Lungs essentially clear to auscultation bilaterally. HEART: Bradycardic. regular rate and rhythm. S1 and S2 heard. ABDOMEN: Soft. Nondistended. Nontender. EXTREMITIES: Normal range of motion. No clubbing or cyanosis. Peripheral pulses intact. No lower extremity edema NEUROLOGIC: Awake and alert. Oriented x 3. ASSESSMENT: Suicide attempt Intentional overdose with Zanaflex and naproxen Bradycardia and hypotension, secondary to Zanaflex overdose Dizziness and lightheadedness, secondary to bradycardia and hypotension History of hypertension, on metoprolol outpatient, dose unknown History of Graves' disease History of depression History bipolar disorder Nicotine dependence PLAN: Obtain 2D echo to assess cardiac structure and function Check TSH Avoid any AV zaid blocking agents Begin dopamine infusion. Titrate to maintain MAP of 65. Continue telemetry monitoring Further recommendations pending patient course Nurse practitioner note has been reviewed by physician. Signing provider agrees with the documented findings, assessment, and plan of care documented by BENDER HAND as a scribe. Past Medical History Past Medical History: CVA/TIA Additional Past Medical History / Comment(s): Narcolepsy, UTI History of Any Multi-Drug Resistant Organisms: None Reported Past Surgical History: Hernia Repair Additional Past Surgical History / Comment(s): Bilateral inguinal hernia repairs Past Anesthesia/Blood Transfusion Reactions: No Reported Reaction Past Psychological History: Bipolar, Depression Smoking Status: Vaper Past Alcohol Use History: None Reported Past Drug Use History: None Reported - Past Family History Mother Family Medical History: Cancer Additional Family Medical History / Comment(s): Mother of lung cancer with history of smoking. Father Additional Family Medical History / Comment(s): Father from suicide. He had history of alcoholism and drug abuse. Sister(s) Additional Family Medical History / Comment(s): She has one sister with no major medical problems. Brother(s) Additional Family Medical History / Comment(s): She has 2 half brothers with no major medical problems. Daughter(s) Additional Family Medical History / Comment(s): She has 4 children. One daughter at 20, son 17, son 15, son 9. Youngest has autism. Medications and Allergies Home Medications Medication Instructions Recorded Confirmed Type ARIPiprazole 10 mg PO HS 07/22/24 09/19/24 History Butalb/APAP/Caff 50-325-40Mg 1 tab PO Q6H PRN 07/22/24 09/19/24 History [Fioricet 50-325-40] Mirtazapine [Remeron] 15 mg PO DAILY PRN 07/22/24 09/19/24 History buPROPion HCL [buPROPion HCL XL] 300 mg PO DAILY 07/22/24 09/19/24 History tiZANidine [Zanaflex] 4 mg PO TID PRN 09/19/24 09/19/24 History Allergies Allergy/AdvReac Type Severity Reaction Status Date / Time cephalexin monohydrate Allergy Mild Dyspnea Verified 09/19/24 17:05 [From Keflex] Physical Exam Vitals: Vital Signs Temp Pulse Resp BP Pulse Ox 09/20/24 09:59 75 18 101/53 97 09/20/24 09:19 75 18 129/72 98 09/20/24 09:00 75 18 81/42 98 09/20/24 08:45 49 L 18 114/104 98 09/20/24 08:30 64 18 93/44 98 09/20/24 08:15 51 L 18 85/42 98 09/20/24 08:00 42 L 18 74/42 98 09/20/24 07:45 49 L 18 85/47 98 09/20/24 07:30 53 L 18 97/52 98 09/20/24 06:54 49 L 16 90/54 99 09/20/24 06:11 98.3 F 61 17 91/56 100 09/20/24 05:30 49 L 18 81/51 98 09/20/24 05:00 44 L 16 85/55 99 09/20/24 04:31 44 L 16 89/51 98 09/20/24 04:27 44 L 16 86/51 98 09/20/24 04:00 45 L 17 83/49 98 09/20/24 03:30 45 L 17 83/49 98 09/20/24 02:45 50 L 17 83/50 98 09/20/24 02:14 45 L 17 91/53 99 09/20/24 01:45 44 L 17 83/52 98 09/20/24 00:39 98.4 F 51 L 18 95/58 98 09/19/24 22:53 45 L 09/19/24 22:28 46 L 17 113/73 98 09/19/24 21:16 53 L 16 136/87 98 09/19/24 18:40 75 140/86 98 10/31/24 18:38 42 L 09/19/24 18:00 46 L 09/19/24 17:00 55 L 09/19/24 16:00 62 09/19/24 15:27 75 09/19/24 15:10 48 L 20 148/90 98 09/19/24 14:55 41 L 18 151/80 98 09/19/24 14:05 35 L 12 119/81 98 09/19/24 13:25 97.5 F L 41 L 16 127/85 97 09/19/24 12:25 45 L 16 121/98 97 09/19/24 12:05 61 16 121/90 97 09/19/24 11:35 46 L 14 125/86 97 09/19/24 11:02 50 L 14 135/87 99 Intake and Output 09/19/24 09/20/24 09/20/24 22:59 06:59 14:59 Intake Total 3.445 Balance 3.445 Intake: Intake, IV Titration 3.445 Amount DOPamine DRIP 800 mg In 3.445 Dextrose/Water 1 250ml. bag @ 5 MCG/KG/MIN 5.103 mls/hr IV .Q24H [facility] Rx#: [id number] Results 09/19/24 10:19 09/20/24 04:14 Cardiac Enzymes 09/19/24 09/20/24 Range/Units 10:19 04:14 AST 30 32 (14-36) U/L Coagulation 09/19/24 Range/Units 10:19 PT 12.2 (10.0-12.5) sec Comprehensive Metabolic Panel 09/19/24 09/19/24 09/20/24 Range/Units 10:19 12:45 04:14 Sodium 134 L 135 L 135 L (137-145) mmol/L Potassium 4.6 4.4 4.3 (3.5-5.1) mmol/L Chloride 103 105 114 H (98-107) mmol/L Carbon Dioxide 21 L 21 L 17 L (22-30) mmol/L BUN 34 H 34 H 28 H (7-17) mg/dL Creatinine 1.10 H 0.99 0.83 (0.52-1.04) mg/dL Glucose 187 H 135 H 77 (74-99) mg/dL Calcium 9.9 9.0 8.1 L (8.4-10.2) mg/dL AST 30 32 (14-36) U/L ALT 24 20 (4-34) U/L Alkaline Phosphatase 84 52 (38-126) U/L Total Protein 7.2 5.2 L (6.3-8.2) g/dL Albumin 4.5 3.0 L (3.5-5.0) g/dL Current Medications Generic Name Dose Route Start Last Admin Trade Name Freq PRN Reason Stop Dose Admin Acetaminophen 650 mg 09/19/24 14:47 Acetaminophen Tab 325 Mg Tab PO Q6HR PRN Mild Pain or Fever > 100.5 Haloperidol Lactate 5 mg 09/19/24 19:55 09/19/24 20:05 Haloperidol Lactate 5 Mg/Ml 1 Ml Vial IM 5 mg Q6HR PRN Administration Agitation or Acute Psychosis Sodium Chloride 1,000 mls @ 100 mls/hr 09/19/24 15:00 09/20/24 00:08 Saline 0.9% IV 100 mls/hr .Q10H MATTHEW Administration Dopamine HCl/Dextrose 800 mg/ 250 mls @ 5.103 mls/hr 09/20/24 08:15 09/20/24 09:19 IV Solution IV 5 mcg/kg/min .Q24H MATTHEW 5.103 mls/hr Titration Protocol 5 MCG/KG/MIN Naloxone HCl 0.2 mg 09/19/24 14:47 Naloxone 0.4 Mg/Ml 1 Ml Vial IV Q2M PRN Opioid Reversal Ondansetron HCl 4 mg 09/19/24 14:47 Ondansetron 4 Mg/2 Ml Vial IVP Q8HR PRN Nausea And Vomiting Pantoprazole Sodium 40 mg 09/20/24 09:00 09/20/24 10:36 Pantoprazole 40 Mg/10 Ml Vial IV 40 mg DAILY MATTHEW Administration Intake and Output 09/19/24 09/20/24 09/20/24 22:59 06:59 14:59 Intake Total 3.445 Balance 3.445 Intake: Intake, IV Titration 3.445 Amount DOPamine DRIP 800 mg In 3.445 Dextrose/Water 1 250ml. bag @ 5 MCG/KG/MIN 5.103 mls/hr IV .Q24H MATTHEW Rx#: [id number] 09/19/24 10:19 09/20/24 04:14
[2024-09-20] MEDS: ACETAMINOPHEN TAB 325 MG TAB PO PRN (13:21)
--- NOTE | 2024-09-20 13:53 | P.CN ---
Psychiatric Consult - . Consult date: 09/20/24 Consult:: 09/20/24 13:38 IDENTIFYING DATA: This patient is a 43-year-old female with 4 children, currently living with her youngest 2 children, with history of bipolar disorder REASON FOR REFERRAL: Psychiatry was consulted for intentional OD, suicidal ideations HISTORY OF PRESENT ILLNESS: The patient presented to the hospital on 09/19 with a chief complaint of overdose. Per ED note, "This is a 43-year-old female who presents to the emergency department for overdose and psychiatric valuation. Patient brought in by [facility] for overdose. States that she took a handful of approximately 20 naproxen tablets and a handful of her tizanidine. Unsure what the tizanidine dose was. Believes that she may have had 30 to 60 tablets of this left. Patient is very tearful and saying that she wanted to and still feels this way. She continues saying "I do not want to choose between my children" but does not elaborate. Denies any homicidal ideations." Most recent EKG revealed sinus bradycardia with prolonged QTc of 534. Patient received several doses of atropine due to bradycardia and cardiology is on board. Patient seen and evaluated on the unit. She states having a diagnosis of bipolar disorder with psychotic features and for the past year she has been noticing difficulties with distinguishing reality from fiction. She states upon reflection it is silly however during those episodes she truly believes that someone is hurting her children. She reports hearing children cry and thought she heard someone harming her son. She states she took a handful of naproxen and muscle relaxants and attempt to commit suicide as she felt she had to choose between which children to save which she could not. Patient displayed some disorganization in her thoughts during interview. She reports adherence with her medications and follows with [facility]. She states feeling much better today however was made aware that she will be transferring to the inpatient psych unit upon medical clearance. At this time patient denies any suicidal or homical ideations, intent or plan. Patient denies any auditory, visual hallucinations and denies any paranoia or delusions. Patients admits to using no substances. PAST PSYCHIATRIC HISTORY: Patient has a a history of bipolar disorder. Patient is currently prescribed Abilify 10 mg, Remeron 15 mg, Wellbutrin XL 300 mg. She reports trialing several psychotropic medications including Invega, lithium, Zoloft, Lexapro. Patient reports at least 5 inpatient hospitalizations, most recent being December of this year at [facility]. Follows with [facility] outpatient and sees Dr. De Guzman and has a therapist. Patient denies any history of suicide attempts in the past. PAST MEDICAL HISTORY: Narcolepsy. ALLERGIES: as per EMR. CHEMICAL DEPENDENCY HISTORY: as per HPI. FAMILY PSYCHIATRIC/SUBSTANCE USE HISTORY: Patient reports father completed suicide and abused alcohol SOCIAL HISTORY: Patient currently stays with 2 of her children however has 4 kids total. She is . She completed schooling up to the 12th grade. She is unemployed however applied for Social Security. She denied any legal issues MENTAL STATUS EXAM: General Appearance: Patient appears to be stated age is alert, pleasant, and cooperative. Patient appears to have fair hygiene and grooming wearing hospital gown with fair eye contact. Behavior: Patient is calmly lying in bed without any agitated behavior. Speech: Patient's speech is fluent and nonpressured. Mood/Affect: Patient reports their mood is "better now", affect is congruent Suicidality/Homicidality: Patient denies having any suicidal or homicidal ideation intent or plan. Perceptions: Patient denies any visual hallucinations and denies any auditory hallucinations Though content/process: There is some slight disorganization in her thoughts h owever she denied any paranoia or delusions Memory and concentration: AOX3, grossly intact for the purposes of this session. Can spell "WORLD" backwards Judgment and insight: Poor IMPRESSIONS: Suicide attempt via OD Bipolar 1 disorder with psychotic features PLAN: -At this time patient DOES meet criteria for inpatient psychiatric admission. -Would recommend the following medication changes/additions: Will hold off on continuing her psychotropic medications pending medical clearance -Continue 1:1 sitter for safety -Cannot leave AMA at this time. Patient will need a petition and certification if attempting to leave AMA. -When medically stable, patient is eligible for transfer to a psych bed when available. -Communicated plan to patient's nurse -Psychiatry will sign off at this time -Please contact with any questions. 09/20/24 13:48 09/20/24 13:48
[2024-09-20] MEDS ORDERED: MIRTAZAPINE 15 MG TAB PO PRN (16:51)
--- NOTE | 2024-09-20 17:10 | CA ---
Transthoracic Echo Report Name: Kasia Alexander Age: 43 Gender: F : 1980 Exam Date: 09/20/2024 13:47 Exam Location: [place] [facility] Ht (in): 63 Wt (lb): 120 Ordering Physician: Sue Mendez Attending/Referring Phys: [id number], Vanessa [employer] Mgr Josefina Arrieta RDCS Procedure CPT: Indications: bradycardia, lv function, overdose Cardiac Hx: Technical Quality: Good Contrast 1: Total Dose (mL): Contrast 2: Total Dose (mL): MEASUREMENTS (Male / Female) Normal Values 2D ECHO LV Diastolic Diameter PLAX 4.5 cm 4.2 - 5.9 / 3.9 - 5.3 cm LV Systolic Diameter PLAX 2.8 cm IVS Diastolic Thickness 0.7 cm 0.6 - 1.0 / 0.6 - 0.9 cm LVPW Diastolic Thickness 0.9 cm 0.6 - 1.0 / 0.6 - 0.9 cm LV Relative Wall Thickness 0.3 LVOT Diameter 2.0 cm LV Diastolic Volume MOD BP 86.6 cm??? 67 - 155 / 56 - 104 cm??? LV Systolic Volume MOD BP 29.0 cm??? 22 - 58 / 19 - 49 cm??? LV Ejection Fraction MOD BP 66.5 % >= 55 % LV Cardiac Index MOD BP 2480.7 cm???/min???m??? LV Diastolic Volume MOD 4C 89.3 cm??? LV Systolic Volume MOD 4C 31.2 cm??? LV Ejection Fraction MOD 4C 65.1 % LV Cardiac Index MOD 4C 2501.7 cm???/min???m??? LV Diastolic Length 4C 8.7 cm LV Systolic Length 4C 6.6 cm LV Diastolic Volume MOD 2C 83.6 cm??? LV Systolic Volume MOD 2C 26.2 cm??? LV Ejection Fraction MOD 2C 68.7 % LV Cardiac Index MOD 2C 2469.5 cm???/min???m??? LV Diastolic Length 2C 8.7 cm LV Systolic Length 2C 6.4 cm LA Volume 67.0 cm??? 18 - 58 / 22 - 52 cm??? LA Volume Index 43.1 cm???/m??? 16 - 28 cm???/m??? Ascending Aorta Diameter 2.8 cm DOPPLER AV Peak Velocity 180.0 cm/s AV Peak Gradient 13.0 mmHg AV Mean Velocity 119.8 cm/s AV Mean Gradient 6.4 mmHg AV Velocity Time Integral 34.9 cm LVOT Peak Velocity 137.5 cm/s LVOT Peak Gradient 7.6 mmHg LVOT Velocity Time Integral 26.5 cm LVOT Stroke Volume 80.3 cm??? LVOT Stroke Volume Index 51.6 ml/m??? LVOT Cardiac Index 3456.4 cm???/min???m??? AV Area Cont Eq vti 2.3 cm??? AV Area Cont Eq pk 2.3 cm??? MV Area PHT 4.3 cm??? Mitral E Point Velocity 99.5 cm/s Mitral A Point Velocity 68.1 cm/s Mitral E to A Ratio 1.5 MV Deceleration Time 177.2 ms TR Peak Velocity 219.8 cm/s TR Peak Gradient 19.3 mmHg Right Atrial Pressure 5.0 mmHg Pulmonary Artery Systolic Pressu 24.3 mmHg Right Ventricular Systolic Press 24.3 mmHg PV Peak Velocity 119.0 cm/s PV Peak Gradient 5.7 mmHg FINDINGS Left Ventricle Left ventricular ejection fraction is estimated at 60-65 %. Left ventricular cavity size normal. Left ventricular wall thickness normal. No obvious regional wall motion abnormalities. Right Ventricle Normal right ventricular size and function. Right ventricular systolic pressure within normal limits. Right Atrium Normal right atrial size. Left Atrium Moderately increased left atrial volume. Mildly increased left atrial area. Mitral Valve Mitral valve thickened. No evidence for mitral valve prolapse. No mitral stenosis. No mitral regurgitation. Aortic Valve Trileaflet aortic valve. No aortic valve stenosis or regurgitation. Tricuspid Valve Structurally normal tricuspid valve. No tricuspid stenosis. Trace tricuspid regurgitation. Pulmonic Valve Structurally normal pulmonic valve. No pulmonic stenosis. No pulmonic regurgitation. Pericardium No pericardial effusion. Aorta Normal size aortic root and proximal ascending aorta. CONCLUSIONS Normal LV function Aneurysmal dilatation of the interatrial septum Previewed by: Dr. Reyes Orellana MD (Electronically Signed) Final Date: 20 September 2024 17:09
[2024-09-20] MEDS: ARIPiprazole 10 MG TAB PO SCH (20:10)
[2024-09-21 04:20] VITALS: RESP 16
--- NOTE | 2024-09-21 06:21 | P.PN ---
Subjective Progress Note Date: 09/21/24 The patient is a 43-year-old female patient was admitted to the hospital with sinus bradycardia and hypotension after a suicidal attempt and overdose with Zanaflex. She underwent an echo which revealed normal LV systolic function with no significant valvular abnormalities be TSH came in to be unremarkable. Overall 2023 The patient was seen and evaluated this morning which she is asymptomatic but she is on dopamine at 5 mics. Am going to stop the dopamine and monitor the heart rate. If she is asymptomatic and not hypotensive without any dopamine we will continue the current medical regimen at this point and avoid any AV zaid jasmeet agents and monitor the patient for additional 24 hours. If she starts being symptomatic or severe bradycardia or hypotension I would restart her back on dopamine and transferred the patient to the intensive care unit. The examination is remarkable for regular rhythm with a clear breathing sounds bilaterally and no edema was noted Assessment Symptomatic bradycardia Suicidal attempt Plan DC dopamine and monitor the heart rate and blood pressure Follow-up with the patient Advised monitoring the patient for additional 24 hours Objective - Vital Signs Vital signs: Vital Signs Temp 98 F 09/21/24 04:10 Pulse 63 09/21/24 04:10 Resp 16 09/21/24 04:10 BP 118/68 09/21/24 04:10 Pulse Ox 98 09/21/24 04:10 FiO2 Intake & Output 09/20/24 09/20/24 09/21/24 06:59 18:59 06:59 Intake Total 3.445 126.993 Balance 3.445 126.993 Weight 54.7 kg Intake: IV 20 Invasive Line 2 20 Intake, IV Titration 3.445 106.993 Amount DOPamine DRIP 800 mg In 3.445 106.993 Dextrose/Water 1 250ml. bag @ 5 MCG/KG/MIN 5.103 mls/hr IV .Q24H MATTHEW Rx#: [id number] Oral 0 Other: Voiding Method Toilet # Voids 0 2 # Bowel Movements 0 1 - Labs CBC & Chem 7: 09/19/24 10:19 09/20/24 04:14
[2024-09-21 16:08] VITALS: BMI 21.3
--- NOTE | 2024-09-21 19:20 | DS ---
DISCHARGE SUMMARY CHIEF COMPLAINT: Drug overdose with suicidal intent. HISTORY OF PRESENT ILLNESS AND PHYSICAL EXAMINATION: Details of this lady's history and physical can be found in the initial workup. LABORATORY STUDIES: While she was in the hospital, she had laboratory studies, details of which can be found in the laboratory section of her chart. COURSE IN THE HOSPITAL: After admission, she was placed on bedrest and started on intravenous fluids and suicide precautions. She had no sequelae or problems. Seen by Psychiatry who agreed to take her in the inpatient status in the psychiatric unit and she was cleared to move to that unit on the . FINAL DIAGNOSES: 1. Drug ingestion and overdose. 2. Major depression. 3. Suicidal attempt. 4. Bipolar disorder. OPERATIONS: None. CONSULTATIONS: Psychiatry. She is improved. CIERA / RENEE: [id number] /
[2024-09-21 19:57] VITALS: BP 141/69; PULSE 70; TEMP 98
--- NOTE | 2024-09-21 23:50 | HP ---
HISTORY AND PHYSICAL CHIEF COMPLAINT: Overdose. HISTORY OF PRESENT ILLNESS: This lady came to the emergency room having ingested a muscle relaxant and Naprosyn stating that she wanted to . REVIEW OF SYSTEMS: Unremarkable. Past medical history, family history, and personal and social histories are unremarkable and noncontributory. PHYSICAL EXAMINATION: VITAL SIGNS: Normal. HEAD, EARS, EYES, NOSE, MOUTH, AND THROAT: Normal. Neck veins are not distended. CHEST: Clear. CARDIAC: Exam is normal with no murmurs. ABDOMEN: Soft and nontender without any masses. Bowel sounds are present. EXTREMITIES: Normal. NEUROLOGIC: She is intact. She is very depressed. IMPRESSION: 1. Drug ingestion overdose. 2. Major depression. 3. Suicidal attempt. PLAN: 1. Bed rest. 2. IV fluids. 3. Suicide precautions. 4. Consult with Psychiatry. CIERA / RENEE: [id number] /
--- NOTE | 2024-09-21 23:56 | PN ---
PROGRESS NOTE DATE OF SERVICE: 09/20/2024 CHIEF COMPLAINT: Overdose. HISTORY OF PRESENT ILLNESS: This lady is awake and alert. She has had a slow pulse, and her blood pressure has also been low. She did respond to IV fluids. PHYSICAL EXAMINATION: CHEST: Clear. CARDIAC: Normal. IMPRESSION: 1. Drug ingestion overdose. 2. Hypotension. 3. Bradycardia. PLAN: Continue with IV fluids, and she is being followed by Psychiatry. MMBATSHEVA / ANNIEN: [id number] /
[2024-09-23 10:27] LABS: Phosphorus 3.8 (2.4-5.1)
== END 2024-09-21 20:29 | disposition still patient (30) | DRG 817 ==
LOC: EC 09:49 → 3SCARD 14:39
PROVIDERS: ADMIT Family Medicine; ATTEND Family Medicine
DX: T39.312A Poisoning by propionic acid derivatives, intentional self-harm, initial encounter (principal); I95.2 Hypotension due to drugs; F31.9 Bipolar disorder, unspecified; T42.8X2A Poisoning by antiparkinsonism drugs and other central muscle-tone depressants, intentional self-harm, initial encounter; E05.00 Thyrotoxicosis with diffuse goiter without thyrotoxic crisis or storm; I10 Essential (primary) hypertension; Z79.899 Other long term (current) drug therapy; R00.1 Bradycardia, unspecified; Z56.0 Unemployment, unspecified; Z81.8 Family history of other mental and behavioral disorders; Z81.1 Family history of alcohol abuse and dependence
CPT/HCPCS: 36415; 80048; 80053; 80143; 80179; 80306; 80320; 81001; 81025; 82075; 83605; 83690; 83735; 84100; 84443; 85025; 85610; 87635; 93005; 93306; 96361; 96372; 96375; 96376; 99291; 99406

== ENCOUNTER 2024-09-21 18:56 | Inpatient (IN) | payer MEDICAID, OTHER ==
[2024-09-21] MEDS ORDERED: MAG HYDROX/AL HYDROX/SIMETH 355 ML BOTTLE PO PRN (19:21)
[2024-09-21] MEDS ORDERED: MAGNESIUM HYDROXIDE 2,400 MG/30 ML CUP PO PRN (19:21)
[2024-09-21] MEDS: ARIPiprazole 10 MG TAB PO SCH (21:34)
[2024-09-21] MEDS: MIRTAZAPINE 15 MG TAB PO PRN (21:35)
[2024-09-22 07:10] VITALS: RESP 16
[2024-09-22] MEDS: NICOTINE 21MG/24HR PATCH TRANSDERM SCH (08:45)
[2024-09-22] MEDS: LORazepam 0.5 MG TAB PO PRN (09:00)
[2024-09-22 09:52] LABS: ALT 23 U/L (4-34); AST 29 U/L (14-36); Albumin 4.6 g/dL (3.5-5.0); Alkaline Phosphatase 65 U/L (38-126); Bilirubin, Delta 0.1 mg/dL (0.0-0.2); Bilirubin,Unconjugated 0.5 mg/dL (0.0-1.1); Total Bilirubin 0.6 mg/dL (0.2-1.3); Total Protein 7.2 g/dL (6.3-8.2)
[2024-09-22] MEDS: buPROPion XL 300 MG TAB.ER.24H PO SCH (10:18)
[2024-09-22 17:13] LABS: Chol/HDL Ratio 3.36 Ratio; LDL Cholesterol,Calculated 134.7 mg/dL (0.0-131.0)
--- NOTE | 2024-09-22 17:33 | P.HP ---
Psychiatric H&P - . 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 HPI: Patient was seen as a psychiatry consult by Dr. Mendosa while on the medical unit s/p overdose. Per Dr. Mendosa consult note dated 09/20/24: "HISTORY OF PRESENT ILLNESS: The patient presented to the hospital on 09/19 with a chief complaint of overdose. Per ED note, "This is a 43-year-old female who presents to the emergency department for overdose and psychiatric valuation. Patient brought in by [facility] for overdose. States that she took a handful of approximately 20 naproxen tablets and a handful of her tizanidine. Unsure what the tizanidine dose was. Believes that she may have had 30 to 60 tablets of this left. Patient is very tearful and saying that she wanted to and still feels this way. She continues saying "I do not want to choose between my children" but does not elaborate. Denies any homicidal ideations." Most recent EKG revealed sinus bradycardia with prolonged QTc of 534. Patient received several doses of atropine due to bradycardia and cardiology is on board. Patient seen and evaluated on the unit. She states having a diagnosis of bipolar disorder with psychotic features and for the past year she has been noticing difficulties with distinguishing reality from fiction. She states upon reflection it is silly however during those episodes she truly believes that someone is hurting her children. She reports hearing children cry and thought she heard someone harming her son. She states she took a handful of naproxen and muscle relaxants and attempt to commit suicide as she felt she had to choose between which children to save which she could not. Patient displayed some disorganization in her thoughts during interview. She reports adherence with her medications and follows with [facility]. She states feeling much better today however was made aware that she will be transferring to the inpatient psych unit upon medical clearance. At this time patient denies any suicidal or homicidal ideations, intent or plan. Patient denies any auditory, visual hallucinations and denies any paranoia or delusions. Patients admits to using no substances. PAST PSYCHIATRIC HISTORY: Patient has a a history of bipolar disorder. Patient is currently prescribed Abilify 10 mg, Remeron 15 mg, Wellbutrin XL 300 mg. She reports trialing several psychotropic medications including Invega, lithium, Zoloft, Lexapro. Patient reports at least 5 inpatient hospitalizations, most recent being December of this year at [facility]. Follows with [facility] outpatient and sees Dr. De Guzman and has a therapist. Patient denies any history of suicide attempts in the past." On my evaluation, patient is calm, polite, cooperative. She reports she sees [facility] on an outpatient basis. She was diagnosed with "Bipolar I disorder with severe depression and psychosis". She is diagnosed as having Bipolar I disorder but has never been admitted to the hospital in a manic episode. She admits to having mood swings that are "pretty intense", she reports her mood swings last minutes. She reports depressed mood, difficulty falling asleep and staying asleep, fatigue, anhedonia, excessive guilt, low energy, low concentration, low appetite with unintentional weight loss of 35 pounds (reports she went to a doctor for medical check for the weight loss and no other reasons for weight loss were found, so likely depression is the reason). She denies suicidal ideations now, but is s/p suicide attempt by multi-drug overdose on 09/19/24, resulting in admission to medical floor. She reports global worries that are difficult to control, restless/keyed up on edge, difficulty with falling and staying asleep due to anxiety and narcolepsy, muscle tension, headaches, difficulty concentrating due to anxiety, irritability with mood swings. She reports she was previously prescribed antidepressants but did not give them a fair trial because she was in the [facility] ([facility]2013 Lexapro, Celexa, Cymbalta, Effexor; about 2-6 weeks for each med and then would stop the antidepressant. She also struggles with narcolepsy with makes her tired. She took Zoloft for about 3 months and reports it didn't work. She denies any wisam as a result of these antidepressant trials. She denies any auditory or visual hallucinations. She admits to stress- related paranoia; thinks someone may follow her. She is afraid of being attacked starting last year. She denies a history of abuse. Patient denies any flight of ideas racing thoughts and increased in goal directed behavior. Patient denies any drug or alcohol abuse. She drinks a few times a year when sister comes to visit. PAST PSYCHIATRIC HISTORY: Patient states that she was diagnosed as Bipolar II at [facility] 2022, then "Bipolar I disorder with severe depression and psychosis" on discharge from [facility] in December 2023. Her first diagnoses was MDD in her early 20's. She first saw a psychiatrist at [facility] in [phone] (in her late 30's). Home psychiatric medications prior to admission: Wellbutrin XL 300 mg daily, Abilify 10 mg daily, Remeron 15 mg QHS PRN for insomnia (would take rarely at home, maybe once every couple of weeks) Past medication trials: Seroquel, Latuda, Fetzima, Rodeo, Lexapro, Celexa, Cymbalta, Effexor, Zoloft (2000), Trilpetal, Adderall, Lamictal, Paxil, Remeron as needed. Previous psychiatric hospitalizations: Six prior hospitalizations (2000 (for SI, MDD), 2003 PHP anxiety/depression, 2009 (for suicide attempt, Bipolar ?), 2016 at [facility] (discharged on Abilify, Rodeo); (most recently [facility] for 10 days (estimated admission/discharge dates December 17-Dec 27, 2023). First psychiatric hospitalization was in her early 20's in 2000 for suicidal thoughts and was diagnosed with MDD at that time. None of these hospitalizations have ever been wisam. Psychiatric outpatient follow-up: [facility] Dr. De Guzman History of suicide attempts in the past: Three suicide attempts (first suicide attempt at ~28 yo, prior to this most recent attempt by overdose on 09/19/2024; 4 in total. PMH: Past Medical History: No Reported History, CVA/TIA ([phone]?) Additional Past Medical History / Comment(s): Narcolepsy, UTI History of Any Multi-Drug Resistant Organisms: None Reported Past Surgical History: Hernia Repair Additional Past Surgical History / Comment(s): Bilateral inguinal hernia repairs Past Anesthesia/Blood Transfusion Reactions: No Reported Reaction Past Psychological History: Bipolar, Depression Smoking Status: Vaper Past Alcohol Use History: None Reported Past Drug Use History: None Reported ALLERGIES: as per EMR CHEMICAL DEPENDENCY HISTORY: as per HPI FAMILY PSYCHIATRIC/SUBSTANCE USE HISTORY: Father: Alcoholism and abused marijuana and cocaine; her father killed himself in 2000. Maternal grandmother with severe anxiety. SOCIAL HISTORY: She was born and raised in [place]. Parents when she was 2 years old and was raised by mother. Her mother in 2007. She has one sister and two-half brothers. She has a relationship with her sister but not her half- brothers. Her support system includes her adult children (26 yo daughter, 23 yo, 21 yo) and [facility]. She graduated high school. She denied having any problems in school. 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 She is unemployed. She last worked in 2015. She is in 2006, receives child support, has 4 children (has a 15 year old with autism). MENTAL STATUS EXAM: General Appearance: Patient appears to be [] stated age is alert, [directable, and attempts to cooperate]. Patient appears to have [poor] hygiene and grooming. Behavior: Patient is seated without any agitated behavior. [] Speech: Patient's speech is [fluent and nonpressured.] Mood/Affect: Patient reports their mood is [depressed], affect is congruent and constricted. Suicidality/Homicidality: Patient denies having any homicidal ideation intent or plan. [Denies any suicidal ideations intent or plan] Perceptions: Patient denies any visual hallucinations [and denies any auditory hallucinations] Though content/process: [There is no evidence of any delusional thought content and thought process is linear and goal-directed.] Memory and concentration: AOX3, grossly intact for the purposes of this session. Can spell "WORLD" backwards Judgment and insight: [poor] STRENGTHS/WEAKNESSES: Strength is that patient is [resilient]. Weakness is that patient [has poor judgment and is impulsive] INTELLECT: Average IMPRESSIONS: Major depressive disorder, recurrent, severe with psychotic features (fear of leaving the house, being followed, etc) S/P Suicide attempt by multi-drug overdose (Naproxen, Tizanidine) Generalized anxiety disorder with panic attacks PLAN: -Patient is admitted under voluntary status to [facility] for stabilization of psychiatric symptoms and safety. Patient has signed adult voluntary form and medication consent and is placed in patient's chart. -Medications: Discontinue Wellbutrin XL 300 mg daily since this is likely making her anxiety worse. Decrease Abilify from 10 mg QHS to 5 mg QHS for 2 days then discontinue. Cross taper-off of Abilify and onto low-dose Zyprexa. Discontinue Remeron 15 mg QHS PRN for insomnia because she was rarely taking this. Start Prozac 10 mg daily for depression, anxiety, panic attacks; with plan to gradually taper as needed. Start Zyprexa 2.5 mg QHS for psychotic features/insomnia/question of whether she is really bipolar. -Ativan and Haldol PRN for agitation/aggression -Patient was informed of the risks, benefits and side effects of the medication and patient verbally consented to taking the medications. Patient signed med consent form and was placed in chart. -Internal Medicine consult to perform medical evaluation and physical. -NRT - nicotine patch -SW on board for discharge planning. Encourage patient to participate in groups to work on coping skills. Will await deferral and court date. Allergies Allergy/AdvReac Type Severity Reaction Status Date / Time cephalexin monohydrate Allergy Mild Dyspnea Verified 09/22/24 08:13 [From Keflex] Vital Signs Temp 98.1 F 09/22/24 06:38 Pulse 91 09/22/24 08:52 Resp 16 09/22/24 06:38 BP 158/98 09/22/24 08:52 Pulse Ox 99 09/22/24 06:38 FiO2 Intake & Output 09/21/24 09/22/24 09/22/24 19:59 06:59 18:59 Weight 53.8 kg Laboratory Last Values Total Bilirubin 0.6 mg/dL (0.2-1.3) 09/22/24 08:10 Conjugated Bilirubin 0.0 mg/dL (0.0-0.3) 09/22/24 08:10 Unconjugated Bilirubin 0.5 mg/dL (0.0-1.1) 09/22/24 08:10 Delta Bilirubin 0.1 mg/dL (0.0-0.2) 09/22/24 08:10 AST 29 U/L (14-36) 09/22/24 08:10 ALT 23 U/L (4-34) 09/22/24 08:10 Alkaline Phosphatase 65 U/L (38-126) 09/22/24 08:10 Total Protein 7.2 g/dL (6.3-8.2) 09/22/24 08:10 Albumin 4.6 g/dL (3.5-5.0) 09/22/24 08:10 09/22/24 17:31
[2024-09-22] MEDS: FLUoxetine HCL 10 MG CAP PO SCH (18:25)
[2024-09-22] MEDS: OLANZapine 2.5 MG TAB PO SCH (20:36)
[2024-09-22] MEDS: ARIPiprazole 5 MG TAB PO SCH (20:36)
[2024-09-22] MEDS ORDERED: diphenhydrAMINE 50 MG CAP PO PRN (20:43)
--- NOTE | 2024-09-22 22:29 | HP ---
HISTORY AND PHYSICAL CHIEF COMPLAINT: Depression with suicidal thoughts. HISTORY OF PRESENT ILLNESS: Details of this lady's history can be found in the documents accompanying her from the medical floor. Review of systems, past medical history, family history and personal and social histories are all detailed there and are noncontributory. PHYSICAL EXAMINATION: VITAL SIGNS: Normal. HEAD, EARS, EYES, NOSE, MOUTH: Normal. CHEST: Clear. CARDIAC: Normal. ABDOMEN: Soft, nontender. EXTREMITIES: Normal. NEUROLOGICAL: She is intact. ASSESSMENT: She is admitted to the hospital with diagnoses of, 1. Major depression. 2. Drug overdose. RECOMMENDATIONS: None. MMODL / IJN: [id number] /
[2024-09-23] MEDS: IBUPROFEN 600 MG TAB PO PRN (11:15)
[2024-09-23] MEDS: FLUoxetine HCL 10 MG CAP PO STA (11:15)
--- NOTE | 2024-09-23 11:43 | P.PN ---
Progress Note - Text Progress Note Date: 09/23/24 Interval History: Patient was seen wandering the hallways and was directable and agreeable to sp jazlyn with short story writer in her room. She reports high anxiety however states the Ativan is helpful. She inquires on scheduling Ativan however the risks with long-term benzodiazepine use was discussed with patient and she was agreeable instead with trying Vistaril for her anxiety. She reports anxiety related to social situations as she feels as though people are judging her or talking about her. Reporting slight paranoia and she feels as though this prevents her from living her life as she is mostly isolative at home. She states this has been going on for about a year and she denied any triggers or stressors that prompted this. She reports history of hypomanic episodes however was not hospitalized during those periods. She states her older children looking after the younger ones. At this time patient denies any suicidal or homicidal ideations, intent or plan. Patient denies any auditory, visual hallucinations and denies delusions. Patient denies any side effects from the medications and has been compliant with meds. AIMS negative. Mental Status Exam: General Appearance: Patient appears to be stated age is alert, directable, and cooperative. Behavior: Patient is calmly seated without any agitated behavior. Speech: Patient's speech is fluent and nonpressured. Mood/Affect: Mood is improving mildly, affect is congruent and constricted. Suicidality/Homicidality: Patient denies having any suicidal or homicidal ideation intent or plan. Perceptions: Patient denies any visual hallucinations and denies any auditory hallucinations Though content/process: There is evidence of slight paranoia however no delusional thought content and thought process is overall linear. Memory and concentration: AOX3, grossly intact for the purposes of this session Judgment and insight: Improving mildly Assessment Suicide attempt via OD Bipolar 1 disorder, current episode depressed with psychotic features Generalized anxiety disorder with panic attacks Plan: -Patient continues to meet criteria for inpatient psychiatric admission for symptom stabilization and safety. Patient has signed adult voluntary form and medication consent and was placed in patient's chart. -Medications: Discontinue Abilify 5 mg at bedtime and increase Zyprexa to 5 mg at bedtime for psychosis, increase Prozac to 20 mg daily for depression, start Atarax 10 mg 3 times daily for anxiety -When necessary Ativan and Haldol for agitation/aggression. -Labs: Reviewed -NRT -nicotine patch -SW on board for discharge planning. Encouraged the patient to participate in milieu. Anticipate discharge later this week home with kids pending stabilization in symptoms
[2024-09-23] MEDS: hydrOXYzine HCL 10 MG TAB PO SCH (16:32)
[2024-09-23] MEDS: OLANZapine 5 MG TAB PO SCH (20:34)
[2024-09-24] MEDS: FLUoxetine HCL 20 MG CAP PO SCH (09:24)
[2024-09-24] MEDS: ACETAMINOPHEN TAB 325 MG TAB PO PRN (09:25)
--- NOTE | 2024-09-24 12:42 | P.PN ---
Progress Note - Text Progress Note Date: 09/24/24 Interval History: Patient was seen wandering the hallways and was directable and agreeable to nelda hobson with account underwriter in the office. She reports feeling "anxious" today and she expresses a lot on her mind. She reports feeling very remorseful in how her son found her overdosed on medications prior to arrival to the hospital. She mentioned speaking to her son about this and she has apologized however she is still struggling with guilt. Discussed with patient acceptance of her emotions at this time and encouraged her to possibly write a letter to her son so that she is able to get these thoughts out of her head and onto paper. Patient was also encouraged to rely on coping skills to which she states are walking and reading. She reports a decrease in appetite today. Continues to report slight paranoia that causes her to isolate from groups. Patient also mentions this time of year is difficult for her as she lost both parents early September and that her their days are coming up. At this time patient denies any suicidal or homicidal ideations, intent or plan. Patient denies any auditory, visual hallucinations and denies delusions. Patient has been compliant with meds. Mental Status Exam: General Appearance: Patient appears to be stated age is alert, directable, and cooperative. Behavior: Patient is calmly seated without any agitated behavior. Patient did appear fidgety in her seat and is tearful at times Speech: Patient's speech is fluent and nonpressured. Mood/Affect: Mood is "anxious", affect is congruent and constricted. Suicidality/Homicidality: Patient denies having any suicidal or homicidal ideation intent or plan. Perceptions: Patient denies any visual hallucinations and denies any auditory hallucinations Though content/process: There is evidence of slight paranoia however patient thought process is overall linear and logical Memory and concentration: AOX3, grossly intact for the purposes of this session Judgment and insight: Improving mildly Assessment Suicide attempt via OD Bipolar 1 disorder, current episode depressed with psychotic features Generalized anxiety disorder with panic attacks Plan: -Patient continues to meet criteria for inpatient psychiatric admission for symptom stabilization and safety. Patient has signed adult voluntary form and medication consent and was placed in patient's chart. -Medications: Increase Atarax to 25 mg 3 times daily for anxiety, Zyprexa to 7.5 mg at bedtime for psychosis, and will increase Prozac to 40 mg daily tomorrow for depression/anxiety given patient's side effects today -When necessary Ativan and Haldol for agitation/aggression. -Labs: Reviewed, EKG came back at normal sinus rhythm, QTc 437 -NRT -nicotine patch -SW on board for discharge planning. Encouraged the patient to participate in milieu.
[2024-09-24] MEDS: hydrOXYzine HCL 25 MG TAB PO SCH (15:54)
[2024-09-24] MEDS: OLANZapine 7.5 MG TAB PO SCH (21:06)
[2024-09-25] MEDS: NICOTINE 7MG/24HR PATCH TRANSDERM SCH (08:29)
[2024-09-25] MEDS: FLUoxetine HCL 20 MG CAP PO SCH (08:30)
--- NOTE | 2024-09-25 12:18 | P.PN ---
Progress Note - Text Progress Note Date: 09/25/24 Interval History: Patient was seen in her room and was directable and agreeable to speak with wr iter in the room. Patient notably more withdrawn and isolated than previous encounters. She mentions feeling depressed due to her inability to celebrate her daughter's 26 birthday today and her being unable to have all of her kids to visit her today as there is a 1 person at a time limit. She also mentions her mother's date is tomorrow and her father's date is next week on her birthday. She mentions this time of year is always difficult for her. She reported a decrease in her anxiety, rating this a 4/10 in severity. She continues to report poor appetite however denied any nausea loose stools or belly pain. She denies any restlessness today. She reports good sleep. She continues to display paranoia with no improvements in this, feeling like others are judging her or watching her. At this time patient denies any suicidal or homicidal ideations, intent or plan. Patient denies any auditory, visual hallucinations and denies any delusions. Patient has been compliant with meds. Mental Status Exam: General Appearance: Patient appears to be stated age is alert, directable, and cooperative. Behavior: Patient is calmly seated without any agitated behavior. Patient not ably less restless and tearful than previous encounters Speech: Patient's speech is fluent and nonpressured. Mood/Affect: Mood is improving mildly, affect is congruent and constricted. Suicidality/Homicidality: Patient denies having any suicidal or homicidal ideation intent or plan. Perceptions: Patient denies any visual hallucinations and denies any auditory hallucinations Though content/process: Patient reports paranoia however there was no evidence of delusions and thought process was overall linear and logical Memory and concentration: AOX3, grossly intact for the purposes of this session Judgment and insight: Improving mildly Assessment Suicide attempt via OD Bipolar 1 disorder, current episode depressed with psychotic features Generalized anxiety disorder with panic attacks Plan: -Patient continues to meet criteria for inpatient psychiatric admission for symptom stabilization and safety. Patient has signed adult voluntary form and medication consent and was placed in patient's chart. -Medications: Increase Prozac to 40 mg daily today for depression/anxiety however will hold at this dose for some time given side effects. Continue Zyprexa 7.5 mg at bedtime for psychosis, Atarax 25 mg 3 times daily for anxiety. -When necessary Ativan and Haldol for agitation/aggression. -Labs: Reviewed -NRT -nicotine patch -SW on board for discharge planning. Encouraged the patient to participate in milieu. Anticipate discharge early next week pending stabilization in mood symptoms
[2024-09-26] MEDS: BENZTROPINE MESYLATE 0.5 MG TAB PO SCH (10:45)
--- NOTE | 2024-09-26 11:40 | P.PN ---
Progress Note - Text Progress Note Date: 09/26/24 Interval History: Patient was seen in groups and was directable and agreeable to speak with ticket writer in the office. She reports experiencing some dizziness right before bed however does not report any dizziness this morning. Patient does mention her fluid intake has been poor and she was encouraged to drink more water. She continues to report a decrease in appetite and wishes to start supplementation with Ensure. Patient reports seeing her daughter yesterday during visitation and that they are willing to start family therapy once she is discharged. Patient reports today is the anniversary of her mother who 16 years ago however this day is still difficult for her. She reports emotional numbing which she feels both positive and negative, positive in that she is not as anxious however she has not used to not feeling her emotions so strongly. She continues to report paranoia described as feeling like someone is out to harm her however she does report her social anxiety is slightly better. Patient notably is restless while seated to which she states is an increase from her baseline and she was agreeable to starting Cogentin for EPS. At this time patient denies any suicidal or homicidal ideations, intent or plan. Patient denies any auditory, visual hallucinations and denies any delusions. Patient has been compliant with meds. Mental Status Exam: General Appearance: Patient appears to be stated age is alert, directable, and cooperative. Behavior: Patient is noted to be fidgety and restless while seated however without any agitated behavior. Speech: Patient's speech is fluent and nonpressured. Mood/Affect: Mood is improving mildly, affect is congruent and blunted however reactive. Suicidality/Homicidality: Patient denies having any suicidal or homicidal ideation intent or plan. Perceptions: Patient denies any visual hallucinations and denies any auditory hallucinations Though content/process: There is no evidence of any delusional thought content however paranoia that appears to be at baseline and thought process is linear and goal-directed. Memory and concentration: AOX3, grossly intact for the purposes of this session Judgment and insight: Improving mildly Assessment Suicide attempt via OD Bipolar 1 disorder, current episode depressed with psychotic features Generalized anxiety disorder with panic attacks Plan: -Patient continues to meet criteria for inpatient psychiatric admission for symptom stabilization and safety. Patient has signed adult voluntary form and medication consent and was placed in patient's chart. -Medications: Continue Prozac 40 mg daily for depression/anxiety, Zyprexa 7.5 mg at bedtime for psychosis, Atarax 25 mg 3 times daily for anxiety. Start Cogentin 0.5 mg twice daily for EPS -When necessary Ativan and Haldol for agitation/aggression. -Labs: Reviewed -NRT -nicotine patch -SW on board for discharge planning. Encouraged the patient to participate in milieu. Anticipate discharge home early next week pending stabilization in symptoms
--- NOTE | 2024-09-27 14:56 | P.PN ---
Progress Note - Text Progress Note Date: 09/27/24 Interval History: Patient was seen in group and was directable and agreeable to speak with entry writer in the office. She reports feeling better today. Reports sleeping well overnight and reports significant improvement in her restlessness with the Cogentin. She states her anxiety is better, rating this at 3/4 in severity. She states her headache has improved significantly and that she is attempting to be more social on the unit. Emotional numbing is also better however still present. She continues to report poor appetite which is directly related to her paranoia, feeling like people are judging her when she eats. She reports appetite is not the greatest even prior to admission however it has decreased significantly. Dietitian consult ordered given patient's poor intake. Patient states her kids were able to lock her pills up in a locked box. She has been tending to her ADLs. At this time patient denies any suicidal or homicidal ideations, intent or plan. Patient denies any auditory, visual hallucinations or delusions. Patient denies any side effects from the medications and has been compliant with meds. Mental Status Exam: General Appearance: Patient appears to be stated age is alert, directable, and cooperative. Behavior: Patient is calmly seated without any agitated behavior. Speech: Patient's speech is fluent and nonpressured. Mood/Affect: Mood is improving mildly, affect is congruent and blunted but reactive. Suicidality/Homicidality: Patient denies having any suicidal or homicidal ideation intent or plan. Perceptions: Patient denies any visual hallucinations and denies any auditory hallucinations Though content/process: There is evidence of paranoia however no delusional thought content Memory and concentration: AOX3, grossly intact for the purposes of this session Judgment and insight: Improving mildly Assessment Suicide attempt via OD Bipolar 1 disorder, current episode depressed with psychotic features Generalized anxiety disorder with panic attacks Plan: -Patient continues to meet criteria for inpatient psychiatric admission for symptom stabilization and safety. Patient has signed adult voluntary form and medication consent and was placed in patient's chart. -Medications: Continue Prozac 40 mg daily for depression/anxiety, increase Zyprexa to 10 mg at bedtime for psychosis, continue Atarax 25 mg 3 times daily for anxiety, Cogentin 0.5 mg twice daily for EPS -When necessary Ativan and Haldol for agitation/aggression. -Labs: Reviewed -NRT -nicotine patch -SW on board for discharge planning. Encouraged the patient to participate in milieu. Anticipate discharge home with children next Monday pending stabilization in symptoms
[2024-09-27 16:16] VITALS: BMI 20.9
[2024-09-27] MEDS: OLANZapine 10 MG TAB PO SCH (20:33)
--- NOTE | 2024-09-28 14:07 | P.PN ---
Progress Note - Text Progress Note Date: 09/28/24 Interval History: Patient was seen in group and was directable and agreeable to speak with life underwriter in the office. She reports feeling better today. Patient reports improvement in anxiety but continues to have reduced appetite due to feeling anxious about eating. She has been receiving oral nutrition supplements. Encouraged improved by mouth intake and fluid intake due to mildly elevated heart rate. She reports tolerating the medications well and denies concerns. Would like to be continued on current medication regimen. She reports good sleep and fair energy during the daytime. At this time patient denies any suicidal or homicidal ideations, intent or plan. Patient denies any auditory, visual hallucinations or delusions. Patient denies any side effects from the medications and has been compliant with meds. Vital Signs Temp 97.8 F 09/27/24 07:17 Pulse 102 H 09/28/24 08:22 Resp 16 09/24/24 06:55 BP 107/73 09/28/24 08:22 Pulse Ox 97 09/27/24 07:17 FiO2 Intake & Output 09/27/24 09/28/24 09/28/24 18:59 06:59 18:59 Weight 53.8 kg Mental Status Exam: General Appearance: Patient appears to be stated age is alert, directable, and cooperative. Behavior: Patient is calmly seated without any agitated behavior. Speech: Patient's speech is fluent and nonpressured. Mood/Affect: Mood is improving mildly, affect is congruent and blunted but reactive. Suicidality/Homicidality: Patient denies having any suicidal or homicidal ideation intent or plan. Perceptions: Patient denies any visual hallucinations and denies any auditory hallucinations Though content/process: There is evidence of paranoia however no delusional thought content Memory and concentration: AOX3, grossly intact for the purposes of this session Judgment and insight: Improving mildly Assessment Suicide attempt via OD Bipolar 1 disorder, current episode depressed with psychotic features Generalized anxiety disorder with panic attacks Plan: -Patient continues to meet criteria for inpatient psychiatric admission for symptom stabilization and safety. Patient has signed adult voluntary form and medication consent and was placed in patient's chart. -Medications: Continue Prozac 40 mg daily for depression/anxiety, Zyprexa to 10 mg at bedtime for psychosis, continue Atarax 25 mg 3 times daily for anxiety, Cogentin 0.5 mg twice daily for EPS -When necessary Ativan and Haldol for agitation/aggression. -Labs: Reviewed -NRT -nicotine patch -SW on board for discharge planning. Encouraged the patient to participate in milieu. Anticipate discharge home with children next Monday pending stabilization in symptoms
--- NOTE | 2024-09-29 13:54 | P.PN ---
Progress Note - Text Progress Note Date: 09/29/24 Interval History: Patient was seen in group and was directable and agreeable to speak with process description writer in the office. She reports feeling better today. she states that she used to feel anxious about others talking about her, including neighbors. She expresses concerns about what they might think about her given that she needed to be taken by ambulance to the hospital. Discuss this automatic thought further with patient using cognitive behavioral therapy. Patient was encouraged to pursue therapy outpatient consistently. She reports tolerating the medication well but feels slightly tired today. Otherwise denies all concerns and endorses improving oral intake and better appetite today. She reports good sleep and fair energy during the daytime. At this time patient denies any suicidal or homicidal ideations, intent or plan. Patient denies any auditory, visual hallucinations or delusions. Patient denies any side effects from the medications and has been compliant with meds. Vital Signs Temp 97.8 F 09/27/24 07:17 Pulse 84 09/29/24 06:49 Resp 16 09/24/24 06:55 BP 119/79 09/29/24 06:49 Pulse Ox 97 09/27/24 07:17 FiO2 Mental Status Exam: General Appearance: Patient appears to be stated age is alert, directable, and cooperative. Behavior: Patient is calmly seated without any agitated behavior. Speech: Patient's speech is fluent and nonpressured. Mood/Affect: Mood is improving mildly, affect is congruent and blunted but reactive. Suicidality/Homicidality: Patient denies having any suicidal or homicidal ideation intent or plan. Perceptions: Patient denies any visual hallucinations and denies any auditory hallucinations Though content/process: There is evidence of paranoia however no delusional thought content Memory and concentration: AOX3, grossly intact for the purposes of this session Judgment and insight: Improving mildly Assessment Suicide attempt via OD Bipolar 1 disorder, current episode depressed with psychotic features Generalized anxiety disorder with panic attacks Plan: -Patient continues to meet criteria for inpatient psychiatric admission for symptom stabilization and safety. Patient has signed adult voluntary form and medication consent and was placed in patient's chart. -Medications: Continue Prozac 40 mg daily for depression/anxiety, Zyprexa to 10 mg at bedtime for psychosis, continue Atarax 25 mg 3 times daily for anxiety, Cogentin 0.5 mg twice daily for EPS -When necessary Ativan and Haldol for agitation/aggression. -Labs: Reviewed -NRT -nicotine patch -SW on board for discharge planning. Encouraged the patient to participate in milieu. Anticipate discharge home with children next Monday pending stabilization in symptoms
--- NOTE | 2024-09-30 12:00 | P.PN ---
Progress Note - Text Progress Note Date: 09/30/24 Interval History: Patient was seen wandering the hallways and was directable and agreeable to sp jazlyn with global technical writer in the office. She states feeling much better and patient notably appears less anxious and more bright than previous encounters. She reports sleeping well with an increase in her appetite. She states the weekend was okay. She reports improvement in her restlessness and states she has been forcing herself to interact with others despite still having some slight paranoia. Patient was goal oriented today and talked about her birthday being tomorrow how she wishes to spend it with her children. She states she has not used the nicotine patch however denied any cravings and is motivated to continue to not smoke once discharged. At this time patient denies any suicidal or homicidal ideations, intent or plan. Patient denies any auditory, visual hallucinations or delusions. Patient denies any side effects from the medications and has been compliant with meds. Mental Status Exam: General Appearance: Patient appears to be stated age is alert, directable, and cooperative. Behavior: Patient is calmly seated without any agitated behavior. Patient notably less restless and anxious than previous encounters Speech: Patient's speech is fluent and nonpressured. Mood/Affect: Mood is improving mildly, affect is congruent and more reactive Suicidality/Homicidality: Patient denies having any suicidal or homicidal ideation intent or plan. Perceptions: Patient denies any visual hallucinations and denies any auditory hallucinations Though content/process: There is no evidence of any delusional thought content however there is still slight paranoia however patient has been challenging these thoughts and thought process is linear and goal-directed. Memory and concentration: AOX3, grossly intact for the purposes of this session Judgment and insight: Improving mildly Assessment suicide attempt via OD Bipolar 1 disorder, current episode depressed with psychotic features Generalized anxiety disorder with panic attacks Nicotine dependence Plan: -Patient continues to meet criteria for inpatient psychiatric admission for symptom stabilization and safety. Patient has signed adult voluntary form and medication consent and was placed in patient's chart. -Medications: Continue Prozac 40 mg daily for depression/anxiety, Zyprexa 10 mg at bedtime for psychosis/mood stabilization, Atarax 25 mg 3 times daily for anxiety, Cogentin 0.5 mg twice daily for EPS -When necessary Ativan and Haldol for agitation/aggression. -Labs: Reviewed -NRT -nicotine patch -SW on board for discharge planning. Encouraged the patient to participate in milieu. Anticipate discharge home tomorrow, with children
[2024-10-01 06:52] VITALS: BP 115/85; PULSE 72; TEMP 98
--- NOTE | 2024-10-01 13:29 | P.DS ---
Providers Date of admission: 09/21/24 20:51 Expected date of discharge: 10/01/24 Attending physician: Ana Mendosa MD Consults: 09/21/24 19:21 Consult Physician Routine Consulting Provider: Abdiel Bell Consult Reason/Comments: History and Physical, New Admission Do you want consulting provider notified?: Yes Primary care physician: Abdiel Bell - Discharge Diagnosis(es) (1) Suicide attempt Status: Acute Priority: High (2) Bipolar disorder, curr episode depressed, severe, w/psychotic features Status: Acute Priority: High (3) Generalized anxiety disorder with panic attacks Status: Chronic Priority: Medium (4) Nicotine dependence Status: Chronic Priority: Low Hospital Course: Admission HPI: Admission note was completed by Dr. Dang "On my evaluation, patient is calm, polite, cooperative. She reports she sees [facility] on an outpatient basis. She was diagnosed with "Bipolar I disorder with severe depression and psychosis". She is diagnosed as having Bipolar I disorder but has never been admitted to the hospital in a manic episode. She admits to having mood swings that are "pretty intense", she reports her mood swings last minutes. She reports depressed mood, difficulty falling asleep and staying asleep, fatigue, anhedonia, excessive guilt, low energy, low concentration, low appetite with unintentional weight loss of 35 pounds (reports she went to a doctor for medical check for the weight loss and no other reasons for weight loss were found, so likely depression is the reason). She denies suicidal ideations now, but is s/p suicide attempt by multi-drug overdose on 09/19/24, resulting in admission to medical floor. She reports global worries that are difficult to control, restless/keyed up on edge, difficulty with falling and staying asleep due to anxiety and narcolepsy, muscle tension, headaches, difficulty concentrating due to anxiety, irritability with mood swings. She reports she was previously prescribed antidepressants but did not give them a fair trial because she was in the halfway (~2013 Lexapro, Celexa, Cymbalta, Effexor; about 2-6 weeks for each med and then would stop the antidepressant. She also struggles with narcolepsy with makes her tired. She took Zoloft for about 3 months and reports it didn't work. She denies any iwsam as a result of these antidepressant trials. She denies any auditory or visual hallucinations. She admits to stress-related paranoia; thinks someone may follow her. She is afraid of being attacked starting last year. She denies a history of abuse. Patient denies any flight of ideas racing thoughts and increased in goal directed behavior. Patient denies any drug or alcohol abuse. She drinks a few times a year when sister comes to visit." Hospital course: Upon admission to the unit patient was directable and agreeable to commence treatment and signed adult voluntary form.. Patient got along well with other patients on the unit and followed unit protocol. Patient initially withdrawn and depressed affect that significantly improved towards the end of her stay, being more social and reactive. Patient was compliant with the medications and denied any side effects throughout hospital course. Patient was started on Prozac and this was increased to 40 mg daily for depression/anxiety, Zyprexa increased to 10 mg at bedtime for psychosis/mood stabilization, Atarax increased to 25 mg 3 times daily for anxiety, Cogentin 0.5 mg twice daily for EPS. Patient spoke of her stressors and engaged in therapy both group and individual. Patient was also seen by medical team for history and physical exam. Throughout the course of the hospitalization patient gradually improved with regards to mood, anxiety, sleep and became more future oriented with improved insight and judgment. On the day of discharge patient denied any suicidal or homicidal ideations intent or plan denied any auditory or visual hallucinations. The patient denied any access to guns or weapons. Patient denied any paranoia and did not endorse any delusions. Patient does not have a significant history of substance abuse and was counseled on abstaining from all substances including alcohol and marijuana. Patient was also counseled on the medications and need for regular compliance and was encouraged to follow-up with their outpatient appointment for mental health and also for primary care. Prior to discharge a family meeting will be arranged by social worker masters to answer any questions and ensure safety upon discharge incuding making sure that guns/weapons are either removed from the home or locked away. Mental status exam: General Appearance: Patient appears to be stated age is alert, pleasant, and cooperative. Patient is in no acute distress and has improved hygiene and grooming Behavior: Patient is calmly seated without any agitated behavior. Speech: Patient's speech is fluent and nonpressured. Mood/Affect: Patient reports their mood is "good", affect is congruent and euthymic, reactive. Suicidality/Homicidality: Patient denies having any suicidal or homicidal ideation intent or plan. Perceptions: Patient denies any auditory or visual hallucinations. Though content/process: There is no evidence of any delusional thought content and thought process is linear and goal-directed. More future oriented Memory and concentration: AOX3, grossly intact for the purposes of this session. Can spell "WORLD" backwards correctly. Judgment and insight: Improving Impression: Suicide attempt via OD Bipolar 1 disorder, current episode depressed with psychotic features Generalized anxiety disorder with panic attacks Nicotine dependence Plan: -Continue with discharge today as patient has improved and stabilized psychiatrically and is not currently an imminent threat to themself and/or others. Patient will remain at chronically elevated risk for harm to self and/or others due to their impulsivity and substance abuse. -Continue medications: Prozac 40 mg daily, Zyprexa 10 mg at bedtime, Atarax 25 mg 3 times daily, Cogentin 0.5 mg twice daily -Patient was counseled on the need for medication compliance and appropriate follow-up at mental health and also primary care for medical issues. Patient verbalized understanding and agreed. -Social work to help coordinate patients discharge today arrange for and conduct family meeting to ensure safety upon discharge and answer any questions/concerns. also to ensure safe home environment that guns/weapons are either removed from the home or locked away. Social work also to arrange for patients follow up appointments with [facility] for psychiatric care along with follow up with primary care provider. -Patient counseled on abstaining from recreational drugs and marijuana and alcohol. Was informed/educated on the adverse effects on their physical and mental health. Patient verbally agreed and understood. -Patient was instructed to return to the hospital or seek immediate medical care if their psychiatric or medical symptoms do worsen or reoccur. Allergies Allergy/AdvReac Type Severity Reaction Status Date / Time cephalexin monohydrate Allergy Mild Dyspnea Verified 09/22/24 08:13 [From Keflex] Vital Signs Temp 98 F 10/01/24 06:17 Pulse 72 10/01/24 06:17 Resp 16 10/01/24 06:17 BP 115/85 10/01/24 06:17 Pulse Ox 99 10/01/24 06:17 FiO2 Abnormal Labs 09/22/24 08:10 Cholesterol 234.00 H LDL Cholesterol, Calc 134.7 H HDL Cholesterol 69.70 H Patient Condition at Discharge: Stable Plan - Discharge Summary Discharge Rx Participant: No New Discharge Prescriptions: New hydrOXYzine HCL [Atarax] 25 mg PO TID 30 Days #90 tab Benztropine Mesylate [Cogentin] 0.5 mg PO BID 30 Days #60 tab FLUoxetine HCL [PROzac] 40 mg PO DAILY 30 Days #60 cap OLANZapine [ZyPREXA] 10 mg PO HS 30 Days #30 tab Discontinued buPROPion HCL [buPROPion HCL XL] 300 mg PO DAILY Mirtazapine [Remeron] 15 mg PO DAILY PRN PRN Reason: Insomnia/anxiety ARIPiprazole 10 mg PO HS Discharge Medication List Benztropine Mesylate [Cogentin] 0.5 mg PO BID 30 Days #60 tab 10/01/24 [Rx] FLUoxetine HCL [PROzac] 40 mg PO DAILY 30 Days #60 cap 10/01/24 [Rx] OLANZapine [ZyPREXA] 10 mg PO HS 30 Days #30 tab 10/01/24 [Rx] hydrOXYzine HCL [Atarax] 25 mg PO TID 30 Days #90 tab 10/01/24 [Rx] Follow up Appointment(s)/Referral(s): [facility] [Outside] - 10/04/24 10:30 am (10/04 at 10:30am with Delores Guzmán 10/[address] De Guzman) Abdiel Bell MD [Primary Care Provider] - 1 Week Patient Instructions/Handouts: How to Stop Smoking (DC), Bipolar Disorder (DC), Generalized Anxiety Disorder (GEN) Activity/Diet/Wound Care/Special Instructions: Avoid the use of street drugs and alcohol. Take all medications as prescribed. When you are in need of refills on your medications, please contact your medical provider and/or outpatient psychiatrist/provider to have this done. Please go to your scheduled outpatient appointment for aftercare treatment. If symptoms return or become worse, call the crisis line at and/or go to the nearest emergency room for evaluation. National Suicide Hotline 988 Discharge Disposition: HOME SELF-CARE
== END 2024-10-01 13:13 | disposition home or self-care (01) | DRG 753 ==
LOC: 3MHU 20:51
PROVIDERS: ADMIT Psychiatry & Neurology Psychiatry; ATTEND Psychiatry & Neurology Psychiatry
DX: F31.5 Bipolar disorder, current episode depressed, severe, with psychotic features (principal); F17.200 Nicotine dependence, unspecified, uncomplicated; F40.10 Social phobia, unspecified; F41.0 Panic disorder [episodic paroxysmal anxiety]; F41.1 Generalized anxiety disorder; G47.419 Narcolepsy without cataplexy; T50.902A Poisoning by unspecified drugs, medicaments and biological substances, intentional self-harm, initial encounter; Z56.0 Unemployment, unspecified; Z63.4 Disappearance and death of family member; Z79.899 Other long term (current) drug therapy; Z91.51 Personal history of suicidal behavior
CPT/HCPCS: 80061; 80076; 83036; 93005

== ENCOUNTER 2025-01-11 13:02 | Emergency (ER) | payer OTHER ==
[2025-01-11 13:15] VITALS: RESP 18
[2025-01-11 14:47] LABS: Basophils # (A) 0.1 k/uL (0-0.2); Basophils % (A) 1 %; Eosinophils # (A) 0.4 k/uL (0-0.7); Eosinophils % (A) 5 %; HCT 35.5 % (34.0-46.0); HGB 12.1 gm/dL (11.4-16.0); Lymphocytes # (A) 2.6 k/uL (1.0-4.8); Lymphocytes % (A) 32 %; MCH 29.3 pg (25.0-35.0); MCV 86.1 fL (80.0-100.0); Mean Platelet Volume 8.2; Monocytes # (A) 0.4 k/uL (0-1.0); Monocytes % (A) 5 %; Neutrophils # (A) 4.5 k/uL (1.3-7.7); Neutrophils % (A) 56 %; Platelet Count 214 k/uL (150-450); RBC 4.12 m/uL (3.80-5.40); RDW 13.8 % (11.5-15.5)
[2025-01-11 14:55] LABS: INR 0.9 (<1.2); Prothrombin Time 10.4 sec (10.0-12.5)
[2025-01-11 15:01] LABS: ALT 22 U/L (4-34); AST 25 U/L (14-36); African American GFR (CKD) >90 (>60 ml/min/1.73 sqM); Alkaline Phosphatase 103 U/L (38-126); Anion Gap 9 mmol/L; Blood Urea Nitrogen 23 mg/dL (7-17); Carbon Dioxide 23 mmol/L (22-30); Chloride 104 mmol/L (98-107); Glucose 91 mg/dL (74-99); Lipase 215 U/L (23-300); Non-African American GFR(CKD) 82 (>60 ml/min/1.73 sqM); Potassium 4.3 mmol/L (3.5-5.1); Sodium 136 mmol/L (137-145); Total Bilirubin 0.4 mg/dL (0.2-1.3); Total Protein 6.6 g/dL (6.3-8.2)
--- NOTE | 2025-01-11 15:12 | XR ---
EXAMINATION TYPE: XR KUB DATE OF EXAM: 01/11/2025 3:06 PM COMPARISON: CT 07/21/2024 CLINICAL INDICATION: Female, 44 years old with history of vomiting, abd pain; [facility] TECHNIQUE: One radiographic view of the abdomen was obtained. FINDINGS: The bowel gas pattern is nonspecific without dilated loops of small or large bowel. . Fecal material and gas are demonstrated throughout the colon and rectum. There is no evidence for organome avery or pneumoperitoneum. No acute osseous process. Pelvic phleboliths are present. IMPRESSION: Nonspecific bowel gas pattern without radiographic evidence for acute process. [facility], , 01/11/2025 3:10 PM
[2025-01-11] MEDS: SODIUM CHLORIDE 0.9% 1,000 ML IV ONE (15:47)
[2025-01-11] MEDS: ONDANSETRON 4 MG/2 ML VIAL IVP STA (15:48)
--- NOTE | 2025-01-11 16:49 | ED ---
General Adult HPI - General Chief complaint: GI Bleed Stated complaint: Vomiting Time Seen by Provider: 01/11/25 13:09 Source: patient Mode of arrival: ambulatory - History of Present Illness Initial comments: 44-year-old female who presents emergency department with nausea vomiting. States that she has been vomiting every 2 hours since last night. Today the patient noted that she had some blood streaking in her vomit. Patient denies taking anything for the nausea as she does not have anything at home. She has never vomited blood before. No history of liver disease. No history of peptic ulcer disease. Patient does not take any blood thinners. She has not had any black or bloody stools. No abdominal pain. She has been able to keep in some Gatorade and adama tea. States that she has family members who are sick with similar symptoms. No fevers. Denies cough or chest pain. No other alleviating, precipitating modifying factors - Related Data Previous Rx's Medication Instructions Recorded Benztropine Mesylate [Cogentin] 0.5 mg PO BID 30 Days #60 tab 10/01/24 FLUoxetine HCL [PROzac] 40 mg PO DAILY 30 Days #60 cap 10/01/24 OLANZapine [ZyPREXA] 10 mg PO HS 30 Days #30 tab 10/01/24 hydrOXYzine HCL [Atarax] 25 mg PO TID 30 Days #90 tab 10/01/24 Ondansetron Odt [Zofran Odt] 4 mg PO Q8HR PRN #30 tab 01/11/25 Allergies Allergy/AdvReac Type Severity Reaction Status Date / Time cephalexin monohydrate Allergy Mild Dyspnea Verified 01/11/25 13:15 [From KeTickPick] Review of Systems ROS Statement: Those systems with pertinent positive or pertinent negative responses have been documented in the HPI. ROS Other: All systems not noted in ROS Statement are negative. Past Medical History Past Medical History: CVA/TIA Additional Past Medical History / Comment(s): Narcolepsy History of Any Multi-Drug Resistant Organisms: None Reported Past Surgical History: No Surgical Hx Reported, Hernia Repair Additional Past Surgical History / Comment(s): Bilateral inguinal hernia repairs Past Anesthesia/Blood Transfusion Reactions: No Reported Reaction Past Psychological History: Bipolar, Depression Smoking Status: Former smoker, Vaper Past Alcohol Use History: None Reported Past Drug Use History: None Reported - Past Family History Mother Family Medical History: Cancer Additional Family Medical History / Comment(s): Mother of lung cancer with history of smoking. Father Additional Family Medical History / Comment(s): Father from suicide. He had history of alcoholism and drug abuse. Sister(s) Additional Family Medical History / Comment(s): She has one sister with no major medical problems. Brother(s) Additional Family Medical History / Comment(s): She has 2 half brothers with no major medical problems. Daughter(s) Additional Family Medical History / Comment(s): She has 4 children. One daug hter at 26, son 23, son 21, son 15. Youngest has autism. General Exam General appearance: alert, in no apparent distress Head exam: Present: atraumatic, normocephalic, normal inspection Eye exam: Present: normal appearance, PERRL, EOMI. Absent: scleral icterus, conjunctival injection, periorbital swelling ENT exam: Present: normal exam, mucous membranes moist Neck exam: Present: normal inspection. Absent: tenderness, meningismus, lymphadenopathy Respiratory exam: Present: normal lung sounds bilaterally. Absent: respiratory distress, wheezes, rales, rhonchi, stridor Cardiovascular Exam: Present: regular rate, normal rhythm, normal heart sounds. Absent: systolic murmur, diastolic murmur, rubs, gallop, clicks GI/Abdominal exam: Present: soft, normal bowel sounds. Absent: distended, tenderness, guarding, rebound, rigid Extremities exam: Present: normal inspection, full ROM, normal capillary refill. Absent: tenderness, pedal edema, joint swelling, calf tenderness Back exam: Present: normal inspection Neurological exam: Present: alert, oriented X3, CN II-XII intact Psychiatric exam: Present: normal affect, normal mood Skin exam: Present: warm, dry, intact, normal color. Absent: rash Course Vital Signs 01/11/25 01/11/25 13:09 17:00 Temperature 98.3 F 97.8 F Pulse Rate 85 78 Respiratory 18 18 Rate Blood Pressure 135/64 132/76 O2 Sat by Pulse 98 98 Oximetry Medical Decision Making - Medical Decision Making Was pt. sent in by a medical professional or institution (, PA, OVERLAY OPERATOR, urgent care, hospital, or residential...) When possible be specific @ -No Did you speak to anyone other than the patient for history (EMS, parent, family, police, friend...)? What history was obtained from this source @ -No Did you review nursing and triage notes (agree or disagree)? Why? @ -I reviewed and agree with nursing and triage notes Were old charts reviewed (outside hosp., previous admission, EMS record, old EKG, old radiological studies, urgent care reports/EKG's, residential records)? Report findings @ -No old charts were reviewed Differential Diagnosis (chest pain, altered mental status, abdominal pain women, abdominal pain men, vaginal bleeding, weakness, fever, dyspnea, syncope, headache, dizziness, GI bleed, back pain, seizure, CVA, palpatations, mental health, musculoskeletal)? @ -Gastroenteritis, Boerhaave's, Camille-Bhat tear, peptic ulcer disease, liver disease EKG interpreted by me (3pts min.). @ -Not done X-rays interpreted by me (1pt min.). @ -Yes which demonstrates no acute process CT interpreted by me (1pt min.). @ -None done U/S interpreted by me (1pt. min.). @ -None done What testing was considered but not performed or refused? (CT, X-rays, U/S, labs)? Why? @ -None What meds were considered but not given or refused? Why? @ -None Did you discuss the management of the patient with other professionals (professionals i.e. , PA, OVERLAY OPERATOR, lab, RT, psych nurse, social sciences instructor, wind tunnel engineer, teacher, chief fundraising officer, watch case polisher)? Give summary @ -No Was smoking cessation discussed for >3mins.? @ -No Was critical care preformed (if so, how long)? @ -No Were there social determinants of health that impacted care today? How? (Homelessness, low income, unemployed, alcoholism, drug addiction, transportation, low edu. Level, literacy, decrease access to med. care, half-way, rehab)? @ -No Was there de-escalation of care discussed even if they declined (Discuss DNR or withdrawal of care, Hospice)? DNR status @ -No What co-morbidities impacted this encounter? (DM, HTN, Smoking, COPD, CAD, Cancer, CVA, ARF, Chemo, Hep., AIDS, mental health diagnosis, sleep apnea, morbid obesity)? @ -None Was patient admitted / discharged? Hospital course, mention meds given and route, prescriptions, significant lab abnormalities, going to OR and other pertinent info. @ -Upon arrival patient seen and evaluated in bed 20. Thorough history and physical exam was performed. IV access was established. Laboratory studies are conducted. Patient was given Zofran and fluids. Results of the laboratory testing is discussed with the patient. She does feel improved at this time. Chest and abdominal x-ray are unremarkable. Patient likely has Camille-Bhat tear from significant vomiting. Informed the patient that we should control her vomiting at this time. She does feel comfortable discharge home after she is able to tolerate oral intake. She will be given a prescription for Zofran to t lorena every 8 hours as needed for any continued nausea. She has any new or worsening symptoms or symptoms persist she will need further workup. Patient was aware of this. She will see her primary care doctor in 2 to 4 days and return for any new or worsening symptoms Undiagnosed new problem with uncertain prognosis? @ -No Drug Therapy requiring intensive monitoring for toxicity (Heparin, Nitro, Insulin, Cardizem)? @ -No Were any procedures done? @ -No Diagnosis/symptom? @ -Acute nausea vomiting, acute hematemesis, suspected Camille-Bhat Acute, or Chronic, or Acute on Chronic? @ -Acute Uncomplicated (without systemic symptoms) or Complicated (systemic symptoms)? @ -Complicated Side effects of treatment? @ -No Exacerbation, Progression, or Severe Exacerbation? @ -No Poses a threat to life or bodily function? How? (Chest pain, USA, SC, pneumonia, PE, COPD, DKA, ARF, appy, cholecystitis, CVA, Diverticulitis, Homicidal, Suicidal, threat to staff... and all critical care pts) @ -No - Lab Data Result diagrams: 01/11/25 14:34 01/11/25 14:34 Lab Results 01/11/25 01/11/25 01/11/25 Range/Units 14:34 14:34 14:34 WBC 8.0 (3.8-10.6) k/uL RBC 4.12 (3.80-5.40) m/uL Hgb 12.1 (11.4-16.0) gm/dL Hct 35.5 (34.0-46.0) % MCV 86.1 (80.0-100.0) fL MCH 29.3 (25.0-35.0) pg MCHC 34.0 (31.0-37.0) g/dL RDW 13.8 (11.5-15.5) % Plt Count 214 (150-450) k/uL MPV 8.2 Neutrophils % 56 % Lymphocytes % 32 % Monocytes % 5 % Eosinophils % 5 % Basophils % 1 % Neutrophils # 4.5 (1.3-7.7) k/uL Lymphocytes # 2.6 (1.0-4.8) k/uL Monocytes # 0.4 (0-1.0) k/uL Eosinophils # 0.4 (0-0.7) k/uL Basophils # 0.1 (0-0.2) k/uL PT 10.4 (10.0-12.5) sec INR 0.9 (<1.2) Sodium 136 L (137-145) mmol/L Potassium 4.3 (3.5-5.1) mmol/L Chloride 104 (98-107) mmol/L Carbon Dioxide 23 (22-30) mmol/L Anion Gap 9 mmol/L BUN 23 H (7-17) mg/dL Creatinine 0.86 (0.52-1.04) mg/dL Est GFR (CKD-EPI)AfAm >90 (>60 ml/min/1.73 sqM) Est GFR (CKD-EPI)NonAf 82 (>60 ml/min/1.73 sqM) Glucose 91 (74-99) mg/dL Plasma Lactic Acid Khari (0.7-2.0) mmol/L Calcium 9.0 (8.4-10.2) mg/dL Total Bilirubin 0.4 (0.2-1.3) mg/dL AST 25 (14-36) U/L ALT 22 (4-34) U/L Alkaline Phosphatase 103 (38-126) U/L Troponin I (0.000-0.034) ng/mL Total Protein 6.6 (6.3-8.2) g/dL Albumin 4.0 (3.5-5.0) g/dL Lipase 215 (23-300) U/L 01/11/25 01/11/25 Range/Units 14:34 14:34 WBC (3.8-10.6) k/uL RBC (3.80-5.40) m/uL Hgb (11.4-16.0) gm/dL Hct (34.0-46.0) % MCV (80.0-100.0) fL MCH (25.0-35.0) pg MCHC (31.0-37.0) g/dL RDW (11.5-15.5) % Plt Count (150-450) k/uL MPV Neutrophils % % Lymphocytes % % Monocytes % % Eosinophils % % Basophils % % Neutrophils # (1.3-7.7) k/uL Lymphocytes # (1.0-4.8) k/uL Monocytes # (0-1.0) k/uL Eosinophils # (0-0.7) k/uL Basophils # (0-0.2) k/uL PT (10.0-12.5) sec INR (<1.2) Sodium (137-145) mmol/L Potassium (3.5-5.1) mmol/L Chloride (98-107) mmol/L Carbon Dioxide (22-30) mmol/L Anion Gap mmol/L BUN (7-17) mg/dL Creatinine (0.52-1.04) mg/dL Est GFR (CKD-EPI)AfAm (>60 ml/min/1.73 sqM) Est GFR (CKD-EPI)NonAf (>60 ml/min/1.73 sqM) Glucose (74-99) mg/dL Plasma Lactic Acid Khari 0.7 (0.7-2.0) mmol/L Calcium (8.4-10.2) mg/dL Total Bilirubin (0.2-1.3) mg/dL AST (14-36) U/L ALT (4-34) U/L Alkaline Phosphatase (38-126) U/L Troponin I <0.012 (0.000-0.034) ng/mL Total Protein (6.3-8.2) g/dL Albumin (3.5-5.0) g/dL Lipase (23-300) U/L Disposition Clinical Impression: Nausea & vomiting Disposition: HOME SELF-CARE Condition: Stable Instructions (If sedation given, give patient instructions): Acute Nausea and Vomiting (ED) Additional Instructions: Take the Zofran as needed every 8 hours. Follow up with your doctor and return for any new or worsening symptoms. Prescriptions: Ondansetron Odt [Zofran Odt] 4 mg PO Q8HR PRN #30 tab PRN Reason: Nausea Is patient prescribed a controlled substance at d/c from ED?: No Referrals: Abdiel Bell MD [Primary Care Provider] - 1-2 days Time of Disposition: 16:49
[2025-01-11 17:03] VITALS: BP 132/76; PULSE 78; TEMP 97.8
[2025-01-11] MEDS: ONDANSETRON 4 MG ODT STARTER PACK 2 TAB BTL PO STA (17:04)
== END 2025-01-11 17:06 | disposition home or self-care (01) ==
LOC: EC 13:02
DX: R11.2 Nausea with vomiting, unspecified (principal); Z86.73 Personal history of transient ischemic attack (TIA), and cerebral infarction without residual deficits; F17.290 Nicotine dependence, other tobacco product, uncomplicated; Z88.1 Allergy status to other antibiotic agents
CPT/HCPCS: 36415; 80053; 83605; 83690; 84484; 85025; 85610; 74018; 99284; 96374; 96361; J2405; S0119